=== PATIENT | male | born 1960 | race Caucasian/White ===

== ENCOUNTER 2024-03-16 14:20 | Inpatient (IN) | payer MEDICARE, SELFPAY ==
[2024-03-16] VITALS (7 sets, daily range): BP systolic 155–230; BP diastolic 67–93; PULSE 74–98; RESP 15–18; TEMP 36.2–37.3; O2SAT 94–98; BMI 25.2; BMI 24.5
--- NOTE | 2024-03-16 14:44 | EKG12_ITS ---
Test Reason : Blood Pressure : */* mmHG Vent. Rate : 75 BPM Atrial Rate : 75 BPM P-R Int : 154 ms QRS Dur : 98 ms QT Int : 396 ms P-R-T Axes : 36 65 129 degrees QTcB Int : 442 ms Normal sinus rhythm ST & T wave abnormality, consider anterolateral ischemia Abnormal ECG Confirmed by DOUG HUNTER, XIOMARA ([id number]), editor in chief JAMES MENDOZA ([id number]) on 03/18/2024 6:33:22 AM Referred By: Confirmed By: XIOMARA CAMACHO MD
[2024-03-16] MEDS: Ondansetron 4 MG/2 ML Vial IV (14:57)
[2024-03-16] MEDS: Morphine 4 MG/ML Syringe IV (14:58)
[2024-03-16 15:00] LABS: Absolute Lymphocyte Count 2.34 X10^3/uL (0.83-4.51); Absolute Neutrophil Count 8.3 X10^3/uL (2.0-7.7); Basophil# 0.07 X10^3/uL; Basophil% 0.6 % (0-1); Eosinophil# 0.02 X10^3/uL; Eosinophils% 0.2 % (0-5); Hematocrit 54.8 % (40-54); Lymphocyte # 2.34 X10^3/ul (0.83-4.51); Lymphocyte % 20.1 % (19-41); Mean Corp Hgb Conc 34.3 g/dL (32-36); Mean Corpuscular Hgb 32.4 pg (27.0-32.0); Mean Corpuscular Volume 94.5 fL (80-94); Mean Platelet Vol. 11.1 fl (6.2-12.0); Monocyte# 0.79 X10^3/uL; Monocyte% 6.8 % (0-10); NRBC Flagged by Analyzer 0 % (0-5); Neutrophil # 8.34 X10^3/uL (2.7-7.7); Neutrophil % 71.8 % (47-70); Platelet Count 199 K/mm3 (150-450); RBC Distribution Width CV 13.1 % (11.6-14.6); RBC Distribution Width SD 45.6 fl (35.1-43.9); White Blood Count 11.6 K/mm3 (4.4-11.0)
[2024-03-16 15:05] LABS: Differential Indicated SCAN CRITERIA MET; Hemoglobin 18.8 g/dL (13.0-16.5)
[2024-03-16 15:14] LABS: International Normalized Ratio 0.9; Partial Thromboplast Time 29.7 Seconds (24.1-36.2); Prothrombin Time (Protime)PT. 12.6 SECONDS (11.7-14.9)
--- NOTE | 2024-03-16 15:16 | CT_ITS ---
STUDY: CTA OF THE ABDOMINAL AORTA AND BILATERAL LOWER EXTREMITIES REASON FOR EXAM: Male, 64 years old. Ischemic painful right foot and bilateral short di -- Short distance claudicate are bilaterally RADIATION DOSAGE (If Supplied By Facility): CTDIvol = ( 7.57 ) mGy, DLP = ( 1407.80 ) mGycm TECHNIQUE: Axial CT angiography multi-detector data acquisition was obtained from the to the following intravenous administration of IV 100mL Isovue-370. Axial images and MIP images were reconstructed from the axial data set. Post-processing of the angiographic images was performed, with multiplanar reformation and 3D reconstruction. Individualized dose optimization techniques were used for this CT. The protocol utilizes one or more of the following dose reduction techniques: automated exposure control, adjustment of mA and/or kV according to patient size,and/or use of iterative reconstruction technique. TECHNICAL QUALITY: Good COMPARISON: None. Descriptors of Narrowing: None (0%) Mild (< 50%) Moderate (50-70%) Severe (70-90%) Subtotal/Total Occlusion (90-100%) Non-Evaluable (technically non-diagnostic FINDINGS: Calcific coronary artery disease. Air-fluid levels in the small large bowel. Hollow and solid and viscus otherwise unremarkable. Abdominal aorta: No demonstrated narrowing. Celiac and superior mesenteric arteries: There is moderate diffuse narrowing. Inferior mesenteric artery: There is severe diffuse narrowing. Right renal artery(arteries): No demonstrated narrowing. Left renal artery(arteries): No demonstrated narrowing. Right common iliac artery: There is mild diffuse narrowing. Right external iliac artery: There is severe diffuse narrowing. Right internal iliac artery: There is severe diffuse narrowing. Left common iliac artery: Occluded or nearly occluded. Left external iliac artery: Occluded or nearly occluded. Left internal iliac artery: There is severe diffuse narrowing. RIGHT LOWER EXTREMITY Right common femoral artery: There is mild diffuse narrowing. Right profundus femoris: There is moderate diffuse narrowing. Right superficial femoral: Occluded or nearly occluded Proximally With minimal reconstitution distally. Right popliteal artery: There is severe diffuse narrowing. Right tibioperoneal trunk: There is severe diffuse narrowing. Right anterior tibial artery: There is severe diffuse narrowing, with visualization of the vessel to the distal calf. Right posterior tibial artery: There is severe diffuse narrowing, with visualization of the vessel to the distal calf. Right peroneal artery: There is severe diffuse narrowing, with visualization of the vessel to the distal calf. LEFT LOWER EXTREMITY Left common femoral artery: There is moderate diffuse narrowing. Left profundus femoris: There is moderate diffuse narrowing. Left superficial femoral: Occluded or nearly occluded proximally with minimal reconstitution distally. Left popliteal artery: Occluded or nearly occluded Left tibioperoneal trunk: There is severe diffuse narrowing. Left anterior tibial artery: There is severe diffuse narrowing, with visualization of the vessel to the distal calf. Left posterior tibial artery: There is severe diffuse narrowing, with visualization of the vessel to the distal calf. Left peroneal artery: There is severe diffuse narrowing, with visualization of the vessel to the distal calf. CT/CTA Abd w/Runoff W/WO Contrast IMPRESSION: Occlusion left common and external iliac artery. Occlusion bilateral superficial femoral arteries with essentially no runoff below the knees. Prompt vascular surgery consultation recommended. N.B. : The above Results were Read Back by Harry Gibson MD to Gen Franco MD, and understanding confirmed on 03/16/2024 17:31:20 (ET). Electronically Signed: Harry Gibson MD at 17:32 EST ,
[2024-03-16 15:19] LABS: ALB/GLOB Ratio 0.9 RATIO (0.9-2.4); AST(SGOT) 16 U/L (15-37); Alanine Aminotransfer ALT/SGPT 20 U/L (16-61); Albumin, Serum 3.4 g/dL (3.2-5.0); Alkaline Phosphatase 74 U/L (45-117); Anion Gap 8 (5-15); BUN 8 mg/dL (7-18); Calcium,Total 9.4 mg/dL (8.5-10.1); Chloride 101 mmol/L (98-107); EST Glomerular Filtration Rate 103 mL/min (>60); Est Glom Filt Rate - Afr Amer 125 mL/min (>60); Estimated Creatinine Clearance 102.65 ml/min; Globulin 3.8 g/dL (2.2-4.2); Glucose 116 mg/dL (74-106); Potassium 4.3 mmol/L (3.5-5.1); Protein, Total 7.2 g/dL (6.4-8.2); Sodium Level 133 mmol/L (136-145)
[2024-03-16] MEDS: HEPARIN/D5w 25,000 UNITS 25,000 UNITS/250 ML IV.SOLN. 12 UNITS CONT INF (15:41)
[2024-03-16] MEDS: Heparin Injection (Vial) 5,000 UNIT/ML VIAL 6000 UNIT IV (15:41)
[2024-03-16 15:49] LABS: Prothrombin Time (Protime)PT. 12.8 SECONDS (11.7-14.9)
[2024-03-16 15:50] LABS: Partial Thromboplast Time 30.2 Seconds (24.1-36.2)
--- NOTE | 2024-03-16 16:37 | EX.ED.DYSGE1 ---
HPI <Dr. Gen Franco MD - Last Filed: 03/17/24 11:59> History of Present Illness Chief Complaint: Lower Extremity Injury [facility] <Dr. Gen Franco MD - Last Filed: 03/17/24 11:59> [facility] Medical History Alcohol abuse Smoker Home Medications ?Medication ?Instructions ?Recorded ?Last Taken ?Type NK 03/16/24 Unknown History Allergy/AdvReac Type Severity Reaction Status Date / Time No Known Allergies Allergy Verified 03/16/24 14:21 Social History Smoking Status: Heavy Smoker (>10/day) EXAM <Dr. Gen Franco MD - Last Filed: 03/17/24 11:59> Physical Exam Const Vital Signs: 03/16/24 14:21 03/16/24 16:21 03/16/24 18:00 Temperature 97.2 F L Temperature Source Temporal Pulse Rate 98 75 85 Respiratory Rate 15 15 18 Blood Pressure 230/86 H 155/77 H Blood Pressure Mean 134 103 Pulse Ox 98 96 Oxygen Delivery Method Room Air Room Air Room Air 03/16/24 19:06 Temperature 97.8 F Temperature Source Pulse Rate 74 Respiratory Rate 18 Blood Pressure 164/93 H Blood Pressure Mean 116 Pulse Ox 94 Oxygen Delivery Method Positive well nourished and well developed General Appearance ED: well developed and NAD HEENT Reports moist mucous membranes HEENT Narrative: Head is atraumatic, cephalic. Ears normal. Nares patent. Eyes PERRL and EOMs intact bilaterally General Eye ED: Negative for pale conjunctiva or scleral icterus Neck no lymphadenopathy, supple and no JVD Resp normal respiratory effort and clear to auscultation bilaterally Cardio regular rate, regular rhythm, S1 normal heart sound, S2 normal heart sound and no murmurs GI normal to inspection, nondistended, normoactive bowel sounds, non-tender, non-distended and no masses; Negative for hepatosplenomegaly Extremity Negative for normal to inspection Extremity Narrative: Patient has stigmata of peripheral arterial disease bilaterally. Patient does not have palpable DP or PT pulse bilaterally. There is monophasic flow PT bilaterally. There is no flow noted right DP and monophasic flow left DP. There is pallor distal dorsal medial right foot. There is evidence of acrocyanosis distal aspect of the right great toe. Capillary fill is slightly diminished. The area of pallor is cooler on the affected side versus the unaffected side. Neuro oriented x3, CN's II-XII intact bilaterally and No no sensory deficits noted Neuro Narrative: Altered sensation right foot as previously documented Sensorium / Orientation: alert Motor Exam: strength 5/5 throughout Psych mental status grossly normal Skin Skin Narrative: Patient has evidence of dry skin. He has localized pallor as previously described. <Dr. Fortunato Hernandez DO - Last Filed: 03/17/24 03:01> Physical Exam Const Vital Signs: 03/16/24 14:21 03/16/24 16:21 03/16/24 18:00 Temperature 97.2 F L Temperature Source Temporal Pulse Rate 98 75 85 Respiratory Rate 15 15 18 Blood Pressure 230/86 H 155/77 H Blood Pressure Mean 134 103 Pulse Ox 98 96 Oxygen Delivery Method Room Air Room Air Room Air 03/16/24 19:06 Temperature 97.8 F Temperature Source Pulse Rate 74 Respiratory Rate 18 Blood Pressure 164/93 H Blood Pressure Mean 116 Pulse Ox 94 Oxygen Delivery Method MDM <Dr. Gen Franco MD - Last Filed: 03/17/24 11:59> MDM MDM Narrative Medical decision making narrative: Patient with subacute ischemic right foot. Appropriate blood work was obtained as well as EKG and patient was started on heparin. Case was discussed with Dr. Peter's nurse practitioner Sheron. She requested a CTA of the abdomen with runoff. This was ordered. Since he has not seen a physician in some time obtain CBC to assess H&H, competence metabolic panel to assess renal function, electrolytes, glucose. EKG to assess for any evidence of LVH since his pressure is elevated 230/86. Lab Data Attestation: I reviewed the patient's lab results. Lab results narrative: CBC is remarkable slight elevation white count 11.6 which is nonspecific. H&H is elevated at 18.8 and 54.8 which probably represents second Vu polycythemia vera due to the fact that he is a smoker and has smoked for greater than 40 years. Coags normal. Comprehensive metabolic panel reveals mild hyponatremia and mild hyperglycemia of 133 and 116 respectively. Labs: Laboratory Results - last 24 hr 03/16/24 03/16/24 03/16/24 14:50 15:22 16:45 WBC 11.6 H RBC 5.80 Hgb 18.8 H* Hct 54.8 H MCV 94.5 H MCH 32.4 H MCHC 34.3 RDW Std Deviation 45.6 H RDW Coeff of Brent 13.1 Plt Count 199 MPV 11.1 Immature Gran % (Auto) 0.500 Neut % (Auto) 71.8 H Lymph % (Auto) 20.1 [place] % (Auto) 6.8 Eos % (Auto) 0.2 Baso % (Auto) 0.6 Absolute Neuts (auto) 8.3 H Absolute Lymphs (auto) 2.34 Nucleated RBC % 0 Differential Comment COMMENT Diff Path Review July foll PT 12.6 12.8 INR 0.9 1.0 APTT 29.7 30.2 Sodium 133 L Potassium 4.3 Chloride 101 Carbon Dioxide 24.0 Anion Gap 8 BUN 8 Creatinine 0.80 Estim Creat Clear Calc 102.65 Est GFR (MDRD) Af Amer 125 Est GFR (MDRD) Non-Af 103 BUN/Creatinine Ratio 10.0 Glucose 116 H Calcium 9.4 Total Bilirubin 0.80 AST 16 ALT 20 Alkaline Phosphatase 74 Troponin I High Sens 23 Total Protein 7.2 Albumin 3.4 Globulin 3.8 Albumin/Globulin Ratio 0.9 Radiography Diagnostic Testing: Clinical Impression(s) from Imaging Studies Abdomen/Pelvis CTA 03/16/24 15:16 IMPRESSION: Occlusion left common and external iliac artery. Occlusion bilateral superficial femoral arteries with essentially no runoff below the knees. Prompt vascular surgery consultation recommended. N.B. : The above Results were Read Back by Harry Gibson MD to Gen Franco MD, and understanding confirmed on 03/16/2024 17:31:20 (ET). Electronically Signed: Harry Gibson MD at 17:32 EST , ADDENDUM: 03/16/24 8926 IMPRESSION: Occlusion left common and external iliac artery. Occlusion bilateral superficial femoral arteries with essentially no runoff below the knees. Prompt vascular surgery consultation recommended. N.B. : The above Results were Read Back by Harry Gibson MD to Gen Franco MD, and understanding confirmed on 03/16/2024 17:31:20 (ET). Electronically Signed: Harry Gibson MD at 17:32 EST , EKG Initial EKG: Attestation: I personally reviewed and interpreted this EKG as follows: Interpretation: Sinus Rhythm (Rate is 75. There is evidence of LVH with repolarization changes in my opinion. Computer is reading ischemia. Troponin was ordered. NJ interval is under 54 ms. QS duration 98 ms. QT duration 396 ms. Alice is normal.) Management Discussion w/another healthcare provider: Hospitalist (Dr. Bryant was made aware of patient. Patient be admitted to [facility] unless there is a significant abnormality noted on the CTA of the abdomen with runoffs.) and [employer] (Vascular was consulted. This was documented in the MDM/plan portion of the medical record) <Dr. Fortunato Hernandez, DO - Last Filed: 03/17/24 03:01> [facility] MDM Narrative Medical decision making narrative: Patient with subacute ischemic right foot. Appropriate blood work was obtained as well as EKG and patient was started on heparin. Case was discussed with Dr. Peter's nurse practitioner Sheron. She requested a CTA of the abdomen with runoff. This was ordered. Since he has not seen a physician in some time obtain CBC to assess H&H, competence metabolic panel to assess renal function, electrolytes, glucose. EKG to assess for any evidence of LVH since his pressure is elevated 230/86. Dr. Hernandez: Patient was signed out to me by Dr. Franco. At the time of sign out patient's CTA was pending. Labs had already resulted and reviewed by Dr. Franco. CTA shows occlusion of the left common and external iliac artery. He has occlusion bilaterally superficial femoral arteries with essentially no runoff below the knees. Patient is already on heparin drip that was started by Dr. Franco. Currently at this time vascular surgery is not on for consults however given that Dr. Franco discussed case with Dr. Peter's nurse practitioner Sheron I did contact her given these new findings. Okay with admission to our hospital given that patient's symptoms appear chronic in nature and not acute. On Dr. Franco's assessment patient had no dopplerable right DP and a monophasic left DP. Sheron asked me if my exam is similar. On my examination, I could not obtain Doppler DP or PT bilaterally. He does have Doppler femoral pulses. I did update Sheron with these findings. Given that the patient told me his symptoms have been ongoing for several weeks Sheron is okay with admission. Agrees with heparin drip. Vascular surgery will see in consult. I spoke with Dr. Dunbar who accepted admission. Patient and family confirmed understanding. They are in agreement. Patient did not want to transfer to a different hospital. Impression: 1. Occlusion of the left common and external iliac artery 2. Occlusion bilaterally of the superficial femoral arteries with essentially no runoff below the knees 3. Hemoconcentration Lab Data Labs: Laboratory Results - last 24 hr 03/16/24 03/16/24 03/16/24 14:50 15:22 16:45 WBC 11.6 H RBC 5.80 Hgb 18.8 H* Hct 54.8 H MCV 94.5 H MCH 32.4 H MCHC 34.3 RDW Std Deviation 45.6 H RDW Coeff of Brent 13.1 Plt Count 199 MPV 11.1 Immature Gran % (Auto) 0.500 Neut % (Auto) 71.8 H Lymph % (Auto) 20.1 [place] % (Auto) 6.8 Eos % (Auto) 0.2 Baso % (Auto) 0.6 Absolute Neuts (auto) 8.3 H Absolute Lymphs (auto) 2.34 Nucleated RBC % 0 Differential Comment COMMENT Diff Path Review May foll PT 12.6 12.8 INR 0.9 1.0 APTT 29.7 30.2 Sodium 133 L Potassium 4.3 Chloride 101 Carbon Dioxide 24.0 Anion Gap 8 BUN 8 Creatinine 0.80 Estim Creat Clear Calc 102.65 Est GFR (MDRD) Af Amer 125 Est GFR (MDRD) Non-Af 103 BUN/Creatinine Ratio 10.0 Glucose 116 H Calcium 9.4 Total Bilirubin 0.80 AST 16 ALT 20 Alkaline Phosphatase 74 Troponin I High Sens 23 Total Protein 7.2 Albumin 3.4 Globulin 3.8 Albumin/Globulin Ratio 0.9 Radiography Diagnostic Testing: Clinical Impression(s) from Imaging Studies Abdomen/Pelvis CTA 03/16/24 15:16 IMPRESSION: Occlusion left common and external iliac artery. Occlusion bilateral superficial femoral arteries with essentially no runoff below the knees. Prompt vascular surgery consultation recommended. N.B. : The above Results were Read Back by Harry Gibson MD to Gen Franco MD, and understanding confirmed on 03/16/2024 17:31:20 (ET). Electronically Signed: Harry Gibson MD at 17:32 EST , ADDENDUM: 03/16/24 1739 IMPRESSION: Occlusion left common and external iliac artery. Occlusion bilateral superficial femoral arteries with essentially no runoff below the knees. Prompt vascular surgery consultation recommended. N.B. : The above Results were Read Back by Harry Gibson MD to Gen Franco MD, and understanding confirmed on 03/16/2024 17:31:20 (ET). Electronically Signed: Harry Gibson MD at 17:32 EST , <Dr. Gen Franco MD - Last Filed: 03/17/24 11:59> Critical Care Time Critical Care Time: Yes Critical care time (excluding procedures): 30-74 minutes (31), Including time spent: (History, physical, documentation), Discussing w/Patient &/or Family/Statistical Developer (Discussion with patient and significant other), Discussing w/Consultants (Hospitalist and vascular surgeon), Arranging Admission or Transfer and Performing Direct Patient Care at Bedside Discharge Plan Dx/Rx/DC Orders Clinical Impression: Ischemic pain of right foot, Elevated blood-pressure reading without diagnosis of hypertension, Tobacco use, Acquired polycythemia vera Disposition Disposition: Acute Care Hospital [facility] Discharge Date/Time: 03/16/24 19:38
[2024-03-16 17:14] LABS: Troponin-I HS 23 pg/mL (3.0-78.0)
--- NOTE | 2024-03-16 19:21 | PCM.HP.STD ---
HPI - General General Date of Admission: 03/16/24 Date of Service: 03/16/24 Chief Complaint: Lower extremity pain HPI Narrative ZEUS OBREGON, is a 64y/o male w/ hx of tobacco use presented to [facility] ED 03/16/24 due to right foot pain and redness without injury. He has been having claudication symptoms in his right leg for a month and pain at rest for 1 week, today sent in by urgent care due to concerns for decreased blood flow to foot. Patient has not been to a doctor for ages. In the ED he had evidence of diminished flow to the right foot, vascular surgery consulted and felt it is reasonable for patient to be admitted to our hospital with surgical consultation pending CT results. Patient started on heparin drip and CTA with runoff obtained which showed occlusion of the left common and external iliac arteries and occlusion bilateral superficial femoral arteries with essentially no runoff below the knees. Given patient's symptoms are subacute and he is stable ED physician discussed with vascular and was felt reasonable to admit patient medically with vascular consult. Hospitalist contacted for admission. Patient evaluated family at bedside, reportedly he has had some pain in his leg on ambulation for the past month or so and for the past couple weeks his leg has been red for the past 1 week he has had pain at rest. Nothing specific changed today but given it is just been progressive and worsening with no improvement he presented to the ED. Since being started on heparin drip the rest pain is gone. Patient does not feel that he has any lower extremity paresthesias at this time, reports he does have some pain in his buttock from sitting on these beds but otherwise ROS negative. No chest pain or shortness of breath, no other new or acute complaints [facility] Medical History Alcohol abuse Smoker Home Medications ?Medication ?Instructions ?Recorded ?Last Taken ?Type NK 03/16/24 Unknown History Allergy/AdvReac Type Severity Reaction Status Date / Time No Known Allergies Allergy Verified 03/16/24 14:21 Social History Smoking Status: Heavy Smoker (>10/day) ROS ROS Narrative General: Denies fever/chills HENT: Denies headache, denies stuffy nose, denies sore throat EYES: Denies changes in vision Resp: Denies cough, denies shortness of breath Cardiac: Denies chest pain GI: No significant diarrhea or constipation, no nausea or vomiting : Denies changes in urination Extremity: Denies swelling MSK some weakness in both lower extremities, pain especially in right lower extremity on ambulation and recently with rest but not during exam Neuro: Denies any numbness/tingling Heme: Denies any bleeding or bruising Skin: Right leg has been red and cool Psychiatric: No complaints voiced Vital Signs Vital Signs Vital Signs: 03/16/24 14:21 03/16/24 16:21 03/16/24 18:00 Temperature 97.2 F L Temperature Source Temporal Pulse Rate 98 75 85 Respiratory Rate 15 15 18 Blood Pressure 230/86 H 155/77 H Blood Pressure Mean 134 103 Pulse Ox 98 96 Oxygen Delivery Method Room Air Room Air Room Air 03/16/24 19:06 Temperature 97.8 F Temperature Source Pulse Rate 74 Respiratory Rate 18 Blood Pressure 164/93 H Blood Pressure Mean 116 Pulse Ox 94 Oxygen Delivery Method Weight Weight: 86.636 kg Body Mass Index (BMI) 25.2 Physical Exam Narrative General: Alert, oriented, no apparent distress HEENT: Atraumatic, normocephalic Eyes: Anicteric, normal conjunctiva, extraocular movements grossly intact Neck: Supple Respiratory: Clear to auscultation bilaterally, normal respiratory effort Cardiovascular: Regular rate and rhythm GI: Soft, nontender, nondistended Extremities: Both extremities are cool to the touch and patient denies any paresthesias, difficulty palpating pulses bilaterally, no current pain on palpation, does have lower extremity erythema right greater than left Musculoskeletal: Moving all extremities Neuro: No overt focal neurological deficits Skin: Right lower extremity erythematous Psych: Cooperative Results Lab / Micro Data 03/16/24 14:50 03/16/24 14:50 Labs: Laboratory Results - last 24 hr 03/16/24 14:50: WBC 11.6 H, RBC 5.80, Hgb 18.8 H*, Hct 54.8 H, MCV 94.5 H, MCH 32.4 H, MCHC 34.3, RDW Std Deviation 45.6 H, RDW Coeff of Brent 13.1, Plt Count 199, MPV 11.1, Immature Gran % (Auto) 0.500, Neut % (Auto) 71.8 H, Lymph % (Auto) 20.1, [place] % (Auto) 6.8, Eos % (Auto) 0.2, Baso % (Auto) 0.6, Absolute Neuts (auto) 8.3 H, Absolute Lymphs (auto) 2.34, Nucleated RBC % 0, Differential Comment COMMENT, Diff Path Review July foll, PT 12.6, INR 0.9, APTT 29.7, Sodium 133 L, Potassium 4.3, Chloride 101, Carbon Dioxide 24.0, Anion Gap 8, BUN 8, Creatinine 0.80, Estim Creat Clear Calc 102.65, Est GFR (MDRD) Af Amer 125, Est GFR (MDRD) Non-Af 103, BUN/Creatinine Ratio 10.0, Glucose 116 H, Calcium 9.4, Total Bilirubin 0.80, AST 16, ALT 20, Alkaline Phosphatase 74, Total Protein 7.2, Albumin 3.4, Globulin 3.8, Albumin/Globulin Ratio 0.9 03/16/24 15:22: PT 12.8, INR 1.0, APTT 30.2 03/16/24 16:45: Troponin I High Sens 23 Imaging Radiology Impression Abdomen/Pelvis CTA 03/16/24 15:16 IMPRESSION: Occlusion left common and external iliac artery. Occlusion bilateral superficial femoral arteries with essentially no runoff below the knees. Prompt vascular surgery consultation recommended. N.B. : The above Results were Read Back by Harry Gibson MD to Gen Franco MD, and understanding confirmed on 03/16/2024 17:31:20 (ET). Electronically Signed: Harry Gibson MD at 17:32 EST Reading Location ID and State: [facility] / [place] Tel , Service support , ADDENDUM: 03/16/24 1739 IMPRESSION: Occlusion left common and external iliac artery. Occlusion bilateral superficial femoral arteries with essentially no runoff below the knees. Prompt vascular surgery consultation recommended. N.B. : The above Results were Read Back by Harry Gibson MD to Gen Franco MD, and understanding confirmed on 03/16/2024 17:31:20 (ET). Electronically Signed: Harry Gibson MD at 17:32 EST , Assessment & Plan Assessment/Plan (1) PAD (peripheral artery disease): PLAN: Plan # Right leg pain in setting of bilateral occlusion of superficial femoral arteries with essentially no runoff below the knees -CTA with runoff with occlusion of left common external iliac artery, occlusion of bilateral superficial femoral arteries with essentially no runoff below the knees -Vascular surgery consult -Heparin drip -Discussed with vascular surgery, will place patient on aspirin and statin at this time we will continuing heparin drip -Was advised echo be obtained given patient's lack of previous healthcare and likely need for surgery -N.p.o. at midnight in the event interventions able to be done tomorrow though this is not definitive -Check lipid panel and A1c #PAD -Seen on CT -Continue heparin gtt -Aspirin, statin -Vascular c/s as above #HTN urgency -Systolic blood pressure 230 on presentation and downtrended to 155/77 -Hydralazine as needed -Can start scheduled agent if this remains elevated #Tobacco use -Daily smoker for 40 years now down to 1 pack/day -Advise cessation -Nicotine replacement available if desired # Elevated hemoglobin -Possibly secondary to his chronic tobacco use history -May need further workup on an outpatient basis with lab work and/or sleep study #DVT ppx: On heparin drip Nga Dunbar MD Charges/Coding Visit Charges Inpatient E&M: 89843 Init Hosp L2
--- NOTE | 2024-03-16 19:56 | ECHOD_ITS ---
Reason For Study: Limb Ischemia Procedure This was a 2D Doppler, Color Flow transthoracic echocardiogram. Myocardial strain analysis was performed in this exam to aid in the assessment of cardiac function. Exam performed portable in patient room. Left Ventricle Normal LV size. The left ventricular ejection fraction is 50 %. Mild to moderate segmental systolic dysfunction (see wall motion). Stage 1 diastolic dysfunction. Mid-Inferior: Hypokinetic. Infero- Basal: Hypokinetic. Posterior-Basal: Hypokinetic. Mid-Posterior: Hypokinetic. Right Ventricle Normal RV size. Normal systolic function. Atria The left atrium is mildly enlarged. The right atrium is mildly enlarged. Mitral Valve There is mild to moderate mitral annular calcification. Mild (1+) eccentric mitral valve insufficiency. Tricuspid Valve Normal tricuspid valve. Mild tricuspid valve insufficiency. Aortic Valve Trisinus/trileaflet aortic valve. Pulmonic Valve Normal pulmonic valve. Great Vessels Normal aortic root. The pulmonary artery is normal size. Normal inferior vena cava. Pericardium/Pleural No pericardial effusion. MMode/2D Measurements & Calculations LVIDd: 4.6 cm IVSd: 1.8 cm Ao root diam: 3.6 cm LVIDs: 3.4 cm LVPWd: 1.3 cm RVDd: 3.8 cm FS: 27.2 % LAV(MOD-bp): 90.0 ml LVAd ap4: 40.0 cm2 SV(MOD-sp4): 64.9 ml LAV(MOD-bp) Indexed: 43.2 ml/m2 LVLd ap4: 9.9 cm SI(MOD-sp4): 31.2 ml/m2 LAV(MOD-sp2): 92.0 ml EDV(MOD-sp4): 135.4 ml LAV(MOD-sp4): 86.6 ml EDV(sp4-el): 137.5 ml LVAs ap4: 25.9 cm2 LVLs ap4: 8.4 cm ESV(MOD-sp4): 70.5 ml ESV(sp4-el): 67.7 ml EF(MOD-sp4): 47.9 % EF(sp4-el): 50.8 % SV(sp4-el): 69.8 ml LA A4 area: 25.6 cm2 LA dimension(2D): 4.7 cm RA A4 area: 21.7 cm2 TAPSE: 2.6 cm Time Measurements MV dec time: 0.30 sec Doppler Measurements & Calculations MV E max casimiro: 88.4 cm/sec Lat Peak E' Casimiro: 8.1 cm/sec Med Peak E' Casimiro: 6.1 cm/sec MV A max casimiro: 98.3 cm/sec E/E' lat: 10.9 E/E' med: 14.5 MV E/A: 0.90 MV V2 max: 110.7 cm/sec MV P1/2t max casimiro: 90.3 cm/sec Ao V2 max: 149.5 cm/sec MV max P.9 mmHg MV P1/2t: 99.5 msec Ao max P.9 mmHg MV V2 mean: 58.6 cm/sec Ao V2 mean: 98.5 cm/sec MV mean P.6 mmHg MV dec slope: 265.9 cm/sec2 Ao mean P.4 mmHg MV V2 VTI: 43.1 cm MVA(P1/2t): 2.2 cm2 Ao V2 VTI: 32.6 cm PA V2 max: 83.7 cm/sec PA V2 mean: 56.6 cm/sec ECHO/Echo Complete Interpretation Summary Normal LV size. The left ventricular ejection fraction is 50 %. Mild to moderate segmental systolic dysfunction (see wall motion). Stage 1 diastolic dysfunction. The global longitudinal strain is moderately abnormal. The global longitudinal strain = -12.8% (abnormal). Ordering Physician: Nga Dunbar Performed By: Fortunato Correa RCS
[2024-03-16] MEDS: 0.9% Normal Saline (1000mL) 1,000 ML 75 ML IV (20:32)
[2024-03-16] MEDS: hydrALAZINE 20 MG/ML Vial 5 MG IV (20:33)
[2024-03-16] MEDS: Aspirin 81 MG TAB.CHEW PO (20:33)
[2024-03-16 22:26] LABS: Partial Thromboplast Time 90.3 Seconds (24.1-36.2)
[2024-03-16] MEDS: Atorvastatin Calcium 80 MG Tablet PO (22:50)
[2024-03-17] VITALS (8 sets, daily range): BP systolic 150–188; BP diastolic 66–77; PULSE 55–80; RESP 16–18; TEMP 36.4–37.1; O2SAT 94–98; BMI 24.5
[2024-03-17] MEDS: Acetaminophen 325 MG Tablet 650 MG PO ×2 (02:44→08:54)
[2024-03-17 04:58] LABS: Absolute Lymphocyte Count 2.68 X10^3/uL (0.83-4.51); Absolute Neutrophil Count 7.1 X10^3/uL (2.0-7.7); Basophil# 0.07 X10^3/uL; Basophil% 0.6 % (0-1); Eosinophil# 0.04 X10^3/uL; Eosinophils% 0.4 % (0-5); Hematocrit 49.8 % (40-54); Hemoglobin 17.1 g/dL (13.0-16.5); Lymphocyte # 2.68 X10^3/ul (0.83-4.51); Lymphocyte % 24.8 % (19-41); Mean Corp Hgb Conc 34.3 g/dL (32-36); Mean Corpuscular Hgb 32.2 pg (27.0-32.0); Mean Corpuscular Volume 93.8 fL (80-94); Mean Platelet Vol. 10.9 fl (6.2-12.0); Monocyte% 7.4 % (0-10); NRBC Flagged by Analyzer 0 % (0-5); Neutrophil # 7.13 X10^3/uL (2.7-7.7); Neutrophil % 66.2 % (47-70); Platelet Count 186 K/mm3 (150-450); RBC Distribution Width CV 13.3 % (11.6-14.6); RBC Distribution Width SD 45.4 fl (35.1-43.9); Red Blood Count 5.31 M/mm3 (4.6-6.2); White Blood Count 10.8 K/mm3 (4.4-11.0)
[2024-03-17 05:14] LABS: Partial Thromboplast Time 61.4 Seconds (24.1-36.2)
[2024-03-17 05:41] LABS: Anion Gap 6 (5-15); BUN 8 mg/dL (7-18); BUN/Creat Ratio 13.4 RATIO (10-20); Calcium,Total 8.8 mg/dL (8.5-10.1); Chloride 105 mmol/L (98-107); Cholesterol 149 mg/dL (200); EST Glomerular Filtration Rate 144 mL/min (>60); Est Glom Filt Rate - Afr Amer 174 mL/min (>60); Estimated Creatinine Clearance 102.65 ml/min; Glucose 103 mg/dL (74-106); High Density Lipoprotein 65 mg/dL; Sodium Level 134 mmol/L (136-145); Triglycerides 79 mg/dL; Very Low Density Lipoprotein 16 mg/dL (5-40)
--- NOTE | 2024-03-17 07:06 | ART_ITS ---
Reason For Study: PAD, Rest pain Procedure A bilateral lower extremity continuous wave Doppler with analog waveform analysis and ankle brachial indexes. Left Segmental Pressures Left brachial= 176mmHg. Left posterior tibial artery = 44mmHg. Left dorsalis pedis artery = 22mmHg. The left dorsalis pedis waveforms are monophasic. The left posterior tibial artery waveforms are monophasic. Right Segmental Pressures Right brachial= 168mmHg. Right posterior tibial artery = 38mmHg. The right posterior tibial artery waveforms are monophasic. The right dorsalis pedis waveforms are absent. Indices The right ankle brachial index by the posterior tibial artery is 0.22. The left ankle brachial index by the dorsalis pedis is 0.13. The left ankle brachial index by the posterior tibial artery is 0.25. . Preliminary report given to Jacquelin MORLEY. VL/Ankle Brachial Index Interpretation Summary Right LYUDMILA 0.22, severe arterial insufficiency. Doppler/PVR waveforms of the rig ht ankle severely diminished at rest. Left LYUDMILA 0.25, severe arterial insufficiency. Doppler/PVR waveforms of the left ankle severely diminished at rest. Ordering Physician: Sheron Oakes Performed By: Lucrecia Lara RVT and Student
[2024-03-17 08:04] LABS: Hemoglobin A1c 5.2 % (3.8-5.6)
--- NOTE | 2024-03-17 08:07 | CON.PCM.SX_ITS ---
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 Discussed procedure details including risks, benefits, and recovery. He is agreeable to proceed. His echo today was abnormal. Will consult cardiology for their evaluation and recommendations prior to angio on . HPI Consult Data Date of Consult: 03/17/24 HPI Narrative HPI Narrative: ZEUS OBREGON, is a 64 M who presented to the [facility] ER last night with a 1-2 week history of rest pain in the R foot. Exam was consistent with subacute ischemic and CTA revealed diffuse atherosclerosis notably R EIA occlusion, L EDWARD/EIA occlusion, L femoral/profunda occlusion. He was admitted on heparin drip for further vascular evaluation. He reports that about 4-6 weeks ago he developed short-distance claudication in his R calf which continued to progressively worsen to about 1-2 weeks ago when he developed rest pain in his R foot, particularly his R great toe. He has also noticed over the last week that his R foot seems to get very red after periods of rest or after a shower. His pain at home would improve some with dangling his legs. He denies any wounds/ulcerations. He reports some claudication into his LLE but not has bad as the R. He denies any prior vascular surgical interventions. He has not had any medical care/followup in the last several years. He does smoke, about 1 ppd for the last 40 years. He is not diabetic to his knowledge, A1c today was 5.2. He reports his R foot pain has improved since being started on heparin drip here. [facility] Medical History Alcohol abuse Smoker Home Medications ?Medication ?Instructions ?Recorded ?Last Taken ?Type NK 03/16/24 Unknown History Allergy/AdvReac Type Severity Reaction Status Date / Time No Known Allergies Allergy Verified 03/16/24 14:21 Social History Smoking Status: Heavy Smoker (>10/day) Physical Exam Const alert, oriented x3 and no apparent distress General Appearance: cooperative and comfortable HEENT normocephalic, head/scalp atraumatic, hearing grossly normal bilaterally, external ears normal and external nose normal Eyes EOMs intact bilaterally General Eye: normal appearance of both eyes Neck General: normal visual inspection and trachea midline Resp normal respiratory effort, no retractions and no use of accessory muscles Effort and Inspection: able to speak in complete sentences Cardio Rate: regular rate Rhythm: regular rhythm Extremity Extremity Narrative: Pedal pulses nonpalpable. R and L PT monophasic, unable to find DP pulses with doppler. R foot with rubor, hemosiderin deposition; R toe with pallor at the tip and plantar surface which improved in coloring after he moved his toes/foot a bit. Motor and sensory intact. L foot without notable discoloration/pallor Skin no rashes or lesions noted Wounds: Negative for wounds noted Neuro oriented x3, CN's II-XII intact bilaterally, moves all extremities, no focal motor deficits and no sensory deficits noted Speech: speech normal Psych mental status grossly normal, cooperative, affect normal, speech normal and activity/motor behavior normal Lab / Micro Data 03/17/24 04:49 03/17/24 04:49 Labs: Laboratory Results - last 24 hr 03/16/24 14:50: WBC 11.6 H, RBC 5.80, Hgb 18.8 H*, Hct 54.8 H, MCV 94.5 H, MCH 32.4 H, MCHC 34.3, RDW Std Deviation 45.6 H, RDW Coeff of Brent 13.1, Plt Count 199, MPV 11.1, Immature Gran % (Auto) 0.500, Neut % (Auto) 71.8 H, Lymph % (Auto) 20.1, [place] % (Auto) 6.8, Eos % (Auto) 0.2, Baso % (Auto) 0.6, Absolute Neuts (auto) 8.3 H, Absolute Lymphs (auto) 2.34, Nucleated RBC % 0, Differential Comment COMMENT, Diff Path Review July foll, PT 12.6, INR 0.9, APTT 29.7, Sodium 133 L, Potassium 4.3, Chloride 101, Carbon Dioxide 24.0, Anion Gap 8, BUN 8, Creatinine 0.80, Estim Creat Clear Calc 102.65, Est GFR (MDRD) Af Amer 125, Est GFR (MDRD) Non-Af 103, BUN/Creatinine Ratio 10.0, Glucose 116 H, Calcium 9.4, Total Bilirubin 0.80, AST 16, ALT 20, Alkaline Phosphatase 74, Total Protein 7.2, Albumin 3.4, Globulin 3.8, Albumin/Globulin Ratio 0.9 03/16/24 15:22: PT 12.8, INR 1.0, APTT 30.2 03/16/24 16:45: Troponin I High Sens 23 03/16/24 21:22: APTT 90.3 H* 03/17/24 04:49: WBC 10.8, RBC 5.31, Hgb 17.1 H, Hct 49.8, MCV 93.8, MCH 32.2 H, MCHC 34.3, RDW Std Deviation 45.4 H, RDW Coeff of Brent 13.3, Plt Count 186, MPV 10.9, Immature Gran % (Auto) 0.600, Neut % (Auto) 66.2, Lymph % (Auto) 24.8, [place] % (Auto) 7.4, Eos % (Auto) 0.4, Baso % (Auto) 0.6, Absolute Neuts (auto) 7.1, Absolute Lymphs (auto) 2.68, Nucleated RBC % 0, APTT 61.4 H, Sodium 134 L, Potassium 4.0, Chloride 105, Carbon Dioxide 23.0, Anion Gap 6, BUN 8, Creatinine 0.60 L, Estim Creat Clear Calc 102.65, Est GFR (MDRD) Af Amer 174, Est GFR (MDRD) Non-Af 144, BUN/Creatinine Ratio 13.4, Glucose 103, Hemoglobin A1c 5.2, Calcium 8.8, Triglycerides 79, Cholesterol 149, LDL Cholesterol 68, VLDL Cholesterol 16, HDL Cholesterol 65, TSH 5.470 H Imaging Radiology Impression Abdomen/Pelvis CTA 03/16/24 15:16 IMPRESSION: Occlusion left common and external iliac artery. Occlusion bilateral superficial femoral arteries with essentially no runoff below the knees. Prompt vascular surgery consultation recommended. N.B. : The above Results were Read Back by Harry Gibson MD to Gen Franco MD, and understanding confirmed on 03/16/2024 17:31:20 (ET). Electronically Signed: Harry Gibson MD at 17:32 EST , ADDENDUM: 03/16/24 1739 IMPRESSION: Occlusion left common and external iliac artery. Occlusion bilateral superficial femoral arteries with essentially no runoff below the knees. Prompt vascular surgery consultation recommended. N.B. : The above Results were Read Back by Harry Gibson MD to Gen Franco MD, and understanding confirmed on 03/16/2024 17:31:20 (ET). Electronically Signed: Harry Gibson MD at 17:32 EST , Charges/Coding Visit Charges Inpatient E&M: 14828 Init Hosp L2
[2024-03-17] MEDS: oxyCODONE 5 MG Tablet PO ×3 (08:54→20:08)
[2024-03-17] MEDS: Aspirin 81 MG TAB.CHEW PO (08:54)
[2024-03-17 10:50] LABS: Partial Thromboplast Time 57.3 Seconds (24.1-36.2)
[2024-03-17] MEDS: HEPARIN/D5w 25,000 UNITS 25,000 UNITS/250 ML IV.SOLN. 11 UNITS CONT INF (10:57)
--- NOTE | 2024-03-17 13:17 | PN_ITS ---
Subjective Subjective Patient seen and examined. Still complain of some burning and pain in his right lower extremity. He denied any fever or chills, nausea vomiting or any other symptoms. Review of systems otherwise negative. He remains on heparin drip. Objective Data Objective Data Vital Signs: Vital Signs Temp Pulse Resp BP Pulse Ox O2 Del Method 97.7 F L 66 18 159/77 H 95 Room Air 03/17/24 08:58 03/17/24 08:58 03/17/24 08:58 03/17/24 08:58 03/17/24 08:58 03/17/24 08:58 Oxygen Delivery Method Room Air Weight: 185 lb 10.067 oz Body Mass Index (BMI) 24.5 Intake & Output: Intake and Output for Last 24 Hours 03/15/24 03/16/24 03/17/24 23:59 23:59 23:59 Intake Total 85.6 / 85.6 883.47 / 883.47 Balance 85.6 / 85.6 883.47 / 883.47 Lab / Micro Data 03/17/24 04:49 03/17/24 04:49 Labs: Laboratory Results - last 24 hr 03/16/24 14:50: WBC 11.6 H, RBC 5.80, Hgb 18.8 H*, Hct 54.8 H, MCV 94.5 H, MCH 32.4 H, MCHC 34.3, RDW Std Deviation 45.6 H, RDW Coeff of Brent 13.1, Plt Count 199, MPV 11.1, Immature Gran % (Auto) 0.500, Neut % (Auto) 71.8 H, Lymph % (Auto) 20.1, [place] % (Auto) 6.8, Eos % (Auto) 0.2, Baso % (Auto) 0.6, Absolute Neuts (auto) 8.3 H, Absolute Lymphs (auto) 2.34, Nucleated RBC % 0, Differential Comment COMMENT, Diff Path Review July foll, PT 12.6, INR 0.9, APTT 29.7, Sodium 133 L, Potassium 4.3, Chloride 101, Carbon Dioxide 24.0, Anion Gap 8, BUN 8, Creatinine 0.80, Estim Creat Clear Calc 102.65, Est GFR (MDRD) Af Amer 125, Est GFR (MDRD) Non-Af 103, BUN/Creatinine Ratio 10.0, Glucose 116 H, Calcium 9.4, Total Bilirubin 0.80, AST 16, ALT 20, Alkaline Phosphatase 74, Total Protein 7.2, Albumin 3.4, Globulin 3.8, Albumin/Globulin Ratio 0.9 03/16/24 15:22: PT 12.8, INR 1.0, APTT 30.2 03/16/24 16:45: Troponin I High Sens 23 03/16/24 21:22: APTT 90.3 H* 03/17/24 04:49: WBC 10.8, RBC 5.31, Hgb 17.1 H, Hct 49.8, MCV 93.8, MCH 32.2 H, MCHC 34.3, RDW Std Deviation 45.4 H, RDW Coeff of Brent 13.3, Plt Count 186, MPV 10.9, Immature Gran % (Auto) 0.600, Neut % (Auto) 66.2, Lymph % (Auto) 24.8, [place] % (Auto) 7.4, Eos % (Auto) 0.4, Baso % (Auto) 0.6, Absolute Neuts (auto) 7.1, Absolute Lymphs (auto) 2.68, Nucleated RBC % 0, APTT 61.4 H, Sodium 134 L, Potassium 4.0, Chloride 105, Carbon Dioxide 23.0, Anion Gap 6, BUN 8, Creatinine 0.60 L, Estim Creat Clear Calc 102.65, Est GFR (MDRD) Af Amer 174, Est GFR (MDRD) Non-Af 144, BUN/Creatinine Ratio 13.4, Glucose 103, Hemoglobin A1c 5.2, Calcium 8.8, Triglycerides 79, Cholesterol 149, LDL Cholesterol 68, VLDL Cholesterol 16, HDL Cholesterol 65, TSH 5.470 H 03/17/24 10:36: APTT 57.3 H Radiography Diagnostic Testing: Radiology Impression Abdomen/Pelvis CTA 03/16/24 15:16 IMPRESSION: Occlusion left common and external iliac artery. Occlusion bilateral superficial femoral arteries with essentially no runoff below the knees. Prompt vascular surgery consultation recommended. N.B. : The above Results were Read Back by Harry Gibson MD to Gen Franco MD, and understanding confirmed on 03/16/2024 17:31:20 (ET). Electronically Signed: Harry Gibson MD at 17:32 EST , ADDENDUM: 03/16/24 1739 IMPRESSION: Occlusion left common and external iliac artery. Occlusion bilateral superficial femoral arteries with essentially no runoff below the knees. Prompt vascular surgery consultation recommended. N.B. : The above Results were Read Back by Harry Gibson MD to Gen Franco MD, and understanding confirmed on 03/16/2024 17:31:20 (ET). Electronically Signed: Harry Gibson MD at 17:32 EST , Physical Exam Const alert, oriented x3, no apparent distress and well nourished General Appearance: cooperative and well developed HEENT normocephalic, head/scalp atraumatic and moist oral mucous membranes Eyes PERRL and EOMs intact bilaterally Neck no lymphadenopathy and supple Lymph Lymphatic: no lymphadenopathy noted and no lymphedema noted Resp normal respiratory effort, normal air movement and clear to auscultation bilaterally Cardio regular rate, regular rhythm, S1 normal heart sound, S2 normal heart sound and no murmurs GI normal to inspection, nondistended, normoactive bowel sounds, soft to palpation, non-tender and non-distended Extremity Extremity Narrative: RLE is cold to touch, mildly erythematous, very diminished DP and PT pulses, difficult to even detect with doppler. LLE is also mildly cool to touch, but DP pulse is mildly palpable and also detectable with doppler. Neuro CN's II-XII intact bilaterally, no focal motor deficits and no sensory deficits noted Motor Exam: strength 5/5 throughout and general weakness Psych thought process normal and cooperative Appearance: appropriate Assessment & Plan Assessment/Plan (1) PAD (peripheral artery disease): PLAN: Plan #RLE pain due to peripheral artery disease * Admitted with complaint of right lower extremity pain. Has had CTA of the lower extremities with 1 of which showed bilateral occlusion of the superficial femoral arteries with essentially no runoff below the knees and occlusion of left common external iliac artery. Currently on * Heparin ip. Vascular surgery on board. * On aspirin and high intensity statin. * 2D echo ordered and pending. Lipid panel and A1c also ordered. * #Hypertensive urgency: * Resolved. Blood pressure has improved. On IV hydralazine as needed. * Will start on p.o. amlodipine and metoprolol * #Nicotine dependence: Smokes 1 pack daily. Counseled to quit especially in light of severe peripheral artery disease. Nicotine patch 21 mg daily #Elevated TSH: TSH is 5.47. Check free T4. DVT prophylaxis: Heparin drip Charges/Coding Visit Charges Inpatient E&M: 53299 Subs Hosp L3
--- NOTE | 2024-03-17 13:37 | CASEMGMT ---
RN MARTHA Assessment Face to Face with patient for initial transition planning/care coordination assessment. RN CM introduced self and role at [facility], pt voices understanding. Pt is A&Ox4 and is resting comfortably in bed and is calm. Care providers, pharmacy, and demographics verified. Admitting dx: Limb Claudication (Rt Leg) LACE Strata: 1 PCP: No PCP. Provider list given Specialists: Denies. Vascular is currently consulted Preferred Pharmacy: [facility] Insurance: [employer] Prescription Benefit: Yes LNOK: Vilma (W) Living Arrangements: Pt lives with his in a two story home with one step to enter ADLs/IADLs: Ind Transportation: Self, DME: Denies uses or needs HHC/SNF: Denies history or needs Pt?s goal: Return home with once medically ready Plan: Anticipate eventual DC home once medically ready. 6-Click is 24. Pt is on a heparin drip and CM will follow for a new blood thinning Rx. Vascular consult is pending. Per the pt RN, pt is planned for an angiogram on . At this time, the pt states that he is completely independent but does experience some pain with ambulation. Pt denies the need for HH, OP Tx, or CCN. However, PT/OT is ordered and evaluations are pending. Report given to CRM SPECIALIST CM. Pramod Ramos RN, CM
[2024-03-17] MEDS: amLODIPine 10 MG Tablet PO (14:36)
[2024-03-17] MEDS: Metoprolol Tartrate 25 MG Tablet PO (14:36)
[2024-03-17 15:17] LABS: Pathologist Review Reviewed
[2024-03-17 18:02] LABS: Partial Thromboplast Time 47.5 Seconds (24.1-36.2)
[2024-03-17] MEDS: Atorvastatin Calcium 80 MG Tablet PO (21:31)
[2024-03-18] VITALS (9 sets, daily range): BP systolic 150–172; BP diastolic 54–76; PULSE 56–66; RESP 16–18; TEMP 36.3–37; O2SAT 94–100
[2024-03-18] MEDS: oxyCODONE 5 MG Tablet PO ×3 (04:01→21:30)
--- NOTE | 2024-03-18 05:55 | EKG12_ITS ---
Test Reason : AM EKG Blood Pressure : */* mmHG Vent. Rate : 55 BPM Atrial Rate : 55 BPM P-R Int : 152 ms QRS Dur : 98 ms QT Int : 444 ms P-R-T Axes : 28 68 136 degrees QTcB Int : [address] & T wave abnormality, consider anterolateral ischemia Abnormal ECG When compared with ECG of 16-Mar-2024 14:57, MANUAL COMPARISON REQUIRED DATA IS UNCONFIRMED Confirmed by DOUG HUNTER, XIOMARA ([id number]), deputy editor in chief JAMES MENDOZA ([id number]) on 03/19/2024 5:56:18 AM Referred By: REHANA Confirmed By: XIOMARA CAMACHO MD
[2024-03-18] MEDS: Aspirin 81 MG TAB.CHEW PO (06:00)
[2024-03-18 06:26] LABS: Absolute Lymphocyte Count 2.45 X10^3/uL (0.83-4.51); Absolute Neutrophil Count 6.3 X10^3/uL (2.0-7.7); Basophil# 0.05 X10^3/uL; Basophil% 0.5 % (0-1); Eosinophil# 0.05 X10^3/uL; Eosinophils% 0.5 % (0-5); Hematocrit 49.2 % (40-54); Hemoglobin 16.4 g/dL (13.0-16.5); Lymphocyte # 2.45 X10^3/ul (0.83-4.51); Lymphocyte % 25.6 % (19-41); Mean Corp Hgb Conc 33.3 g/dL (32-36); Mean Corpuscular Hgb 31.6 pg (27.0-32.0); Mean Corpuscular Volume 94.8 fL (80-94); Mean Platelet Vol. 11.1 fl (6.2-12.0); Monocyte# 0.67 X10^3/uL; NRBC Flagged by Analyzer 0 % (0-5); Neutrophil # 6.29 X10^3/uL (2.7-7.7); Neutrophil % 65.8 % (47-70); Platelet Count 172 K/mm3 (150-450); RBC Distribution Width CV 12.9 % (11.6-14.6); RBC Distribution Width SD 45.2 fl (35.1-43.9); Red Blood Count 5.19 M/mm3 (4.6-6.2); White Blood Count 9.6 K/mm3 (4.4-11.0)
[2024-03-18 06:38] LABS: Partial Thromboplast Time 58.7 Seconds (24.1-36.2)
[2024-03-18 06:46] LABS: Anion Gap 6 (5-15); BUN 8 mg/dL (7-18); BUN/Creat Ratio 12.9 RATIO (10-20); Chloride 103 mmol/L (98-107); Creatinine, Serum 0.62 mg/dL (0.70-1.30); EST Glomerular Filtration Rate 138 mL/min (>60); Est Glom Filt Rate - Afr Amer 167 mL/min (>60); Estimated Creatinine Clearance 102.65 ml/min; Glucose 103 mg/dL (74-106); Potassium 3.9 mmol/L (3.5-5.1); Sodium Level 132 mmol/L (136-145)
[2024-03-18] MEDS: HEPARIN/D5w 25,000 UNITS 25,000 UNITS/250 ML IV.SOLN. 12 UNITS CONT INF (06:46)
--- NOTE | 2024-03-18 07:39 | CON.PCM.CA_ITS ---
Assessment & Plan Assessment/Plan (1) Abnormal echocardiogram: PLAN: He does have an abnormal echocardiogram with segmental wall motion abnormalities present. My recommendation at this time is to obtain a pharmacologic myocardial perfusion stress test and depending on the findings further recommendations will be made. He will remain on the aspirin, beta- alma and high intensity statin at this time. Addendum: The pharmacologic stress test demonstrated mild apical ischemia. On the basis of this the patient can undergo the limited peripheral testing as discussed with the vascular surgeon. However prior to the more definitive procedure later on it may be prudent for him to undergo a left heart catheterization. (2) PAD (peripheral artery disease): PLAN: He does have evidence of peripheral vascular disease and defer to the vascular surgeons regarding the above. HPI Consult Data Date of Consult: 03/18/24 HPI Narrative HPI Narrative: ZEUS OBREGON, is a 64 M who presents to the emergency room with right leg discomfort. He has not had any previous cardiac history he has not seen a industrial analyst in a while. He was noted to have peripheral vascular disease was started on heparin and was seen by the vascular surgeon. An echocardiogram was ordered was noted to have wall motion abnormalities and cardiology was consulted for further evaluation and management. He denies any neck arm or jaw discomfort suggest angina no dizziness or diaphoresis no near-syncope or syncope but has had leg discomfort. He has also had claudication. His EKG demonstrated sinus rhythm with lateral T wave inversions. * [facility] Medical History Alcohol abuse Smoker Home Medications ?Medication ?Instructions ?Recorded ?Last Taken ?Type NK 03/16/24 Unknown History Allergy/AdvReac Type Severity Reaction Status Date / Time No Known Allergies Allergy Verified 03/16/24 14:21 Social History Smoking Status: Heavy Smoker (>10/day) ROS Constitutional Constitutional: Denies fever(s) or weight loss Eyes Eyes: Reports systems reviewed and no addt'l complaints, except as documented ENT HEENT: Reports systems reviewed and no addt'l complaints, except as documented Cardiovascular Cardiovascular: Denies chest pain at rest, chest pain with activity, dyspnea at rest, dyspnea on exertion, edema, palpitations or paroxysmal nocturnal dyspnea Respiratory/Chest Respiratory/Chest: Denies dyspnea on exertion, productive cough, shortness of breath at rest or shortness of breath with exertion Gastrointestinal Gastrointestinal: Denies change in bowel habits, nausea, vomiting or weight changes Genitourinary Genitourinary: Denies difficulty urinating Musculoskeletal Musculoskeletal: Denies joint stiffness or muscle weakness Integumentary Integumentary: Denies lesions Neurologic Neurologic: Denies dizziness or syncope Psychiatric Psychiatric: Denies anxiety Endocrine Endocrinology: Denies excessive sweating or fatigue Hematologic/Lymphatic Hematologic/Lymphatic: Denies anemia Allergic/Immunologic Allergic/Immunologic: Denies seasonal rhinorrhea Physical Exam Const alert, oriented x3 and no apparent distress General Appearance: cooperative HEENT hearing grossly normal bilaterally Head and Scalp: atraumatic Eyes EOMs intact bilaterally Neck General: normal visual inspection Chest inspection of chest normal and palpation of chest normal Resp normal respiratory effort Auscultation: clear to auscultation bilaterally Cardio regular rate, regular rhythm, S1 normal heart sound and S2 normal heart sound Jugular Venous Distention: JVD GI normal to inspection, nondistended, normoactive bowel sounds Extremity normal capillary refill and no pedal edema Peripheral Pulses: Yes pulses 2+ throughout and femoral pulses present Skin no rashes or lesions noted Neuro oriented x3 and CN's II-XII intact bilaterally Psych Appearance: grossly normal and appropriate Risk Stratification Risk Stratification Applicable: No Objective Data Vital Signs: Vital Signs Temp Pulse Resp BP Pulse Ox O2 Del Method 98.6 F 56 L 16 162/55 H 97 Room Air 03/18/24 05:56 03/18/24 05:56 03/18/24 05:56 03/18/24 05:56 03/18/24 05:56 03/18/24 05:56 Oxygen Delivery Method Room Air Weight: 185 lb 10.067 oz Body Mass Index (BMI) 24.5 Intake & Output: Intake and Output for Last 24 Hours 03/16/24 03/17/24 03/18/24 23:59 23:59 23:59 Intake Total 85.6 / 85.6 170.98 / 170.98 Output Total 300 / 300 Balance 85.6 / 85.6 -129.02 / -129.02 Lab / Micro Data 03/18/24 06:07 03/18/24 06:07 Labs: Laboratory Results - last 24 hr 03/16/24 14:50: Diff Path Review Reviewed 03/17/24 04:49: Hemoglobin A1c 5.2 03/17/24 10:36: APTT 57.3 H 03/17/24 17:00: APTT 47.5 H 03/18/24 00:19: APTT 60.0 H 03/18/24 06:07: WBC 9.6, RBC 5.19, Hgb 16.4, Hct 49.2, MCV 94.8 H, MCH 31.6, MCHC 33.3, RDW Std Deviation 45.2 H, RDW Coeff of Brent 12.9, Plt Count 172, MPV 11.1, Immature Gran % (Auto) 0.600, Neut % (Auto) 65.8, Lymph % (Auto) 25.6, [place] % (Auto) 7.0, Eos % (Auto) 0.5, Baso % (Auto) 0.5, Absolute Neuts (auto) 6.3, Absolute Lymphs (auto) 2.45, Nucleated RBC % 0, APTT 58.7 H, Sodium 132 L, Potassium 3.9, Chloride 103, Carbon Dioxide 23.0, Anion Gap 6, BUN 8, Creatinine 0.62 L, Estim Creat Clear Calc 102.65, Est GFR (MDRD) Af Amer 167, Est GFR (MDRD) Non-Af 138, BUN/Creatinine Ratio 12.9, Glucose 103, Calcium 9.0 Cardiology Labs/Tests 03/17/24 04:49: Hemoglobin A1c 5.2 03/17/24 10:36: APTT 57.3 H 03/17/24 17:00: APTT 47.5 H 03/18/24 00:19: APTT 60.0 H 03/18/24 06:07: WBC 9.6, RBC 5.19, Hgb 16.4, Hct 49.2, MCV 94.8 H, MCH 31.6, MCHC 33.3, Plt Count 172, MPV 11.1, Immature Gran % (Auto) 0.600, Neut % (Auto) 65.8, Lymph % (Auto) 25.6, [place] % (Auto) 7.0, Eos % (Auto) 0.5, Baso % (Auto) 0.5, Absolute Neuts (auto) 6.3, Nucleated RBC % 0, APTT 58.7 H, Sodium 132 L, Potassium 3.9, Chloride 103, Carbon Dioxide 23.0, Anion Gap 6, BUN 8, Creatinine 0.62 L, Est GFR (MDRD) Af Amer 167, Est GFR (MDRD) Non-Af 138, BUN/Creatinine Ratio 12.9, Glucose 103, Calcium 9.0 Rhythm: EKG: ECHO: Stress Test: Cardiac Cath: PCI: CT Surgery: Holter monitor: EPS: PPM: CXR: Chest CT Scan: Radiography Diagnostic Testing: Radiology Impression Echocardiogram 03/16/24 19:56 Interpretation Summary Normal LV size. The left ventricular ejection fraction is 50 %. Mild to moderate segmental systolic dysfunction (see wall motion). Stage 1 diastolic dysfunction. The global longitudinal strain is moderately abnormal. The global longitudinal strain = -12.8% (abnormal). Ordering Physician: Nga Dunbar Performed By: Fortunato Correa, CHARLES Ankle Brachial Index 03/17/24 07:06 Interpretation Summary Right LYUDMILA 0.22, severe arterial insufficiency. Doppler/PVR waveforms of the right ankle severely diminished at rest. Left LYUDMILA 0.25, severe arterial insufficiency. Doppler/PVR waveforms of the left ankle severely diminished at rest. Ordering Physician: Sheron Oakes Performed By: Lucrecia Lara RVT and Student
[2024-03-18] MEDS: 0.9% Saline Lock 10 ML Syringe IV (12:27)
[2024-03-18] MEDS: Morphine 2 MG/ML Syringe IV (12:27)
--- NOTE | 2024-03-18 13:31 | PN_ITS ---
Subjective Subjective Patient seen and examined. He had no active complaints. He had an uneventful night. Review of systems otherwise negative. His 2D echo was abnormal so he is to have a stress test today. Objective Data Objective Data Vital Signs: Vital Signs Temp Pulse Resp BP Pulse Ox O2 Del Method 97.4 F L 62 18 169/62 H 100 Room Air 03/18/24 12:00 03/18/24 12:00 03/18/24 12:00 03/18/24 12:00 03/18/24 12:00 03/18/24 12:00 Oxygen Delivery Method Room Air Weight: 185 lb 10.067 oz Body Mass Index (BMI) 24.5 Intake & Output: Intake and Output for Last 24 Hours 03/16/24 03/17/24 03/18/24 23:59 23:59 23:59 Intake Total 85.6 / 85.6 2.49 / 2.49 530.98 / 530.98 Output Total 300 / 300 Balance 85.6 / 85.6 2.49 / 2.49 230.98 / 230.98 Lab / Micro Data 03/18/24 06:07 03/18/24 06:07 Labs: Laboratory Results - last 24 hr 03/16/24 14:50: Diff Path Review Reviewed 03/17/24 17:00: APTT 47.5 H 03/18/24 00:19: APTT 60.0 H 03/18/24 06:07: WBC 9.6, RBC 5.19, Hgb 16.4, Hct 49.2, MCV 94.8 H, MCH 31.6, MCHC 33.3, RDW Std Deviation 45.2 H, RDW Coeff of Brent 12.9, Plt Count 172, MPV 11.1, Immature Gran % (Auto) 0.600, Neut % (Auto) 65.8, Lymph % (Auto) 25.6, [place] % (Auto) 7.0, Eos % (Auto) 0.5, Baso % (Auto) 0.5, Absolute Neuts (auto) 6.3, Absolute Lymphs (auto) 2.45, Nucleated RBC % 0, APTT 58.7 H, Sodium 132 L, Potassium 3.9, Chloride 103, Carbon Dioxide 23.0, Anion Gap 6, BUN 8, Creatinine 0.62 L, Estim Creat Clear Calc 102.65, Est GFR (MDRD) Af Amer 167, Est GFR (MDRD) Non-Af 138, BUN/Creatinine Ratio 12.9, Glucose 103, Calcium 9.0 Radiography Diagnostic Testing: Radiology Impression Echocardiogram 03/16/24 19:56 Interpretation Summary Normal LV size. The left ventricular ejection fraction is 50 %. Mild to moderate segmental systolic dysfunction (see wall motion). Stage 1 diastolic dysfunction. The global longitudinal strain is moderately abnormal. The global longitudinal strain = -12.8% (abnormal). Ordering Physician: Nga Dunbar Performed By: Fortunato Correa, CHARLES Ankle Brachial Index 03/17/24 07:06 Interpretation Summary Right LYUDMILA 0.22, severe arterial insufficiency. Doppler/PVR waveforms of the right ankle severely diminished at rest. Left LYUDMILA 0.25, severe arterial insufficiency. Doppler/PVR waveforms of the left ankle severely diminished at rest. Ordering Physician: Sheron Oakes Performed By: Lucrecia Lara RVT and Student Physical Exam Const alert, oriented x3, no apparent distress and well nourished General Appearance: cooperative and well developed HEENT normocephalic, head/scalp atraumatic and moist oral mucous membranes Eyes PERRL and EOMs intact bilaterally Neck no lymphadenopathy and supple Lymph Lymphatic: no lymphadenopathy noted and no lymphedema noted Resp normal respiratory effort, normal air movement and clear to auscultation bilaterally Cardio regular rate, regular rhythm, S1 normal heart sound, S2 normal heart sound and no murmurs GI normal to inspection, nondistended, normoactive bowel sounds, soft to palpation, non-tender and non-distended Extremity Extremity Narrative: RLE is cold to touch, mildly erythematous, very diminished DP and PT pulses, difficult to even detect with doppler. LLE is also mildly cool to touch, but DP pulse is mildly palpable and also detectable with doppler. Skin Skin Narrative: as under extremities Neuro CN's II-XII intact bilaterally, no focal motor deficits and no sensory deficits noted Motor Exam: strength 5/5 throughout and general weakness Psych thought process normal and cooperative Appearance: appropriate Assessment & Plan Assessment/Plan (1) PAD (peripheral artery disease): PLAN: Plan #RLE pain due to peripheral artery disease * Admitted with complaint of right lower extremity pain. Has had CTA of the lower extremities with 1 of which showed bilateral occlusion of the superficial femoral arteries with essentially no runoff below the knees and occlusion of left common external iliac artery. Currently on * Heparin drip. Vascular surgery on board. * On aspirin and high intensity statin. * 2D echo done showed normal left ventricular size with EF of 50% and mild to moderate segmental systolic dysfunction and stage I diastolic dysfunction with hypokinesis of the left ventricle. Left atrium and right atrium were both mildly enlarged. * For stress test today on account of abnormal echo. * Lipid profile was essentially normal and A1c is 5.2. * #Hypertension * Was admitted with hypertensive urgency which is now resolved. * Was not on any blood pressure medications. Started on p.o. amlodipine 10 mg daily and p.o. metoprolol 25 mg twice daily. * IV hydralazine prn. * * #Nicotine dependence: * Smokes 1 pack daily. Counseled to quit especially in light of severe peripheral artery disease. Nicotine patch 21 mg daily #Elevated TSH: TSH is 5.47. check free T4 DVT prophylaxis: Heparin drip Charges/Coding Visit Charges Inpatient E&M: 32874 Subs Hosp L2
[2024-03-18 14:18] LABS: T4 Free Direct 0.99 ng/dL (0.76-1.46)
[2024-03-18] MEDS: hydrALAZINE 20 MG/ML Vial 10 MG IV (14:46)
[2024-03-18] MEDS: amLODIPine 10 MG Tablet PO (16:04)
[2024-03-18] MEDS: Metoprolol Tartrate 25 MG Tablet PO ×2 (16:04→21:30)
[2024-03-18] MEDS: Acetaminophen 325 MG Tablet 650 MG PO (16:05)
--- NOTE | 2024-03-18 17:12 | PCM.PN.SRG ---
Subjective Subjective Patient was seen resting in bed with family at bedside. He reports his RLE pain is stable today. He had his stress test earlier today. Objective Data Objective Data Vital Signs: Vital Signs Temp Pulse Resp BP Pulse Ox O2 Del Method 97.5 F L 66 18 150/70 H 99 Room Air 03/18/24 16:00 03/18/24 16:04 03/18/24 16:00 03/18/24 16:04 03/18/24 16:00 03/18/24 16:00 Oxygen Delivery Method Room Air Weight: 185 lb 10.067 oz Body Mass Index (BMI) 24.5 Intake & Output: Intake and Output for Last 24 Hours 03/16/24 03/17/24 03/18/24 23:59 23:59 23:59 Intake Total 85.6 / 85.6 2.49 / 2.49 530.98 / 530.98 Output Total 300 / 300 Balance 85.6 / 85.6 2.49 / 2.49 230.98 / 230.98 Lab / Micro Data 03/18/24 06:07 03/18/24 06:07 Labs: Laboratory Results - last 24 hr 03/17/24 17:00: APTT 47.5 H 03/18/24 00:19: APTT 60.0 H 03/18/24 06:07: WBC 9.6, RBC 5.19, Hgb 16.4, Hct 49.2, MCV 94.8 H, MCH 31.6, MCHC 33.3, RDW Std Deviation 45.2 H, RDW Coeff of Brent 12.9, Plt Count 172, MPV 11.1, Immature Gran % (Auto) 0.600, Neut % (Auto) 65.8, Lymph % (Auto) 25.6, [place] % (Auto) 7.0, Eos % (Auto) 0.5, Baso % (Auto) 0.5, Absolute Neuts (auto) 6.3, Absolute Lymphs (auto) 2.45, Nucleated RBC % 0, APTT 58.7 H, Sodium 132 L, Potassium 3.9, Chloride 103, Carbon Dioxide 23.0, Anion Gap 6, BUN 8, Creatinine 0.62 L, Estim Creat Clear Calc 102.65, Est GFR (MDRD) Af Amer 167, Est GFR (MDRD) Non-Af 138, BUN/Creatinine Ratio 12.9, Glucose 103, Calcium 9.0 03/18/24 06:55: Free T4 0.99 Radiography Diagnostic Testing: Radiology Impression Ankle Brachial Index 03/17/24 07:06 Interpretation Summary Right LYUDMILA 0.22, severe arterial insufficiency. Doppler/PVR waveforms of the right ankle severely diminished at rest. Left LYUDMILA 0.25, severe arterial insufficiency. Doppler/PVR waveforms of the left ankle severely diminished at rest. Ordering Physician: Sheron Oakes Performed By: Lucrecia Lara RVT and Student Physical Exam Const alert, oriented x3 and no apparent distress General Appearance: cooperative and comfortable HEENT normocephalic, head/scalp atraumatic, hearing grossly normal bilaterally, external ears normal and external nose normal Eyes EOMs intact bilaterally General Eye: normal appearance of both eyes Neck General: normal visual inspection and trachea midline Resp normal respiratory effort, no retractions and no use of accessory muscles Effort and Inspection: able to speak in complete sentences Cardio Rate: regular rate Rhythm: regular rhythm Extremity Extremity Narrative: Pedal pulses nonpalpable. R and L PT monophasic, unable to find DP pulses with doppler. R foot with rubor, hemosiderin deposition; Motor and sensory intact. L foot without notable discoloration/pallor Skin no rashes or lesions noted Wounds: Negative for wounds noted Neuro oriented x3, CN's II-XII intact bilaterally, moves all extremities, no focal motor deficits and no sensory deficits noted Speech: speech normal Psych mental status grossly normal, cooperative, affect normal, speech normal and activity/motor behavior normal Assessment & Plan Assessment/Plan (1) Atherosclerosis of right lower extremity with rest pain: PLAN: Plan Stress test results are pending. NPO after midnight. Still planning for angiogram with likely R iliac intervention tomorrow afternoon unless stress test indicates need for cardiac intervention which would take precedence. Charges/Coding Multi Select Codes Visit Charges Visit Charges: 65280 Subs Hosp L1
--- NOTE | 2024-03-18 17:29 | STRESSREP ---
Stress Test Report Pharmacologic myocardial perfusion stress test. 64-year-old man with a history of peripheral vascular disease Resting EKG demonstrates sinus bradycardia with lateral T wave inversions with a rate of 54 bpm. Resting blood pressure is 144/70 mmHg. 0.4 mg of regadenoson was infused per usual protocol followed by rapid intravenous saline flush injection. Continuous EKG monitoring was performed. The maximum heart rate was 82 bpm which was 53% of max impacted heart rate the maximum workload was 1 metabolic equivalent. At rest there were no ST or T wave changes noted to suggest ischemia and at peak infusion nonspecific ST changes were noted which did not meet the criteria for ischemia. No clinical angina is noted. The final blood pressure was 150/70 mmHg. Myocardial perfusion protocol. 11.9 mCi of technetium 99m sestamibi was injected at rest. 0.4 mg of regadenoson was infused per usual protocol. At peak infusion 34.8 mCi of technetium 99m sestamibi was injected stress images were obtained stress and rest images were reconstructed and compared in the short axis vertical long and horizontal long axis. Gated images were also obtained. Perfusion SPECT analysis: Review of the stress images demonstrate normal uptake of tracer noted in all areas of the myocardium. There is a small portion of the apex with mildly reduced perfusion and a small amount of apical ischemia cannot be completely excluded. Improvement is noted on the resting images. Gated SPECT analysis: The gated ejection fraction is 50%. Conclusion: Mildly abnormal pharmacologic myocardial perfusion stress test with apical ischemia. Low normal ejection fraction.
[2024-03-18] MEDS: Atorvastatin Calcium 80 MG Tablet PO (21:30)
[2024-03-19] VITALS (15 sets, daily range): BP systolic 138–169; BP diastolic 50–131; PULSE 53–77; RESP 18; TEMP 36.1–36.7; O2SAT 93–100
[2024-03-19] MEDS: Acetaminophen 325 MG Tablet 650 MG PO (01:11)
[2024-03-19] MEDS: HEPARIN/D5w 25,000 UNITS 25,000 UNITS/250 ML IV.SOLN. 12 UNITS CONT INF (02:53)
[2024-03-19] MEDS: oxyCODONE 5 MG Tablet PO ×3 (02:56→21:11)
[2024-03-19 05:57] LABS: Absolute Lymphocyte Count 2.46 X10^3/uL (0.83-4.51); Absolute Neutrophil Count 5.9 X10^3/uL (2.0-7.7); Basophil# 0.04 X10^3/uL; Basophil% 0.4 % (0-1); Eosinophil# 0.04 X10^3/uL; Eosinophils% 0.4 % (0-5); Hematocrit 49.5 % (40-54); Hemoglobin 16.7 g/dL (13.0-16.5); Lymphocyte # 2.46 X10^3/ul (0.83-4.51); Lymphocyte % 26.7 % (19-41); Mean Corp Hgb Conc 33.7 g/dL (32-36); Mean Corpuscular Hgb 32.2 pg (27.0-32.0); Mean Corpuscular Volume 95.4 fL (80-94); Mean Platelet Vol. 11.1 fl (6.2-12.0); Monocyte# 0.75 X10^3/uL; Monocyte% 8.2 % (0-10); NRBC Flagged by Analyzer 0 % (0-5); Neutrophil # 5.88 X10^3/uL (2.7-7.7); Platelet Count 170 K/mm3 (150-450); RBC Distribution Width CV 12.9 % (11.6-14.6); RBC Distribution Width SD 45.6 fl (35.1-43.9); Red Blood Count 5.19 M/mm3 (4.6-6.2); White Blood Count 9.2 K/mm3 (4.4-11.0)
[2024-03-19 06:09] LABS: Partial Thromboplast Time 67.5 Seconds (24.1-36.2)
[2024-03-19] MEDS: Aspirin 81 MG TAB.CHEW PO (06:34)
[2024-03-19] MEDS: amLODIPine 10 MG Tablet PO (06:34)
[2024-03-19 06:38] LABS: Anion Gap 5 (5-15); BUN 6 mg/dL (7-18); BUN/Creat Ratio 8.9 RATIO (10-20); Chloride 103 mmol/L (98-107); Creatinine, Serum 0.68 mg/dL (0.70-1.30); EST Glomerular Filtration Rate 125 mL/min (>60); Est Glom Filt Rate - Afr Amer 151 mL/min (>60); Estimated Creatinine Clearance 102.65 ml/min; Glucose 100 mg/dL (74-106); Potassium 4.1 mmol/L (3.5-5.1); Sodium Level 134 mmol/L (136-145)
--- NOTE | 2024-03-19 07:59 | PCM.PN.CARD ---
Objective Data Vital Signs: Vital Signs Temp Pulse Resp BP Pulse Ox O2 Del Method 97.3 F L 55 L 18 151/50 H 93 Room Air 03/19/24 06:28 03/19/24 06:28 03/19/24 06:28 03/19/24 06:28 03/19/24 06:28 03/19/24 06:28 Oxygen Delivery Method Room Air Weight: 185 lb 10.067 oz Body Mass Index (BMI) 24.5 Intake & Output: Intake and Output for Last 24 Hours 03/17/24 03/18/24 03/19/24 23:59 23:59 23:59 Intake Total 2.49 / 2.49 770.98 / 770.98 275.8 / 275.8 Output Total 300 / 300 Balance 2.49 / 2.49 470.98 / 470.98 275.8 / 275.8 Lab / Micro Data 03/19/24 05:45 03/19/24 05:45 Labs: Laboratory Results - last 24 hr 03/18/24 06:55: Free T4 0.99 03/19/24 05:45: WBC 9.2, RBC 5.19, Hgb 16.7 H, Hct 49.5, MCV 95.4 H, MCH 32.2 H, MCHC 33.7, RDW Std Deviation 45.6 H, RDW Coeff of Brent 12.9, Plt Count 170, MPV 11.1, Immature Gran % (Auto) 0.300, Neut % (Auto) 64.0, Lymph % (Auto) 26.7, [place] % (Auto) 8.2, Eos % (Auto) 0.4, Baso % (Auto) 0.4, Absolute Neuts (auto) 5.9, Absolute Lymphs (auto) 2.46, Nucleated RBC % 0, APTT 67.5 H, Sodium 134 L, Potassium 4.1, Chloride 103, Carbon Dioxide 26.0, Anion Gap 5, BUN 6 L, Creatinine 0.68 L, Estim Creat Clear Calc 102.65, Est GFR (MDRD) Af Amer 151, Est GFR (MDRD) Non-Af 125, BUN/Creatinine Ratio 8.9 L, Glucose 100, Calcium 9.0 Cardiology Labs/Tests 03/19/24 05:45: WBC 9.2, RBC 5.19, Hgb 16.7 H, Hct 49.5, MCV 95.4 H, MCH 32.2 H, MCHC 33.7, Plt Count 170, MPV 11.1, Immature Gran % (Auto) 0.300, Neut % (Auto) 64.0, Lymph % (Auto) 26.7, [place] % (Auto) 8.2, Eos % (Auto) 0.4, Baso % (Auto) 0.4, Absolute Neuts (auto) 5.9, Nucleated RBC % 0, APTT 67.5 H, Sodium 134 L, Potassium 4.1, Chloride 103, Carbon Dioxide 26.0, Anion Gap 5, BUN 6 L, Creatinine 0.68 L, Est GFR (MDRD) Af Amer 151, Est GFR (MDRD) Non-Af 125, BUN/Creatinine Ratio 8.9 L, Glucose 100, Calcium 9.0 Rhythm: EKG: ECHO: Stress Test: Cardiac Cath: PCI: CT Surgery: Holter monitor: EPS: PPM: CXR: Chest CT Scan: Physical Exam Const alert, oriented x3 and no apparent distress General Appearance: cooperative HEENT hearing grossly normal bilaterally Head and Scalp: atraumatic Eyes EOMs intact bilaterally Neck General: normal visual inspection Chest inspection of chest normal and palpation of chest normal Resp normal respiratory effort Auscultation: clear to auscultation bilaterally Cardio regular rate, regular rhythm, S1 normal heart sound and S2 normal heart sound Jugular Venous Distention: JVD GI normal to inspection, nondistended, normoactive bowel sounds Extremity normal capillary refill and no pedal edema Peripheral Pulses: Yes pulses 2+ throughout and femoral pulses present Skin no rashes or lesions noted Neuro oriented x3 and CN's II-XII intact bilaterally Psych Appearance: grossly normal and appropriate Assessment & Plan Assessment/Plan (1) Abnormal echocardiogram: PLAN: He does have an abnormal echocardiogram with segmental wall motion abnormalities present. My recommendation at this time is to obtain a pharmacologic myocardial perfusion stress test and depending on the findings further recommendations will be made. He will remain on the aspirin, beta-alma and high intensity statin at this time. Addendum: The pharmacologic stress test demonstrated mild apical ischemia. On the basis of this the patient can undergo the limited peripheral testing as discussed with the vascular surgeon. However prior to the more definitive procedure later on it may be prudent for him to undergo a left heart catheterization. Above has been discussed with the vascular surgeon and the PA. (2) PAD (peripheral artery disease): PLAN: He does have evidence of peripheral vascular disease and defer to the vascular surgeons regarding the above.
[2024-03-19] MEDS: hydrALAZINE 20 MG/ML Vial 10 MG IV (09:04)
[2024-03-19] MEDS: 0.9% Saline Lock 10 ML Syringe IV (09:04)
[2024-03-19 15:18] LABS: ACT Activated Clotting Time 233 sec (74-137)
--- NOTE | 2024-03-19 15:25 | PN_ITS ---
Subjective Subjective Patient seen and examined. He had no active complaints. He had the stress test yesterday which was abnormal. He is for angiogram today. Review of systems is otherwise negative. Objective Data Objective Data Vital Signs: Vital Signs Temp Pulse Resp BP Pulse Ox O2 Del Method 97.4 F L 53 L 18 169/70 H 96 Room Air 03/19/24 09:00 03/19/24 09:04 03/19/24 09:00 03/19/24 09:04 03/19/24 09:00 03/19/24 09:00 Oxygen Delivery Method Room Air Weight: 185 lb 10.067 oz Body Mass Index (BMI) 24.5 Intake & Output: Intake and Output for Last 24 Hours 03/17/24 03/18/24 03/19/24 23:59 23:59 23:59 Intake Total 1962.49 / 1962.49 770.98 / 770.98 275.8 / 275.8 Output Total 300 / 300 Balance 1962.49 / 1962.49 470.98 / 470.98 275.8 / 275.8 Lab / Micro Data 03/19/24 05:45 03/19/24 05:45 Labs: Laboratory Results - last 24 hr 03/19/24 05:45: WBC 9.2, RBC 5.19, Hgb 16.7 H, Hct 49.5, MCV 95.4 H, MCH 32.2 H, MCHC 33.7, RDW Std Deviation 45.6 H, RDW Coeff of Brent 12.9, Plt Count 170, MPV 11.1, Immature Gran % (Auto) 0.300, Neut % (Auto) 64.0, Lymph % (Auto) 26.7, [place] % (Auto) 8.2, Eos % (Auto) 0.4, Baso % (Auto) 0.4, Absolute Neuts (auto) 5.9, Absolute Lymphs (auto) 2.46, Nucleated RBC % 0, APTT 67.5 H, Sodium 134 L, Potassium 4.1, Chloride 103, Carbon Dioxide 26.0, Anion Gap 5, BUN 6 L, C reatinine 0.68 L, Estim Creat Clear Calc 102.65, Est GFR (MDRD) Af Amer 151, Est GFR (MDRD) Non-Af 125, BUN/Creatinine Ratio 8.9 L, Glucose 100, Calcium 9.0 12/19/24 13:55: Activated Clotting Time 233 H Physical Exam Const alert, oriented x3, no apparent distress and well nourished General Appearance: cooperative and well developed HEENT normocephalic, head/scalp atraumatic and moist oral mucous membranes Eyes PERRL and EOMs intact bilaterally Neck no lymphadenopathy and supple Lymph Lymphatic: no lymphadenopathy noted and no lymphedema noted Resp normal respiratory effort, normal air movement and clear to auscultation bilaterally Cardio regular rate, regular rhythm, S1 normal heart sound, S2 normal heart sound and no murmurs GI normal to inspection, nondistended, normoactive bowel sounds, soft to palpation, non-tender and non-distended Extremity Extremity Narrative: RLE is cold to touch, mildly erythematous, very diminished DP and PT pulses, difficult to even detect with doppler. LLE is also mildly cool to touch, but DP pulse is mildly palpable and also detectable with doppler. Skin Skin Narrative: as under extremities Neuro CN's II-XII intact bilaterally, no focal motor deficits and no sensory deficits noted Motor Exam: strength 5/5 throughout and general weakness Psych thought process normal and cooperative Appearance: appropriate Assessment & Plan Assessment/Plan (1) PAD (peripheral artery disease): PLAN: Plan #RLE pain due to peripheral artery disease * Admitted with complaint of right lower extremity pain. Has had CTA of the lower extremities with 1 of which showed bilateral occlusion of the superficial femoral arteries with essentially no runoff below the knees and occlusion of left common external iliac artery. Currently on * Heparin drip. Vascular surgery on board. * On aspirin and high intensity statin. * 2D echo done showed normal left ventricular size with EF of 50% and mild to moderate segmental systolic dysfunction and stage I diastolic dysfunction with hypokinesis of the left ventricle. Left atrium and right atrium were both mildly enlarged. * For stress test today on account of abnormal echo. * Lipid profile was essentially normal and A1c is 5.2. * for angiogram today * #Abnormal echo * 2D echo as above. He did have stress test which Was mildly abnormal with apical ischemia and low normal ejection fraction of 50% * per cardiology, to have outpatient cardiac cath. * #Hypertension * Was admitted with hypertensive urgency which is now resolved. * Was not on any blood pressure medications. Started on p.o. amlodipine 10 mg daily and p.o. metoprolol 25 mg twice daily. * IV hydralazine prn. * * #Nicotine dependence: * Smokes 1 pack daily. Counseled to quit especially in light of severe peripheral artery disease. Nicotine patch 21 mg daily #Elevated TSH: TSH is 5.47. check free T4 DVT prophylaxis: Heparin drip Charges/Coding Visit Charges Inpatient E&M: 67417 Subs Hosp L2
[2024-03-19] MEDS: Clopidogrel Bisulfate 300 MG Tablet PO (16:37)
--- NOTE | 2024-03-19 17:24 | ART_ITS ---
Reason For Study: S/P Rt Iliac Stent Procedure A bilateral lower extremity continuous wave Doppler with analog waveform analysis and ankle brachial indexes. Left Segmental Pressures Left posterior tibial artery = 23mmHg. Unable to acquire Lt DP and Lt Digit. The left posterior tibial artery waveforms are monophasic. The left dorsalis pedis waveforms are absent. Right Segmental Pressures Right brachial= 163mmHg. Right posterior tibial artery = 44mmHg. Right dorsalis pedis artery = 39mmHg. The right posterior tibial artery waveforms are monophasic. The right dorsalis pedis waveforms are monophasic. Indices The right ankle brachial index by the posterior tibial artery is 0.27. The right ankle brachial index by the dorsalis pedis is 0.24. The left ankle brachial index by the posterior tibial artery is 0.23. VL/Ankle Brachial Index Interpretation Summary Right LYUDMILA 0.27, severe arterial insufficiency. Doppler/PVR waveforms of the rig ht ankle severely diminished at rest. Left LYUDMILA 0.14, critical arterial insufficiency. Doppler/PVR waveforms of the le ft ankle critically diminished at rest. Ordering Physician: Sheron Oakes Referring Physician: N/A Performed By: Porfirio Reinoso RVT
--- NOTE | 2024-03-19 18:01 | PCM.OPRPT ---
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 He has had fairly minimal medical care and no known diagnosis of peripheral vascular disease. CT scan revealed significant aortoiliac occlusive disease with near occlusion or total occlusion of the right external iliac artery, total occlusion of left common and external iliac arteries as well as scattered areas of tandem occlusions and patent segments of the SFA popliteal. There is limited evaluation of the distal popliteal and infrapopliteal vessels due to poor contrast transit so there is very little these vessels patency status. He presents now for angiogram with the bilateral extremities for further assessment of the outflow vessels as well as for possible intervention of the right iliac artery lesion and to relieve his rest pain. Given the lesion proximity to the femoral access site a left radial access is felt to be most likely to succeed. Description of procedure: Upon obtaining form consent and verification verification procedure site patient was taken to the catheter is positioned prepped and draped in usual sterile fashion. Time was performed with 5 sedation ministered Versed and fentanyl. The left radial artery was accessed the wire and exchanged for a slender sheath. Through this nitroglycerin, verapamil, and heparin was infused. Bentson wire and pigtail catheter then advanced through the upper extremity and into the aortic arch. These were then used to navigate into the descending thoracic aorta ultimately venting the wire and catheter into the pararenal segment. From this position digital traction aortogram pelvic intermittent performed. This revealed greater than 90% stenosis of the right external iliac artery with total occlusion of the internal iliac artery. This confirmed total occlusion of the left common and external iliac arteries and actually did not reveal any opacification of left common femoral artery. From this position sequential subtraction angiography of the bilateral extremities was performed via injection in the abdominal aorta which revealed right superficial femoral artery occluded proximally with mid vessel reconstitution and then reocclusion with very limited visualization of any vessels below the popliteal artery. Likewise the left superficial femoral artery was occluded at its origin and did not reconstitute until the popliteal artery which was a very diseased and calcified segment. There was very poor visualization of the distal popliteal artery and tibial vessels. It was felt that the right external iliac lesion was amenable to endovascular treatment which may relieve his rest pain. The patient was then given additional heparin and Bentson wire readvanced into the visceral segment of the aorta. The pigtail catheter then withdrawn and the short 6 [place] sheath exchanged for a 90 cm 6 [place] Halo sheath advanced into the distal segment of the aorta. From this position using a command 18 wire and angled quick cross catheter we are to navigate into the right iliac system and traverse the area of stenosis. Wire and catheter then advanced into the common femoral artery and the wire withdrawn. Injection subtraction angiography was performed which revealed the presence within true lumen with no extravasation or dissection. The wire was then readvanced and the catheter withdrawn. Intravascular ultrasound probe was then advanced and recorded pullback performed of the right common femoral artery, right external aorta, right common iliac artery and aorta. This confirmed presence within true lumen with sizing of the reference vessels adjacent to the lesion. This revealed that the adjacent vessels were approximately 8 mm in diameter which was larger than the intended vessel use for our largest paclitaxel coated stent. We felt to that angioplasty with drug-coated angioplasty balloon and bare-metal stent would be appropriate however these devices did not have added with working length to reach the lesion from the radial artery. A 7 mm x 40 em angioplasty balloon was then advanced over the wire and centered on the lesion. This was then inflated for multiple inflations across the length of the lesion and then deflated withdrawn. Next skin overlying the right common femoral artery was anesthetized and the vessel accessed under ultrasound guidance with a micropuncture needle wire. This then exchanged for micropuncture sheath routine injection iliofemoral angiogram was performed revealing satisfactory positioning no extravasation or dissection. Through the micropuncture sheath Bentson wires advanced the micropuncture sheath exchanged for a 7 [place] sheath which was positioned inferior to the iliac lesion. Catheter then advanced and the Bentson wire exchanged for an 018 wire and intravascular ultrasound probe advanced and recorded pullback performed of the common and external further confirming presence within true lumen of our femoral access sheath. Next a text with foot angioplasty 0.8 mm x 80 was advanced to the lesion inflated to nominal for 3 minutes and deflated withdrawn. An 8 mm x 80 ever flex stent was then advanced in the position and deployed this was then postdilated with a millimeter angioplasty balloon completion angiography revealed satisfactory response with no extravasation or dissection no residual stenosis. Additional imaging the right lower extremity was performed the we had improved inflow and this revealed reconstitution of the posterior tib and anterior tibial arteries in the proximal calf with continuous runoff to the foot. The right femoral sheath and exchanged for a short 7 [place] sheath and Mynx closure device deployed all activities of manual pressure with satisfactory stasis noted. Radial she was then withdrawn radial band placed and the patient taken to the PCU for bedrest and recovery. Surgical Findings: See above Complications Complications: No
[2024-03-19] MEDS: Metoprolol Tartrate 25 MG Tablet PO (21:11)
[2024-03-19] MEDS: Atorvastatin Calcium 80 MG Tablet PO (21:11)
[2024-03-20] MEDS: Acetaminophen 325 MG Tablet 650 MG PO (02:07)
[2024-03-20] MEDS: 0.9% Saline Lock 10 ML Syringe IV (02:08)
[2024-03-20 02:10] VITALS: BP 141/48; PULSE 58; RESP 18; TEMP 36.1; O2SAT 98
[2024-03-20] MEDS: oxyCODONE 5 MG Tablet PO (06:22)
[2024-03-20 06:24] VITALS: BP 161/89; PULSE 58; RESP 18; TEMP 36.4; O2SAT 98
[2024-03-20 06:30] VITALS: BP 146/61; PULSE 58
[2024-03-20 08:22] VITALS: BP 161/68; PULSE 55; RESP 11; TEMP 36.3; O2SAT 98
[2024-03-20] MEDS: amLODIPine 10 MG Tablet PO (08:24)
[2024-03-20 08:25] VITALS: PULSE 55
[2024-03-20] MEDS: Aspirin 81 MG TAB.CHEW PO (08:25)
[2024-03-20] MEDS: Metoprolol Tartrate 25 MG Tablet PO (08:25)
[2024-03-20] MEDS: Clopidogrel Bisulfate 75 MG Tablet PO (08:25)
[2024-03-20 08:52] LABS: Absolute Lymphocyte Count 1.87 X10^3/uL (0.83-4.51); Absolute Neutrophil Count 6.8 X10^3/uL (2.0-7.7); Basophil# 0.03 X10^3/uL; Basophil% 0.3 % (0-1); Eosinophil# 0.06 X10^3/uL; Eosinophils% 0.6 % (0-5); Hematocrit 46.7 % (40-54); Hemoglobin 16.3 g/dL (13.0-16.5); Lymphocyte # 1.87 X10^3/ul (0.83-4.51); Lymphocyte % 19.4 % (19-41); Mean Corp Hgb Conc 34.9 g/dL (32-36); Mean Corpuscular Hgb 32.9 pg (27.0-32.0); Mean Corpuscular Volume 94.2 fL (80-94); Mean Platelet Vol. 11.8 fl (6.2-12.0); Monocyte# 0.85 X10^3/uL; Monocyte% 8.8 % (0-10); NRBC Flagged by Analyzer 0 % (0-5); Neutrophil # 6.79 X10^3/uL (2.7-7.7); Neutrophil % 70.4 % (47-70); Platelet Count 170 K/mm3 (150-450); RBC Distribution Width CV 12.9 % (11.6-14.6); RBC Distribution Width SD 44.7 fl (35.1-43.9); Red Blood Count 4.96 M/mm3 (4.6-6.2); White Blood Count 9.7 K/mm3 (4.4-11.0)
[2024-03-20 09:09] LABS: Partial Thromboplast Time 31.1 Seconds (24.1-36.2)
[2024-03-20 09:22] LABS: Anion Gap 8 (5-15); BUN 7 mg/dL (7-18); BUN/Creat Ratio 10.9 RATIO (10-20); Calcium,Total 8.9 mg/dL (8.5-10.1); Chloride 102 mmol/L (98-107); Creatinine, Serum 0.64 mg/dL (0.70-1.30); EST Glomerular Filtration Rate 133 mL/min (>60); Est Glom Filt Rate - Afr Amer 160 mL/min (>60); Estimated Creatinine Clearance 102.65 ml/min; Glucose 80 mg/dL (74-106); Sodium Level 132 mmol/L (136-145)
--- NOTE | 2024-03-20 13:50 | PCM.PN.SRG ---
Subjective Subjective Patient was seen resting in bed this morning and again up to the chair this afternoon. This morning he relayed that his foot seemed to be feeling better though it was still quite early in the day. He had no bleeding or hematoma formation at the radial or femoral access sites. This afternoon, he reported that his R foot pain remained improved. In the sitting position, noted that his L foot appeared more cyanotic but he denied any L foot pain, but he had been sitting a while and the coloring improved with elevation. Objective Data Objective Data Vital Signs: Vital Signs Temp Pulse Resp BP Pulse Ox O2 Del Method 97.4 F L 55 L 11 L 161/68 H 98 Room Air 03/20/24 08:22 03/20/24 08:25 03/20/24 08:22 03/20/24 08:22 03/20/24 08:22 03/20/24 10:00 Oxygen Delivery Method Room Air Weight: 185 lb 10.067 oz Body Mass Index (BMI) 24.5 Intake & Output: Intake and Output for Last 24 Hours 03/18/24 03/19/24 03/20/24 23:59 23:59 23:59 Intake Total 770.98 / 770.98 764.8 / 764.8 120 / 120 Output Total 300 / 300 Balance 470.98 / 470.98 764.8 / 764.8 120 / 120 Lab / Micro Data 03/20/24 08:20 03/20/24 08:20 Labs: Laboratory Results - last 24 hr 03/19/24 13:55: Activated Clotting Time 233 H 03/20/24 08:20: WBC 9.7, RBC 4.96, Hgb 16.3, Hct 46.7, MCV 94.2 H, MCH 32.9 H, MCHC 34.9, RDW Std Deviation 44.7 H, RDW Coeff of Brent 12.9, Plt Count 170, MPV 11.8, Immature Gran % (Auto) 0.500, Neut % (Auto) 70.4 H, Lymph % (Auto) 19.4, [place] % (Auto) 8.8, Eos % (Auto) 0.6, Baso % (Auto) 0.3, Absolute Neuts (auto) 6.8, Absolute Lymphs (auto) 1.87, Nucleated RBC % 0, APTT 31.1, Sodium 132 L, Potassium 4.0, Chloride 102, Carbon Dioxide 22.0, Anion Gap 8, BUN 7, Creatinine 0.64 L, Estim Creat Clear Calc 102.65, Est GFR (MDRD) Af Amer 160, Est GFR (MDRD) Non-Af 133, BUN/Creatinine Ratio 10.9, Glucose 80, Calcium 8.9 Physical Exam Const alert, oriented x3 and no apparent distress General Appearance: cooperative and comfortable HEENT normocephalic, head/scalp atraumatic, hearing grossly normal bilaterally, external ears normal and external nose normal Eyes EOMs intact bilaterally General Eye: normal appearance of both eyes Neck General: normal visual inspection and trachea midline Resp normal respiratory effort, no retractions and no use of accessory muscles Effort and Inspection: able to speak in complete sentences Cardio Cardio Narrative: L radial access site with dry dressing in place, no bleed through, no hematoma, soft and nontender to palpation Rate: regular rate Rhythm: regular rhythm Extremity Extremity Narrative: Pedal pulses nonpalpable. Now able to find R DP doppler signal, monophasic. R PT doppler signal still monophasic but sounds stronger than prior to procedure. R foot still with rubor, appropriately warm, motor and sensory intact L PT monophasic, unable to find L DP signal; L foot appropriately warm, motor and sensory intact R groin access site with dry dressing in place, no bleed through. No hematoma, soft and nontender to palpation. Skin no rashes or lesions noted Wounds: Negative for wounds noted Neuro oriented x3, CN's II-XII intact bilaterally, moves all extremities, no focal motor deficits and no sensory deficits noted Speech: speech normal Psych mental status grossly normal, cooperative, affect normal, speech normal and activity/motor behavior normal Assessment & Plan Assessment/Plan (1) Atherosclerosis of right lower extremity with rest pain: PLAN: Plan He is s/p angioplasty/stent R EIA. Repeat ABIs did not show significant improvement; however, this is not unexpected as he still has significant distal disease through his femoral and tibial vessels. On exam, doppler signals are improved and he is symptomatically improved. Continue with ASA, Plavix, and high-intensity statin. OK for discharge from vascular standpoint, will plan for close outpatient follow-up, our office will contact him to schedule. Close outpatient follow-up is also planned with cardiology. Will plan for AAA screening and carotid duplex on an outpatient basis as well. Charges/Coding Visit Charges Inpatient E&M: 16058 Subs Hosp L1
[2024-03-20 14:24] VITALS: BP 144/59; PULSE 64; RESP 16; TEMP 36.1; O2SAT 96
--- NOTE | 2024-03-20 16:03 | DCINST_ITS ---
Discharge Instructions Diet Discharge Diet: Low fat / Low cholesterol DC O2, CPAP, BIPAP needs Home O2 Discharge instructions: No Dressing / Incision Discharge Activity: Return to Normal Activity Weight Bearing Status: Weight bearing as tolerated Dressing / Incision Call your doctor if you observe: Fever of 101 or Higher, Shortness of breath, Dizziness, Swelling in the ankles, Chest pain and Uncontrolled pain Follow Up Care Test Results: Test results from this visit will be discussed in further detail at your follow- up appointment, if applicable. Discharge Plan Admission Admit Date/Time: 03/16/24 19:21 Primary Reason for Your Visit: peripheral artery disease Attending Provider: Hyacinth Boone Primary Care Provider: Care Physician,No Primary Consulting Providers: Robert Peter; Nga Dunbar; Manfred Washington; Maykel Cutler; Adin Graham; Abel Noyola; Rebeka Loya; Anish Ahumada; Pascual Wilson; Sumit Cadet; Mark Simmons; Gurvinder Mueller NP; Jazmin Guevara PA; Bashir Polk Instructions Patient Instructions: PAD, ED Peripheral Artery Disease (PAD) Discharge Orders/Prescriptions Prescriptions: New amlodipine 10 mg Tablet 10 mg PO DAILY Qty: 30 2RF aspirin 81 mg Tablet,Chewable 81 mg PO BREAKFAST Qty: 30 2RF atorvastatin 80 mg Tablet 80 mg PO QHS Qty: 30 2RF clopidogrel 75 mg Tablet 75 mg PO DAILY Qty: 30 2RF metoprolol tartrate 25 mg Tablet 25 mg PO BID Qty: 60 2RF Referrals / Follow Up: Abel Noyola MD [Med Staff - Active Staff] - Within 2 Weeks Robert Peter MD [Med Staff - Active Staff] - Within 2 Weeks Care Physician,No Primary [Primary Care Provider] - Within 1 Week Disposition Disposition (needs filled in before D/C Order can be placed): Home, Self Care
--- NOTE | 2024-03-20 16:04 | DS.PCM_ITS ---
Providers Date of Admission: 03/16/24 Date of Discharge: 03/20/24 Primary Care Physician: Lisa Primary Care Phys Consultations 03/16/24 19:56 Consult: Vascular Surgery Routine Consulting Provider: Robert Peter Reason for Consult: significant PAD seen on CT EMERGENT Consult: No MD Notified: Yes Date Notified: 03/16/24 Time Notified: 19:40 Method of Notification: ED Physician Initiated 03/17/24 18:21 Consult: Cardiology Routine Consulting Provider: Shirley Webster Reason for Consult: Abnormal echo EMERGENT Consult: No MD Notified: Yes Date Notified: 03/17/24 Time Notified: 18:38 Method of Notification: Text Reason For Visit: LIMB CLAUDICATION Diagnosis Discharge Diagnosis (1) PAD (peripheral artery disease): Status: Acute Code(s): I73.9 - Peripheral vascular disease, unspecified Plan #RLE pain due to peripheral artery disease * Admitted with complaint of right lower extremity pain. Has had CTA of the lower extremities with 1 of which showed bilateral occlusion of the superficial femoral arteries with essentially no runoff below the knees and occlusion of left common external iliac artery. Currently on * Heparin drip. Vascular surgery on board. * On aspirin and high intensity statin. * 2D echo done showed normal left ventricular size with EF of 50% and mild to moderate segmental systolic dysfunction and stage I diastolic dysfunction with hypokinesis of the left ventricle. Left atrium and right atrium were both mildly enlarged. * For stress test today on account of abnormal echo. * Lipid profile was essentially normal and A1c is 5.2. * for angiogram today * #Abnormal echo * 2D echo as above. He did have stress test which Was mildly abnormal with apical ischemia and low normal ejection fraction of 50% * per cardiology, to have outpatient cardiac cath. * #Hypertension * Was admitted with hypertensive urgency which is now resolved. * Was not on any blood pressure medications. Started on p.o. amlodipine 10 mg daily and p.o. metoprolol 25 mg twice daily. * IV hydralazine prn. * * #Nicotine dependence: * Smokes 1 pack daily. Counseled to quit especially in light of severe peripheral artery disease. Nicotine patch 21 mg daily #Elevated TSH: TSH is 5.47. check free T4 DVT prophylaxis: Heparin drip Medications at Discharge Home Medications amlodipine 10 mg tablet 10 mg PO DAILY #30 tabs 03/20/24 aspirin 81 mg chewable tablet 81 mg PO BREAKFAST #30 tabs 03/20/24 atorvastatin 80 mg tablet 80 mg PO QHS #30 tabs 03/20/24 clopidogrel 75 mg tablet 75 mg PO DAILY #30 tabs 03/20/24 metoprolol tartrate 25 mg tablet 25 mg PO BID #60 tabs 03/20/24 Hospital Course Operations None Procedures 2-D Echocardiogram, Angiogram and Nuclear stress test Summary of Care Provided Minutes Spent on Discharge: 45 Hospital Course: Patient is a 64-year-old male with a PMH as outlined who was admitted with a complaint of right foot pain and redness. He had been having claudication symptoms in his right leg for about a month went to the urgent care on the day of admission with these concerns. He was sent to the ED due to concerns about reduced blood flow to his foot. On admission he had diminished pulses to the right foot. Vascular surgery was consulted. He was started on heparin drip. CTA with runoff showed occlusion of both the left common and external iliac arteries and occlusion of the bilateral superficial femoral arteries with no runoff below the knees. He was also placed on high intensity statin and aspirin. He did have a 2D echo done which showed normal left ventricular size with EF of 50% and mild to moderate segmental systolic dysfunction and stage I diastolic dysfunction with hypokinesis of the left ventricle. His blood pressure was markedly elevated on admission. He was started on p.o. amlodipine and p.o. metoprolol. He was counseled to quit smoking in light of the severe peripheral artery disease. Due to the abnormal echo he had a stress test which showed apical ischemia and low EF of 50%. Cardiology recommended that patient follow-up on outpatient basis to schedule cardiac cath. He had a peripheral angiogram by vascular surgery on 03/19/2024 which showed atherosclerosis of the right lower extremity and he had a stent inserted in the RLE. HE remained stable and was discharged home on 03/19/2024 and is to follow up with his PCP, vascular surgery and cardiology within 1-2 weeks. Patient seen and examined prior to discharge. He had no complaints and felt much better. Review of systems otherwise negative. Labs and vitals reviewed. Medication reviewed and reconciled. Physical Exam Const alert, oriented x3, no apparent distress and well nourished General Appearance: cooperative, comfortable and well developed HEENT normocephalic, head/scalp atraumatic, hearing grossly normal bilaterally and moist oral mucous membranes Eyes PERRL and EOMs intact bilaterally Neck no lymphadenopathy and supple Lymph Lymphatic: no lymphadenopathy noted and no lymphedema noted Resp normal respiratory effort, normal air movement and clear to auscultation bilaterally Cardio regular rate, regular rhythm, S1 normal heart sound, S2 normal heart sound and no murmurs GI normal to inspection, nondistended, normoactive bowel sounds, soft to palpation, non-tender and non-distended Extremity Extremity Narrative: RLE is warmer to touch, with mildly palpable DP and PT pulses. Skin Skin Narrative: as under extremities Neuro oriented x3, CN's II-XII intact bilaterally, moves all extremities, no focal motor deficits and no sensory deficits noted Sensorium / Orientation: awake Motor Exam: strength 5/5 throughout and general weakness Psych thought process normal and cooperative Appearance: appropriate Weight / BMI Weight Weight: 185 lb 10.067 oz Body Mass Index (BMI) 24.5 ABG / Lab / Microbiology Data 03/20/24 08:20 03/20/24 08:20 Laboratory: Laboratory Results - last 24 hr 03/20/24 08:20: WBC 9.7, RBC 4.96, Hgb 16.3, Hct 46.7, MCV 94.2 H, MCH 32.9 H, MCHC 34.9, RDW Std Deviation 44.7 H, RDW Coeff of Brent 12.9, Plt Count 170, MPV 11.8, Immature Gran % (Auto) 0.500, Neut % (Auto) 70.4 H, Lymph % (Auto) 19.4, [place] % (Auto) 8.8, Eos % (Auto) 0.6, Baso % (Auto) 0.3, Absolute Neuts (auto) 6.8, Absolute Lymphs (auto) 1.87, Nucleated RBC % 0, APTT 31.1, Sodium 132 L, Potassium 4.0, Chloride 102, Carbon Dioxide 22.0, Anion Gap 8, BUN 7, Creatinine 0.64 L, Estim Creat Clear Calc 102.65, Est GFR (MDRD) Af Amer 160, Est GFR (MDRD) Non-Af 133, BUN/Creatinine Ratio 10.9, Glucose 80, Calcium 8.9 D/C Instructions Discharge Diet: Low fat / Low cholesterol Weight Bearing Status: Weight bearing as tolerated Call your doctor if you observe: Fever of 101 or Higher, Shortness of breath, Dizziness, Swelling in the ankles, Chest pain and Uncontrolled pain DC O2, CPAP, BIPAP Needs Home O2 Discharge instructions: No Meaningful Use Info Meaningful Use Meaningful Use Diagnoses (Choose all that apply): None applicable Ischemic Stroke Statin Dosing Therapy Reference: STATIN DOSE THERAPY REFERENCE: * Patients > 75 years receive moderate or high dose statin therapy. * Patients 75 years or YOUNGER should receive HIGH intensity statin dose unless contraindicated. You will be required to document reason for non-treatment if statin daily dose does not meet guidelines. HIGH DOSE STATIN THERAPY DAILY Atorvastatin > than or = to 40 mg Rosuvastatin > than or = to 20 mg Amlodipine + Atorvastatin > than or = to 2.5/40 mg Ezetimibe + Simvastatin 10/80 mg Simvastatin 80mg Discharge Plan Admission Admit Date/Time: 03/16/24 19:21 Primary Reason for Your Visit: peripheral artery disease Attending Provider: Hyacinth Boone Primary Care Provider: Care Physician,No Primary Consulting Providers: Robert Peter; Nga Dunbar; Manfred Washington; Maykel Cutler; Adin Graham; Abel Noyola; Rebeka Loya; Anish Ahumada; Pascual Wilson; Sumit Cadet; Mark Simmons; Gurvinder Mueller NP; Jazmin Guevara PA; Bashir Polk Instructions Patient Instructions: PAD, ED Peripheral Artery Disease (PAD) Discharge Orders/Prescriptions Prescriptions: New amlodipine 10 mg Tablet 10 mg PO DAILY Qty: 30 2RF aspirin 81 mg Tablet,Chewable 81 mg PO BREAKFAST Qty: 30 2RF atorvastatin 80 mg Tablet 80 mg PO QHS Qty: 30 2RF clopidogrel 75 mg Tablet 75 mg PO DAILY Qty: 30 2RF metoprolol tartrate 25 mg Tablet 25 mg PO BID Qty: 60 2RF Referrals / Follow Up: Abel Noyola MD [Med Staff - Active Staff] - Within 2 Weeks Robert Peter MD [Med Staff - Active Staff] - Within 2 Weeks Care Physician,No Primary [Primary Care Provider] - Within 1 Week Disposition Disposition (needs filled in before D/C Order can be placed): Home, Self Care Charges/Coding Visit Charges Inpatient E&M: 25133 Disch Hosp >30min
--- NOTE | 2024-03-20 16:25 | CASEMGMT ---
Patient has order for discharge. RN CM in to discuss needs at discharge. Patient denies needs or help at discharge. Patient had no further questions or concerns.
== END 2024-03-20 17:24 | disposition home or self-care (01) | DRG 253 ==
LOC: ED 17:42 → PCU 20:18
PROVIDERS: Family Medicine; Admitting Provider Internal Medicine; Emergency Provider Emergency Medicine; Visit Provider Student in an Organized Health Care Education/Training Program
DX: I70.223 Atherosclerosis of native arteries of extremities with rest pain, bilateral legs (principal); E87.1 Hypo-osmolality and hyponatremia; I70.92 Chronic total occlusion of artery of the extremities; I10 Essential (primary) hypertension; D45 Polycythemia vera; I73.89 Other specified peripheral vascular diseases; I16.0 Hypertensive urgency; F17.210 Nicotine dependence, cigarettes, uncomplicated; M62.271 Nontraumatic ischemic infarction of muscle, right ankle and foot; I51.9 Heart disease, unspecified; X58.XXXA Exposure to other specified factors, initial encounter; Z79.82 Long term (current) use of aspirin; Z79.02 Long term (current) use of antithrombotics/antiplatelets; Z79.899 Other long term (current) drug therapy
CPT/HCPCS: 36200; 36245; 36246; 36415; 37221; 37252; 37253; 75625; 75635; 75716; 76937; 78452; 80048; 80053; 80061; 83036; 84439; 84443; 84484; 85025; 85347; 85610; 85730; 93005; 93017; 93306; 93922; 94668; 97161; 97165; 99152; 99153; 99285; 99406; A9500; C1725; C1753; C1760; C1769; C1887; C1894; C2623; Q9957; Q9967; A4216; C1876; J2405; J2785

== ENCOUNTER 2024-04-07 08:26 | Day surgery (SDC) | payer MEDICARE, SELFPAY ==
[2024-04-06 09:05] VITALS: BMI 24.6
--- NOTE | 2024-04-07 08:35 | RAD_ITS ---
EXAM: XR CHEST, 2 VIEWS CLINICAL INDICATION: for heart cath TECHNIQUE: Frontal and lateral views of the chest. COMPARISON: No relevant prior studies available. FINDINGS: LUNGS AND PLEURAL SPACES: Unremarkable. No consolidation or edema. No pneumothorax. No effusion. HEART: Unremarkable. Cardiac silhouette not enlarged. MEDIASTINUM: Central airways and mediastinal contour are unremarkable. BONES/JOINTS: Unremarkable. No acute fracture. SOFT TISSUES: Unremarkable. RAD/Chest PA and Lateral IMPRESSION: No radiographic evidence of acute cardiopulmonary disease. Electronically Signed: Arnaldo Limon MD at 9:16 EST ,
--- NOTE | 2024-04-07 10:40 | CL.D_ITS ---
Patient Name: ZEUS OBREGON Study Date: 04/07/2024 Performing: Abel Noyola MD Ht: 73 inches 185.42 cm : 1960 Wt: 187 lbs 84.82 kg Age: 64 Gender: male BSA: 2.09 PROCEDURE(S) PERFORMED DC01-(51149)LHC/COR/LV CLINICAL PROFILE AND INDICATIONS Indications: Suspected CAD Heart Failure: None Stress/Imaging Date: 03/17/24 CAD Presentations: No Sxs, no angina. CONCLUSIONS Diffuse coronary artery disease with totally occluded right coronary artery with [id number] collaterals and calcification of the left anterior descending artery and left circumflex artery system with no high-grade obstructive disease present. Mildly reduced ejection fraction with inferior mid akinesis. RECOMMENDATIONS Medical therapy DESCRIPTION OF PROCEDURE The patient arrived to the procedure lab. The risks and benefits of the procedure as well as a full description of our services here and current unavailability of surgical backup were fully explained to the patient and/or their significant other prior to the catheterization. The Timeout was completed, verifying the correct patient and procedure. The patient's procedural site was prepped and draped in the usual fashion. Local anesthetic was given subcutaneously to right radial region with Lidocaine 2%. Using a modified Seldinger technique, arterial access was obtained via the right radial artery, a 6Fr sheath was inserted. Left Coronary Artery selective angiography was performed in multiple views using a 5 Fr. 4.0 [place] catheter. Right Coronary Artery selective angiography was then performed in multiple views using a 5 Fr. 4.0 [place] catheter. LV to AO pullback pressures were then recorded. Simultaneous pressures were then recorded.The arterial sheath was pulled and a TR Band was applied for hemostasis 11 ml of air CORONARY ANGIOGRAPHY DOMINANCE: Right Dominant LEFT HEART ASSESSMENT Left Ventricular Ejection Fraction: by LV Gram 50 % Inferior Mid Akinesis. Inferior Apical Hypokinesis - Moderate Depressed Left Ventricular systolic function LEFT MAIN: Moderate calcification, Mild luminal irregularities less than 30% LEFT ANTERIOR DESCENDING ARTERY: Moderate calcification, There is mild to moderate diffuse disease involving the ostium of the first diagonal branch with approximately 40% stenosis. The mid segment has diffuse 30% stenosis and distal luminal irregularities noted of the LAD. CIRCUMFLEX ARTERY: Moderate calcification, There is diffuse disease of the above vessel with an obtuse marginal branch #1 with about 60 to 70% ostial stenosis. There is diffuse disease noted of the AV groove and second obtuse marginal branch. RIGHT CORONARY ARTERY: OSTIAL RCA: is occluded COLLATERAL FLOW: Collateral flow from Left to Right COMPLICATIONS No Complications PROCEDURE MEDICATIONS Fentanyl 50 mcg IV Versed 1 mg IV Oxygen: 2 L/min via nasal cannula Heparin given IA 04/07/2024 09:50:52 Verapamil 2.5mg, Ntg 100mcgs, 3000 units of Heparin given IA 04/07/2024 09:50:52 SUMMARY OF HEMODYNAMIC DATA Time AIR REST ECG 09:07:41 Art 103/48 (65) 09:55:11 Art 156/57 (86) 10:11:55 AO 152/63 (93) SA 10:22:55 LV 140/2, 16 10:29:12 LV 106/12, 21 10:29:31 LV 113/6, 19 10:29:39 LV 132/7, 16 10:29:47 LV 135/4, 13 10:29:55 LVp 136/3, 22 10:29:59 AOp 135/51 (80) 10:30:06 Signed By Abel Noyola MD On 04/07/2024 10:39:26 Abel Noyola MD
== END 2024-04-07 12:00 | disposition home or self-care (01) ==
PROVIDERS: Referring Provider Internal Medicine Cardiovascular Disease; Visit Provider Internal Medicine Cardiovascular Disease
DX: I25.10 Atherosclerotic heart disease of native coronary artery without angina pectoris (principal); Z79.82 Long term (current) use of aspirin; F17.200 Nicotine dependence, unspecified, uncomplicated; R94.39 Abnormal result of other cardiovascular function study; R93.1 Abnormal findings on diagnostic imaging of heart and coronary circulation; I73.9 Peripheral vascular disease, unspecified; I25.82 Chronic total occlusion of coronary artery
CPT/HCPCS: 71046; 93458; 99152; 99153; Q9967; C1769; C1894

== ENCOUNTER → 2024-04-14 | Day surgery (SDC) | payer MEDICARE, SELFPAY ==
--- NOTE | 2024-04-14 08:58 | CDU_ITS ---
Reason For Study: PAD Rt. Velocities/BP Lt. Velocities/BP Prox CCA 89.4/10.2 cm/sec. Prox CCA 76.2/16.8 cm/sec. Mid CCA 84.6/7.9 cm/sec. Mid CCA 93.8/15.7 cm/sec. Dist CCA 66.7/15.1 cm/sec. Dist CCA 79.5/20.1 cm/sec. Prox ICA 112.0/17.0 cm/sec. Prox ICA 85.1/23.0 cm/sec. Mid ICA 95.5/27.9 cm/sec. Mid ICA 346.5/119.6 cm/sec. Dist ICA 90.0/18.8 cm/sec. Dist ICA 144.2/47.2 cm/sec. Rt. ICA/CCA = 1.1. Lt. ICA/CCA = 3.7. Prox ECA 334.7/40.4 cm/sec. Prox ECA 161.5/18.9 cm/sec. Rt. Vert. 57.0/14.5 cm/sec. Lt. Vert. 29.9/0.0 cm/sec. Right Extracranial There is heterogeneous, irregular atherosclerotic plaque noted in the right common carotid artery. There is heterogeneous, irregular atherosclerotic plaque noted in the right internal carotid artery. There is heterogeneous, irregular atherosclerotic plaque noted in the right external carotid artery. Antegrade flow is noted in the right vertebral artery. Left Extracranial There is heterogeneous, irregular atherosclerotic plaque noted in the left common carotid artery. There is heterogeneous, irregular atherosclerotic plaque noted in the left internal carotid artery. There is heterogeneous, irregular atherosclerotic plaque noted in the left external carotid artery. Antegrade flow is noted in the left vertebral artery. Procedure Carotid Duplex [id number]. This is a Carotid Duplex examination using B-mode, color flow and specral Doppler. Exam performed in department. . Preliminary report given to Jacquelin Mack LPN. VL/Carotid Duplex Ultrasound Interpretation Summary Mild (<50%) stenosis right extracranial internal carotid. Severe (>70%) stenosis left extracranial internal carotid. Patent and antegrade vertebrals bilaterally. Ordering Physician: Sheron Oakes Performed By: Lucrecia Lara RVT and Student
--- NOTE | 2024-04-14 08:58 | AAAS_ITS ---
Reason For Study: AAA Screening Aorta Measurements Aorta Doppler Measurements Proximal aorta measures2.05x1.92cm. in cross- Peak systolic flow velocities within the proximal sectional axis. aorta measure 85.9 cm/sec. Proximal aorta measures1.88cm. in longitudinal Peak systolic flow velocities within the mid aorta axis. measure 59.1 cm/sec. Mid aorta measures1.71x1.65cm. in cross-sectional Peak systolic flow velocities within the distal axis. aorta measure 50.3 cm/sec. Mid aorta measures1.82cm. in longitudinal axis. Distal aorta measures1.66/1.89cm. in cross- sectional axis. Distal aorta measures1.63cm. in longitudinal axis. Left Iliac Artery Left iliac artery measures 1.16 cm. in the longitudinal axis. Left iliac artery measures 1.24x1.14 cm. in the cross-sectional axis. Peak systolic velocity in the left iliac artery measures 0.0 cm/sec. Left Illiac Artery no flow noted. Right Iliac Artery Right iliac artery measures 1.13 cm. in the longitudinal axis. Right iliac artery measures 1.16x1.13 cm. in the cross-sectional axis. Peak systolic velocity in the right iliac artery measures 85.4 cm/sec. Procedure Aorta IVC Iliac vasculature or bypass grafts [id number]. Exam performed in department. VL/AAA Screening Interpretation Summary Aorta patent, normal caliber Right iliac artery patent, normal caliber Left iliac occluded, ectasia to 1.24 cm Ordering Physician: Sheron Oakes Performed By: Lucrecia Lara RVT and Student
== END | disposition home or self-care (01) ==
LOC: CLSP 08:57
PROVIDERS: Referring Provider Physician Assistant; Visit Provider Physician Assistant
DX: Z13.6 Encounter for screening for cardiovascular disorders (principal); I74.5 Embolism and thrombosis of iliac artery; I73.9 Peripheral vascular disease, unspecified; I77.9 Disorder of arteries and arterioles, unspecified; I65.23 Occlusion and stenosis of bilateral carotid arteries
CPT/HCPCS: 76706; 93880

== ENCOUNTER → 2024-04-20 | Outpatient (CLI) | payer MEDICARE, SELFPAY ==
[2024-04-20 17:15] LABS: Creatinine, Serum 0.65 mg/dL (0.70-1.30); EST Glomerular Filtration Rate 131 mL/min (>60); Est Glom Filt Rate - Afr Amer 158 mL/min (>60)
== END | disposition home or self-care (01) ==
LOC: LAB 15:33
PROVIDERS: Referring Provider Surgery Trauma Surgery; Visit Provider Surgery Trauma Surgery
DX: I70.222 Atherosclerosis of native arteries of extremities with rest pain, left leg (principal); I65.22 Occlusion and stenosis of left carotid artery
CPT/HCPCS: 36415; 82565

== ENCOUNTER → 2024-05-06 | Outpatient (CLI) | payer MEDICARE, SELFPAY ==
--- NOTE | 2024-05-06 13:51 | CT_ITS ---
PROCEDURE: CTA HEAD AND NECK W/ CONTRAST REASON FOR EXAM: Carotid stenosis. TECHNIQUE: CTA imaging of the head and neck from the aortic arch to the skull vertex with intravenous contrast. 3D reconstructions. CONTRAST: 100 mL of Isovue 370. COMPARISON: None. FINDINGS: Aortic Arch: Normal size and branching pattern. Mild atherosclerotic plaque. Brachiocephalic and Subclavians: Mild atherosclerotic plaque without significant stenosis. RIGHT Carotid: Right CCA: Unremarkable. Right ICA: Calcific plaque at the origin. Maximum stenosis (NASCET): 50 % Right ECA: Unremarkable. LEFT Carotid: Left CCA: Unremarkable. Left ICA: Calcific plaque at the origin. Maximum stenosis (NASCET): > 90 % Left ECA: Unremarkable. Vertebrals: Small left vertebral artery. RIGHT Vertebral: Unremarkable. LEFT Vertebral: Unremarkable. No intracranial aneurysms or large vascular malformations are identified. Anterior cerebral arteries: Unremarkable. Middle cerebral arteries: Unremarkable. Basilar artery: Unremarkable. Posterior cerebral arteries: Unremarkable. Other major branches of the posterior circulation: Unremarkable. Major venous structures: Unremarkable. Other findings: No lymphadenopathy. Lung apices are clear. Bones are unremarkable. CT/CTA Head AND Neck W/ Contrast IMPRESSION: RIGHT CAROTID: 50% stenosis at the origin of the right internal carotid artery. LEFT CAROTID: Tight stenosis at the origin of left internal carotid artery. VERTEBRALS: Small left vertebral artery. INTRACRANIAL: Calcific plaques at the level of the cavernous portions of the in ternal carotid arteries with 50-60% narrowing. Plaque formation at the level of the petrous portions of the carotids bilateral ly. One or more dose reduction techniques were used (e.g., Automated exposure contr ol, adjustment of the mA and/or kV according to patient size, use of iterative reconstruction technique). Reading Location: [id number]
== END | disposition home or self-care (01) ==
LOC: CT 13:51
PROVIDERS: Referring Provider Surgery Trauma Surgery; Visit Provider Surgery Trauma Surgery
DX: I65.22 Occlusion and stenosis of left carotid artery (principal)
CPT/HCPCS: 70496; 70498; Q9967; A4216

== ENCOUNTER 2024-05-19 11:21 | Inpatient (IN) | payer MEDICARE, SELFPAY ==
--- NOTE | 2024-05-05 17:54 | PAT.ANESEVAL ---
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 When Was Last Pacemaker Check QUESTION #4 FULL TEXT: You/Your Family Experience fever (hyperthermia) with Anesthesia Last Oral Intake Last Oral intake: Last Oral Intake NPO since Meds taken in AM with sips of water? 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 - wiring technician: PONV - wiring technician Female No 05/05/24 14:03 HX of Motion Sickness No 05/05/24 14:03 HX of N/V After Surgery No 05/05/24 14:03 Non-Smoker No 05/05/24 14:03 Duration of Surgery greater Yes 05/05/24 14:03 than 60 minutes Number of Risk Factors 1 05/05/24 14:03 PONV Score Low Risk 05/05/24 14:03 Height & Weight Height & Weight: Anesthesia: Height & Weight Height 6 ft 1 in 04/07/24 09:07 Respiratory Assessment Respiratory Assessment - wiring technician: Respiratory Tract Infection Hx - wiring technician Hx Respiratory Tract Infection No 05/05/24 14:03 STOP Sleep Apnea STOP Sleep Apnea - wiring technician: STOP Sleep Apnea - wiring technician Hx Hypertension Yes: CONTROLLED WITH MED 05/05/24 14:03 Hx Sleep Apnea No 05/05/24 14:03 CPAP BIPAP Do you snore loudly (louder No 05/05/24 14:03 than talking or can be heard Do you often feel tired/ No 05/05/24 14:03 fatigued/ sleepy during daytime? Has anyone observed you stop No 05/05/24 14:03 breathing during sleep? STOP Results Negative 05/05/24 14:03 QUESTION #5 FULL TEXT : Do you snore loudly (louder than talking or can be heard through closed doors)? 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 Specify any problems Hx of Preganancy in last 3 N/A 05/05/24 14:03 Months Nurse Filling Out Transfusion DSCHRIBER 05/05/24 14:03 & Questions: Date: 05/05/24 05/05/24 14:03 Time: 14:05 05/05/24 14:03 Patient unable to answer at this time (ie. confused, unrespo /Reproduction History /Reproductive History - wiring technician: /Reproductive Hx- wiring technician Hx Now No 05/05/24 14:03 Gestational Age (in weeks): EDC: Hx Hx Para Hx Section SAB No 05/05/24 14:03 PFSH Medical History Wears glasses Marijuana use Arthritis High cholesterol Dietary restriction History of pain when walking History of edema Hypertension History of echocardiogram History of stress test Cardiology follow-up encounter Hx of pilonidal cyst Atherosclerosis of right lower extremity with rest pain PAD (peripheral artery disease) Alcohol abuse Smoker Home Medications ?Medication ?Instructions ?Recorded ?Last Taken ?Type aspirin 81 mg chewable tablet 81 mg PO BREAKFAST SUPPLEMENT #30 03/20/24 04/07/24 Rx tabs atorvastatin 80 mg tablet 80 mg PO QHS CHOLESTEROL #30 tabs 03/20/24 Unknown Rx clopidogrel 75 mg tablet 75 mg PO DAILY PVD #30 tabs 03/20/24 04/07/24 Rx metoprolol tartrate 25 mg tablet 25 mg PO BID BP 04/20/24 Unknown History amlodipine 10 mg tablet 5 mg (1/2 x 10 mg) PO DAILY BP #0 04/30/24 Unknown Rx tabs Allergy/AdvReac Type Severity Reaction Status Date / Time No Known Allergies Allergy Verified 05/05/24 14:01 Family History Father Colon cancer Surgical History (Updated 05/05/24 @ 14:12 by Alona Barcenas) History of cardiac catheterization Social History Smoking Status: Heavy Smoker (>10/day) Audit: Pertinent Findings Pertinent Findings EKG Perinent findings: March 18, 2024. Sinus bradycardia [address] and T wave abnormality consider anterior lateral ischemia. See cath. Stress test pertinent findings: March 18, 2024. Ejection fraction 50%. Mildly abnormal pharmacologic myocardial perfusion stress test with apical ischemia. See cath. Echo (EF%) pertinent findings: March 17, 2024. Ejection fraction of 50%. No aortic stenosis noted. Heart catheterization pertinent findings: April 07, 2024. Diffuse coronary artery disease with totally occluded right coronary artery with [id number] collaterals. Calcification of the left anterior descending artery and left circumflex artery system with no high-grade obstructive disease present. Mildly reduced ejection fraction of 50% with inferior mid akinesis. Recommendation is medical therapy. Consult pertinent findings: March 26, 2024. Paola IRVIN. 1. Abnormal stress test-indicates some coronary artery disease present?we will proceed to cath. Continue risk factor modification. 2. Dizziness-we will decrease his metoprolol to 12.5 mg twice a day. Continue all other meds. Recommendation Anesthesia Recommendation Anesthesia recommendation: OPTIMIZED for anesthesia
[2024-05-06 14:43] LABS: Hematocrit 41.7 % (40-54); Hemoglobin 14.7 g/dL (13.0-16.5); Mean Corp Hgb Conc 35.3 g/dL (32-36); Mean Corpuscular Hgb 32.2 pg (27.0-32.0); Mean Corpuscular Volume 91.4 fL (80-94); Mean Platelet Vol. 10.9 fl (6.2-12.0); Platelet Count 232 K/mm3 (150-450); RBC Distribution Width CV 12.7 % (11.6-14.6); RBC Distribution Width SD 42.2 fl (35.1-43.9); Red Blood Count 4.56 M/mm3 (4.6-6.2); White Blood Count 12.2 K/mm3 (4.4-11.0)
[2024-05-06 14:58] LABS: Prothrombin Time (Protime)PT. 12.9 SECONDS (11.7-14.9)
[2024-05-06 14:59] LABS: Partial Thromboplast Time 29.7 Seconds (24.1-36.2)
[2024-05-06 15:24] LABS: AST(SGOT) 16 U/L (15-37); Alanine Aminotransfer ALT/SGPT 25 U/L (16-61); Albumin, Serum 3.4 g/dL (3.2-5.0); Alkaline Phosphatase 82 U/L (45-117); Bilirubin, Direct 0.27 mg/dL (0.00-0.30); Globulin 3.4 g/dL (2.2-4.2); Protein, Total 6.8 g/dL (6.4-8.2)
[2024-05-06 15:27] LABS: Anion Gap 11 (5-15); BUN 6 mg/dL (7-18); BUN/Creat Ratio 9.3 RATIO (10-20); Calcium,Total 9.2 mg/dL (8.5-10.1); Chloride 97 mmol/L (98-107); Creatinine, Serum 0.64 mg/dL (0.70-1.30); EST Glomerular Filtration Rate 132 mL/min (>60); Est Glom Filt Rate - Afr Amer 160 mL/min (>60); Glucose 97 mg/dL (74-106); Potassium 3.9 mmol/L (3.5-5.1); Sodium Level 128 mmol/L (136-145)
--- NOTE | 2024-05-07 14:29 | PAT.ANE_ITS ---
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 When Was Last Pacemaker Check QUESTION #4 FULL TEXT: You/Your Family Experience fever (hyperthermia) with Anesthesia Last Oral Intake Last Oral intake: Last Oral Intake NPO since Meds taken in AM with sips of water? 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 - heavy equipment rental associate: PONV - heavy equipment rental associate Female No 05/05/24 14:03 HX of Motion Sickness No 05/05/24 14:03 HX of N/V After Surgery No 05/05/24 14:03 Non-Smoker No 05/05/24 14:03 Duration of Surgery greater Yes 05/05/24 14:03 than 60 minutes Number of Risk Factors 1 05/05/24 14:03 PONV Score Low Risk 05/05/24 14:03 Height & Weight Height & Weight: Anesthesia: Height & Weight Height 6 ft 1 in 04/07/24 09:07 Respiratory Assessment Respiratory Assessment - heavy equipment rental associate: Respiratory Tract Infection Hx - heavy equipment rental associate Hx Respiratory Tract Infection No 05/05/24 14:03 STOP Sleep Apnea STOP Sleep Apnea - heavy equipment rental associate: STOP Sleep Apnea - heavy equipment rental associate Hx Hypertension Yes: CONTROLLED WITH MED 05/05/24 14:03 Hx Sleep Apnea No 05/05/24 14:03 CPAP BIPAP Do you snore loudly (louder No 05/05/24 14:03 than talking or can be heard Do you often feel tired/ No 05/05/24 14:03 fatigued/ sleepy during daytime? Has anyone observed you stop No 05/05/24 14:03 breathing during sleep? STOP Results Negative 05/05/24 14:03 QUESTION #5 FULL TEXT : Do you snore loudly (louder than talking or can be heard through closed doors)? 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 Specify any problems Hx of Preganancy in last 3 N/A 05/05/24 14:03 Months Nurse Filling Out Transfusion DSCHRIBER 05/05/24 14:03 & Questions: Date: 05/05/24 05/05/24 14:03 Time: 14:05 05/05/24 14:03 Patient unable to answer at this time (ie. confused, unrespo /Reproduction History /Reproductive History - heavy equipment rental associate: /Reproductive Hx- heavy equipment rental associate Hx Now No 05/05/24 14:03 Gestational Age (in weeks): EDC: Hx Hx Para Hx Section SAB No 05/05/24 14:03 PFSH Medical History Wears glasses Marijuana use Arthritis High cholesterol Dietary restriction History of pain when walking History of edema Hypertension History of echocardiogram History of stress test Cardiology follow-up encounter Hx of pilonidal cyst Atherosclerosis of right lower extremity with rest pain PAD (peripheral artery disease) Alcohol abuse Smoker Home Medications ?Medication ?Instructions ?Recorded ?Last Taken ?Type aspirin 81 mg chewable tablet 81 mg PO BREAKFAST SUPPL EMENT #30 03/20/24 04/07/24 Rx tabs atorvastatin 80 mg tablet 80 mg PO QHS CHOLESTEROL #30 tabs 03/20/24 Unknown Rx clopidogrel 75 mg tablet 75 mg PO DAILY PVD #30 tabs 03/20/24 04/07/24 Rx metoprolol tartrate 25 mg tablet 25 mg PO BID BP 04/20 Unknown History amlodipine 10 mg tablet 5 mg (1/2 x 10 mg) PO DAILY BP #0 04/30/24 Unknown Rx tabs Allergy/AdvReac Type Severity Reaction Status Date / Time No Known Allergies Allergy Verified 05/05/24 14:01 Family History Father Colon cancer Surgical History (Updated 05/05/24 @ 14:12 by Alona Barcenas) History of cardiac catheterization Social History Smoking Status: Heavy Smoker (>10/day) Audit: Pertinent Findings HISTORY of Pertinent Findings History of Pertinent Findings: EKG Pertinent Findings EKG Perinent findings March 18, 2024. Sinus 05/05/24 18:[address] and T wave abnormality consider anterior lateral ischemia. See cath. Stress Test Pertinent Findings Stress test pertinent findings March 18, 2024. Ejection 05/05/24 18:02 fraction 50%. Mildly abnormal pharmacologic myocardial perfusion stress test with apical ischemia. See cath. Echo Pertinent Findings Echo (EF%) pertinent findings March 17, 2024. Ejection 05/05/24 18:02 fraction of 50%. No aortic stenosis noted. Heart Catheterization Pertinent Findings Heart catheterization April 07, 2024. Diffuse 05/05/24 18:02 pertinent findings coronary artery disease with totally occluded right coronary artery with left-to -right collaterals. Calcification of the left anterior descending artery and left circumflex artery system with no high-grade obstructive disease present. Mildly reduced ejection fraction of 50% with inferior mid akinesis. Recommendation is medical therapy. Consult Pertinent Findings Consult pertinent findings March 26, 2024. 05/05/24 18:02 Paola IRVIN. 1. Abnormal stress test- indicates some coronary artery disease present?we will proceed to cath. Continue risk factor modification. 2. Dizziness-we will decrease his metoprolol to 12.5 mg twice a day. Continue all other meds. Recommendation Anesthesia Recommendation Anesthesia recommendation: F/U recommended (Patient needs a repeat sodium level in the middle of next week (the 02 10 or .))
[2024-05-13 15:40] LABS: Sodium Level 128 mmol/L (136-145)
--- NOTE | 2024-05-13 16:05 | PAT.ANE_ITS ---
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 When Was Last Pacemaker Check QUESTION #4 FULL TEXT: You/Your Family Experience fever (hyperthermia) with Anesthesia Last Oral Intake Last Oral intake: Last Oral Intake NPO since Meds taken in AM with sips of water? 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 - service restorer emergency: PONV - service restorer emergency Female No 05/05/24 14:03 HX of Motion Sickness No 05/05/24 14:03 HX of N/V After Surgery No 05/05/24 14:03 Non-Smoker No 05/05/24 14:03 Duration of Surgery greater Yes 05/05/24 14:03 than 60 minutes Number of Risk Factors 1 05/05/24 14:03 PONV Score Low Risk 05/05/24 14:03 Height & Weight Height & Weight: Anesthesia: Height & Weight Height 6 ft 1 in 04/07/24 09:07 Respiratory Assessment Respiratory Assessment - service restorer emergency: Respiratory Tract Infection Hx - service restorer emergency Hx Respiratory Tract Infection No 05/05/24 14:03 STOP Sleep Apnea STOP Sleep Apnea - service restorer emergency: STOP Sleep Apnea - service restorer emergency Hx Hypertension Yes: CONTROLLED WITH MED 05/05/24 14:03 Hx Sleep Apnea No 05/05/24 14:03 CPAP BIPAP Do you snore loudly (louder No 05/05/24 14:03 than talking or can be heard Do you often feel tired/ No 05/05/24 14:03 fatigued/ sleepy during daytime? Has anyone observed you stop No 05/05/24 14:03 breathing during sleep? STOP Results Negative 05/05/24 14:03 QUESTION #5 FULL TEXT : Do you snore loudly (louder than talking or can be heard through closed doors)? 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 Specify any problems Hx of Preganancy in last 3 N/A 05/05/24 14:03 Months Nurse Filling Out Transfusion DSCHRIBER 05/05/24 14:03 & Questions: Date: 05/05/24 05/05/24 14:03 Time: 14:05 05/05/24 14:03 Patient unable to answer at this time (ie. confused, unrespo /Reproduction History /Reproductive History - service restorer emergency: /Reproductive Hx- service restorer emergency Hx Now No 05/05/24 14:03 Gestational Age (in weeks): EDC: Hx Hx Para Hx Section SAB No 05/05/24 14:03 PFSH Medical History Wears glasses Marijuana use Arthritis High cholesterol Dietary restriction History of pain when walking History of edema Hypertension History of echocardiogram History of stress test Cardiology follow-up encounter Hx of pilonidal cyst Atherosclerosis of right lower extremity with rest pain PAD (peripheral artery disease) Alcohol abuse Smoker Home Medications ?Medication ?Instructions ?Recorded ?Last Taken ?Type aspirin 81 mg chewable tablet 81 mg PO BREAKFAST SUPPL EMENT #30 03/20/24 04/07/24 Rx tabs atorvastatin 80 mg tablet 80 mg PO QHS CHOLESTEROL #30 tabs 03/20/24 Unknown Rx clopidogrel 75 mg tablet 75 mg PO DAILY PVD #30 tabs 03/20/24 04/07/24 Rx metoprolol tartrate 25 mg tablet 25 mg PO BID BP 04/20 Unknown History losartan 50 mg tablet 50 mg PO QDAY #30 tabs 05/08 Unknown Rx Allergy/AdvReac Type Severity Reaction Status Date / Time No Known Allergies Allergy Verified 05/05/24 14:01 Family History Father Colon cancer Surgical History (Updated 05/05/24 @ 14:12 by Alona Barcenas) History of cardiac catheterization Social History Smoking Status: Heavy Smoker (>10/day) Audit: Pertinent Findings HISTORY of Pertinent Findings History of Pertinent Findings: EKG Pertinent Findings EKG Perinent findings March 18, 2024. Sinus 05/05/24 18:[address] and T wave abnormality consider anterior lateral ischemia. See cath. Stress Test Pertinent Findings Stress test pertinent findings March 18, 2024. Ejection 05/05/24 18:02 fraction 50%. Mildly abnormal pharmacologic myocardial perfusion stress test with apical ischemia. See cath. Echo Pertinent Findings Echo (EF%) pertinent findings March 17, 2024. Ejection 05/05/24 18:02 fraction of 50%. No aortic stenosis noted. Heart Catheterization Pertinent Findings Heart catheterization April 07, 2024. Diffuse 05/05/24 18:02 pertinent findings coronary artery disease with totally occluded right coronary artery with left-to -right collaterals. Calcification of the left anterior descending artery and left circumflex artery system with no high-grade obstructive disease present. Mildly reduced ejection fraction of 50% with inferior mid akinesis. Recommendation is medical therapy. Consult Pertinent Findings Consult pertinent findings March 26, 2024. 05/05/24 18:02 Paola IRVIN. 1. Abnormal stress test- indicates some coronary artery disease present?we will proceed to cath. Continue risk factor modification. 2. Dizziness-we will decrease his metoprolol to 12.5 mg twice a day. Continue all other meds. Pertinent Findings Additional pertinent findings: Repeat sodium on 05/13/2024 shows sodium level of 128 mmol/L. The low sodium could be related to losartan dosage of 50 mg p.o. d efren Current Visit Impressions Current Visit Impressions: Sent sodium levels to primary care doctor. Consider lowering or stopping losart an if possible Recommendation Anesthesia Recommendation Anesthesia recommendation: F/U recommended (Sodium level 128 mmol/L. Consider changing or stopping losartan if possible due to low sodium level)
--- NOTE | 2024-05-18 08:43 | PAT.ANESEVAL ---
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 When Was Last Pacemaker Check QUESTION #4 FULL TEXT: You/Your Family Experience fever (hyperthermia) with Anesthesia Last Oral Intake Last Oral intake: Last Oral Intake NPO since Meds taken in AM with sips of water? 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 programmer Female No 05/05/24 14:03 HX of Motion Sickness No 05/05/24 14:03 HX of N/V After Surgery No 05/05/24 14:03 Non-Smoker No 05/05/24 14:03 Duration of Surgery greater Yes 05/05/24 14:03 than 60 minutes Number of Risk Factors 1 05/05/24 14:03 PONV Score Low Risk 05/05/24 14:03 Height & Weight Height & Weight: Anesthesia: Height & Weight Height 6 ft 1 in 04/07/24 09:07 Respiratory Assessment Respiratory Assessment - gameplay programmer: Respiratory Tract Infection Hx - gameplay programmer Hx Respiratory Tract Infection No 05/05/24 14:03 STOP Sleep Apnea STOP Sleep Apnea - gameplay programmer: STOP Sleep Apnea - gameplay programmer Hx Hypertension Yes: CONTROLLED WITH MED 05/05/24 14:03 Hx Sleep Apnea No 05/05/24 14:03 CPAP BIPAP Do you snore loudly (louder No 05/05/24 14:03 than talking or can be heard Do you often feel tired/ No 05/05/24 14:03 fatigued/ sleepy during daytime? Has anyone observed you stop No 05/05/24 14:03 breathing during sleep? STOP Results Negative 05/05/24 14:03 QUESTION #5 FULL TEXT : Do you snore loudly (louder than talking or can be heard through closed doors)? 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 Specify any problems Hx of Preganancy in last 3 N/A 05/05/24 14:03 Months Nurse Filling Out Transfusion DSCHRIBER 05/05/24 14:03 & Questions: Date: 05/05/24 05/05/24 14:03 Time: 14:05 05/05/24 14:03 Patient unable to answer at this time (ie. confused, unrespo /Reproduction History /Reproductive History - gameplay programmer: /Reproductive Hx- gameplay programmer Hx Now No 05/05/24 14:03 Gestational Age (in weeks): EDC: Hx Hx Para Hx Section SAB No 05/05/24 14:03 Active Medications Active Medications: Current Medications Generic Name Dose Route Start Last Admin Trade Name Freq PRN Reason Stop Dose Admin Cefazolin Sodium 2 gm/ N/A 20 mls @ 400 mls/hr 05/19/24 07:30 IV 05/19/24 07:32 PREOP ONE PFSH Medical History Wears glasses Marijuana use Arthritis High cholesterol Dietary restriction History of pain when walking History of edema Hypertension History of echocardiogram History of stress test Cardiology follow-up encounter Hx of pilonidal cyst Atherosclerosis of right lower extremity with rest pain PAD (peripheral artery disease) Alcohol abuse Smoker Home Medications ?Medication ?Instructions ?Recorded ?Last Taken ?Type aspirin 81 mg chewable tablet 81 mg PO BREAKFAST SUPPLEMENT #30 03/20/24 04/07/24 Rx tabs atorvastatin 80 mg tablet 80 mg PO QHS CHOLESTEROL #30 tabs 03/20/24 Unknown Rx clopidogrel 75 mg tablet 75 mg PO DAILY PVD #30 tabs 03/20/24 04/07/24 Rx metoprolol tartrate 25 mg tablet 25 mg PO BID BP 04/20/24 Unknown History losartan 50 mg tablet 50 mg PO QDAY #30 tabs 05/08/24 Unknown Rx Allergy/AdvReac Type Severity Reaction Status Date / Time No Known Allergies Allergy Verified 05/05/24 14:01 Family History Father Colon cancer Surgical History (Updated 05/05/24 @ 14:12 by Alona Barcenas) History of cardiac catheterization Social History Smoking Status: Heavy Smoker (>10/day) Audit: Pertinent Findings HISTORY of Pertinent Findings History of Pertinent Findings: EKG Pertinent Findings EKG Perinent findings March 18, 2024. Sinus 05/05/24 18:[address] and T wave abnormality consider anterior lateral ischemia. See cath. Stress Test Pertinent Findings Stress test pertinent findings March 18, 2024. Ejection 05/05/24 18:02 fraction 50%. Mildly abnormal pharmacologic myocardial perfusion stress test with apical ischemia. See cath. Echo Pertinent Findings Echo (EF%) pertinent findings March 17, 2024. Ejection 05/05/24 18:02 fraction of 50%. No aortic stenosis noted. Heart Catheterization Pertinent Findings Heart catheterization April 07, 2024. Diffuse 05/05/24 18:02 pertinent findings coronary artery disease with totally occluded right coronary artery with left-to -right collaterals. Calcification of the left anterior descending artery and left circumflex artery system with no high-grade obstructive disease present. Mildly reduced ejection fraction of 50% with inferior mid akinesis. Recommendation is medical therapy. Consult Pertinent Findings Consult pertinent findings March 26, 2024. 05/05/24 18:02 Paola IRVIN. 1. Abnormal stress test- indicates some coronary artery disease present?we will proceed to cath. Continue risk factor modification. 2. Dizziness-we will decrease his metoprolol to 12.5 mg twice a day. Continue all other meds. Additional Pertinent Findings Additional pertinent findings Repeat sodium on 05/13/2024 05/13/24 16:09 shows sodium level of 128 mmol/L. The low sodium could be related to losartan dosage of 50 mg p.o. daily Pertinent Findings Additional pertinent findings: Losartan stopped should improve sodium level may consider repeat sodium level on day procedure Recommendation Anesthesia Recommendation Anesthesia recommendation: OPTIMIZED for anesthesia
[2024-05-18 13:16] LABS: Anion Gap 11 (5-15); BUN 8 mg/dL (7-18); Calcium,Total 8.9 mg/dL (8.5-10.1); Chloride 99 mmol/L (98-107); Creatinine, Serum 0.73 mg/dL (0.70-1.30); EST Glomerular Filtration Rate 114 mL/min (>60); Est Glom Filt Rate - Afr Amer 138 mL/min (>60); Glucose 107 mg/dL (74-106); Potassium 4.1 mmol/L (3.5-5.1); Sodium Level 131 mmol/L (136-145)
[2024-05-19] VITALS (29 sets, daily range): BP systolic 96–167; BP diastolic 40–66; PULSE 56–79; RESP 12–16; TEMP 36.1–36.9; O2SAT 92–100; BMI 24.9
--- NOTE | 2024-05-19 06:50 | PCM.PRE.AN2 ---
ASA Classification* ASA Classification ASA Classification: 3 Assessment & Plan Anesthesia* Anesthesia Assessment Anesthesia Assessment: Discussed sedation and/or anesthesia options, risks, benefits, and alternatives with patient/parents/legal guardian/POA. Questions invited. The patient/parents/legal guardian/POA seems to understand and agrees to proceed with anesthesia plan. Reviewed the physical assessment, medical history, allergy history and patient home medications list prior to surgery/procedure/anesthetic and documented any changes. Performed airway and anesthesia risk assessments. Anesthesia Type Anesthesia Type: General ([place] ) Anesthesia Focused Assessment* Temperature: 98.3 F Pulse Rate: 67 Blood Pressure: 143/62 Respiratory Rate: 12 Pulse Ox: 100 Airway Assessment Mouth opens: >3 cm Mallampati Score: II Focused Labs Anesthesia Preop lab: CBC WBC 12.2 K/mm3 (4.4-11.0) H 05/06/24 14:05/06/24 RBC 4.56 M/mm3 (4.6-6.2) L 05/06/24 14:05/06/24 Hgb 14.7 g/dL (13.0-16.5) 05/06/24 14:26 05/06/24 Hct 41.7 % (40-54) 05/06/24 14:05/06/24 Plt Count 232 K/mm3 (150-450) 05/06/24 14:26 05/06/24 CHEMISTRY Potassium 4.1 mmol/L (3.5-5.1) 05/18/24 12:05/18/24 Sodium 131 mmol/L (136-145) L 05/18/24 12:05/18/24 BUN 8 mg/dL (7-18) 05/18/24 12:05/18/24 Creatinine 0.73 mg/dL (0.70-1.30) 05/18/24 12:05/18/24 Glucose 107 mg/dL (74-106) H 05/18/24 12:05/18/24 TSH 5.470 uIU/mL (0.358-3.740) H 03/17/24 04:49 03/17/24 COAG PT 12.9 SECONDS (11.7-14.9) 05/06/24 14:26 05/06/24 Pre-Assessment Diagnosis/Proposed Procedure Planned Operative Procedure(s): LEFT CAROTID ENDARTERECTOMY Anesthesia History 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 When Was Last Pacemaker Check QUESTION #4 FULL TEXT: You/Your Family Experience fever (hyperthermia) with Anesthesia Last Oral Intake Last Oral intake: Last Oral Intake NPO since 22:00 05/19/24 06:22 Meds taken in AM with sips of Yes 05/19/24 06:22 water? 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 - tomahawk weapon system operator: PONV - tomahawk weapon system operator Female No 05/05/24 14:03 HX of Motion Sickness No 05/05/24 14:03 HX of N/V After Surgery No 05/05/24 14:03 Non-Smoker No 05/05/24 14:03 Duration of Surgery greater Yes 05/05/24 14:03 than 60 minutes Number of Risk Factors 1 05/05/24 14:03 PONV Score Low Risk 05/05/24 14:03 Height & Weight Height & Weight: Anesthesia: Height & Weight Height 6 ft 1 in 05/19/24 06:22 Weight: 85.7 kg 05/19/24 06:22 Body Mass Index (BMI) 24.9 05/19/24 06:22 Respiratory Assessment Respiratory Assessment - tomahawk weapon system operator: Respiratory Tract Infection Hx - tomahawk weapon system operator Hx Respiratory Tract Infection No 05/05/24 14:03 STOP Sleep Apnea STOP Sleep Apnea - tomahawk weapon system operator: STOP Sleep Apnea - tomahawk weapon system operator Hx Hypertension Yes: CONTROLLED WITH MED 05/05/24 14:03 Hx Sleep Apnea No 05/05/24 14:03 CPAP BIPAP Do you snore loudly (louder No 05/05/24 14:03 than talking or can be heard Do you often feel tired/ No 05/05/24 14:03 fatigued/ sleepy during daytime? Has anyone observed you stop No 05/05/24 14:03 breathing during sleep? STOP Results Negative 05/05/24 14:03 QUESTION #5 FULL TEXT : Do you snore loudly (louder than talking or can be heard through closed doors)? 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 Specify any problems Hx of Preganancy in last 3 N/A 05/05/24 14:03 Months Nurse Filling Out Transfusion DSCHRIBER 05/05/24 14:03 & Questions: Date: 05/05/24 05/05/24 14:03 Time: 14:05 05/05/24 14:03 Patient unable to answer at this time (ie. confused, unrespo /Reproduction History /Reproductive History - tomahawk weapon system operator: /Reproductive Hx- tomahawk weapon system operator Hx Now No 05/05/24 14:03 Gestational Age (in weeks): EDC: Hx Hx Para Hx Section SAB No 05/05/24 14:03 Active Medications Active Medications: Current Medications Generic Name Dose Route Start Last Admin Trade Name Freq PRN Reason Stop Dose Admin Cefazolin Sodium 2 gm/ N/A 20 mls @ 400 mls/hr 05/19/24 07:30 IV 05/19/24 07:32 PREOP ONE Sodium Chloride 1,000 mls @ 15 mls/hr 05/19/24 06:45 IV 05/24/24 20:04 .Q48H PAVEL Protocol PFSH Medical History Wears glasses Marijuana use Arthritis High cholesterol Dietary restriction History of pain when walking History of edema Hypertension History of echocardiogram History of stress test Cardiology follow-up encounter Hx of pilonidal cyst Atherosclerosis of right lower extremity with rest pain PAD (peripheral artery disease) Alcohol abuse Smoker Home Medications ?Medication ?Instructions ?Recorded ?Last Taken ?Type aspirin 81 mg chewable tablet 81 mg PO BREAKFAST SUPPLEMENT #30 03/20/24 05/18/24 Rx tabs atorvastatin 80 mg tablet 80 mg PO QHS CHOLESTEROL #30 tabs 03/20/24 05/18/24 Rx clopidogrel 75 mg tablet 75 mg PO DAILY PVD #30 tabs 03/20/24 05/18/24 Rx metoprolol tartrate 25 mg tablet 25 mg PO BID BP 04/20/24 05/19/24 History losartan 50 mg tablet 50 mg PO QDAY blood pressure #30 05/08/24 05/15/24 Rx tabs acetaminophen 500 mg tablet 1,000 mg PO Q8H PRN PRN pain 05/19/24 05/18/24 History (Tylenol Extra Strength) Allergy/AdvReac Type Severity Reaction Status Date / Time No Known Allergies Allergy Verified 05/19/24 06:18 Family History Father Colon cancer Surgical History History of cardiac catheterization Social History Smoking Status: Heavy Smoker (>10/day) Review of Systems (Anesthesia) ROS Narrative System reviewed and no additional complaints, except as documented.
--- NOTE | 2024-05-19 07:27 | HP.PCM_ITS ---
History and Physical Allergies No Known Allergies Allergy (Verified 04/20/24 14:47) Medications ?Medication ?Instructions ?Recorded ?Confirmed ?Type amlodipine 10 mg tablet 10 mg PO DAILY #30 tabs 03/20/24 04/20/24 Rx aspirin 81 mg chewable tablet 81 mg PO BREAKFAST #30 tabs 03/20/24 04/20/24 Rx atorvastatin 80 mg tablet 80 mg PO QHS #30 tabs 03/20/24 04/20/24 Rx clopidogrel 75 mg tablet 75 mg PO DAILY #30 tabs 03/20/24 04/20/24 Rx metoprolol tartrate 25 mg tablet 25 mg PO BID 04/20/24 History Have you fallen in the past year?: No PFSH Medical History Abnormal echocardiogram PAD (peripheral artery disease) Atherosclerosis of right lower extremity with rest pain Alcohol abuse Smoker Family History Father Colon cancer Social History Smoking Status: Heavy Smoker (>10/day) HPI HPI HPI: ZEUS OBREGON, is a 64 M who presents to the office today for follow up of severe bilateral lower extremity arterial insufficiency with rest pain. He has multi-level disease bilateral and underwent right iliac stent while admitted in March which relieved his rest pain. His left foot has pain at rest now, though less severe than his right foot had been. No wounds/ulcerations. He had a positive stress test and has had cardiac cath without intervention in the interval since discharge. He also had carotid duplex which revealed left ICA > 70% stenosis. ROS General General: Yes weakness; No weight change, appetite, fatigue, colon cancer or breast cancer HEENT HEENT: No difficulty swallowing, eye injury, eye surgery, swollen glands or hoarseness Endo Endocrine: No thyroid disease, diabetes mellitus, thyroid cancer, Hair loss, heat intolerance or cold intolerance Skin Skin: No rash or changing moles Musc Musculoskeletal: No back problems, arthritis, rheumatoid arthritis, gout or joint pain Cardio Cardiovascular: No murmur, pacemaker, heart disease, atrial fibrillation, high blood pressure, heart attack, heart stent, palpitations, shortness of breat with exertion or chest pain Psych Psychiatric: No depression, anxiety or hearing voices Resp Respiratory: No shortness of breath, No sleep apnea, No cough, No COPD, No asthma, No emphysema and No wheezing Gastro Gastrointestinal: No abdominal pain, No nausea or vomiting, No diarrhea, No constipation, No blood in stool, No acid reflux, No hemorrhoids, No ulcers, No gallbladder problem and No black,tarry stools Emir Hematologic: Yes blood thinners, No blood disorders, No bleeding, No anemia and No blood clots Neuro Neurologic: No system reviewed and no additional complaints, except as documented, No as per HPI, No abnormal gait, No abnormal hearing, No abnormal movements, No abnormal speech, No behavioral changes, Yes burning sensations, No confusion, No convulsions, Yes disequilibrium, Yes dizziness, No localized weakness, No frequent falls, No headache(s), No lack of coordination, No loss of vision, No memory loss, No numbness, No other visual disturbances, Yes radicular pain, No restless legs, No sensory deficit, No syncope, No tingling, Yes tremor(s), Yes weakness and No other Exam Const General: cooperative, healthy appearing, comfortable, no acute distress and well developed Nutritional Appearance: well nourished Orientation: alert, awake and oriented x3 HENMT Head: normocephalic and atraumatic Ears: hearing grossly normal bilaterally Nose: external nose normal Eyes General: appearance normal, both eyes and all related structures EOM: EOM intact bilaterally Neck Neck: normal visual inspection, full ROM, no lymphadenopathy and trachea midline Thyroid: thyroid normal Lymphatic: no lymphadenopathy noted Resp Effort & Inspection: normal respiratory effort, able to speak in complete sentences, symmetric chest movement, no audible wheezes, not labored, no stridor and no use of accessory muscles Cardio Rate: regular rate Rhythm: regular rhythm Pulses: brachial pulses present, radial pulses present, popliteal pulses not present, posterior tibial pulses not present and dorsalis pedis pulses not present Skin General: no rashes or lesions noted and no erythema Wounds: no wounds Neuro Cranial Nerves: CN's II-XI intact bilaterally and EOM intact bilaterally Speech: speech normal Gait: normal gait Motor: strength 5/5 throughout Sensory Exam: no sensory deficits noted Extremities Pulses: Absent: Right Dorsalis Pedis Pulse (monophasic), Left Dorsalis Pedis Pulse (monophasic), Right Posterior Tibial Pulse (monophasic) and Left Posterior Tibial Pulse (monophasic) Psych Appearance: grossly normal and well kempt Mental Status: mental status grossly normal Mood: congruent mood Speech and Movement: speech and movement normal Thought Content: normal Judgment: judgment good Coding Level of Care Code Off vis,est,level 3 Diagnoses Carotid stenosis, left I65.22 Atherosclerosis of [place] artery of left leg with rest pain I70.222 Assessment and Plan Assessment and Plan (1) Carotid stenosis, left: Status: Chronic Plan: -left CEA
--- NOTE | 2024-05-19 07:30 | PLAQ_PTH ---
PATIENT: ZEUS OBREGON LOC: ICU U#:[id number] AGE/SX: 64/M ROOM: ICU07 RE05/19/[address]: Dr. Robert Peter MD : 1960 BED: 1 DIS: 05/20/2024 SPEC #: [id number] RECD: 05/19/24 13:05 STATUS: KEITH RECourtney #: [id number] BETHEL: 05/19/24 07:[address]: Robert Peter DEPT: SURGICAL PATHOLOGY RECD BY: Poly Rob ENTERED: 05/19/24 13:29 SP TYPE: PLAQUE OT DR: No Primary Care Phys Tissues: PLAQUE Procedures: Decalcification bone/plaque Surgery Specimen Level III HEADER OPERATION: Left carotid endarterectomy PRE-OP DIAGNOSIS: Carotid stenosis, left TISSUE SUBMITTED: Left carotid plaque MICROSCOPIC DIAGNOSIS Left carotid plaque, endarterectomy: Atherosclerotic tissue with moderate calcifications (plaque). SJ.mr 05/22/2024 GROSS DESCRIPTION Received in fixative is one container labeled with the patient's name and designated Left carotid plaque. The specimen consists of two pieces of previously opened tubular pieces of de la cruz indurated tissue measuring 2cm in length and 1cm in diameter and 1.5cm in length and 0.7cm in diameter. A detached piece of de la cruz indurated tissue is also noted measuring 1 x 0.5 x 0.3cm. The specimen cuts with gritty sensation. Sanitation Director sections are submitted in one cassette after decalcification. ARMANI 05/19/2024 TC:5 CPT:79524,98602
[2024-05-19] MEDS: Cefazolin 2 GM in Syringe IV (08:10)
--- NOTE | 2024-05-19 11:25 | PCM.OPRPT ---
Operative Report (Standard) Operative Information Date of Procedure: 05/19/24 Pre-Operative Diagnosis: left carotid stenosis Post-Operative Diagnosis: same Surgery/Procedure Performed: left carotid endarterectomy center machine operator: Yes Dye House Wheel Operator: Eren Le Tasks completed by legal executive assistant: Opening, Closing, Opening & closing, Hemostasis: Tie, Hemostasis: Electrocautery and Retracting Type of Anesthesia: General RN Documented Start/Stop Times: Operation Date: 05/19/24 07:30 Case Time Into Pre-Op 05/19/24 06:07 Out of Pre-Op 05/19/24 07:54 Anesthesia Start 05/19/24 07:55 Into Room 05/19/24 07:55 Procedure Start 05/19/24 08:30 Procedure End 05/19/24 11:44 Anesthesia End 05/19/24 12:00 Out of Room 05/19/24 12:00 Into Recovery 05/19/24 12:05 Out of Recovery 05/19/24 13:10 Procedure Start Time: 08:30 Procedure Stop Time: 11:30 Select all DRAINS/GRAFTS/IMPLANTS that apply: Graft Graft details: bovine pericardial patch Estimated Blood Loss: 30 Specimen collected: Yes Description of specimen(s) removed: plaque Description of surgery: HPI: Patient is a 64-year-old male with significant peripheral vascular disease who is in need of lower extremity revascularization. During evaluation preoperatively he was found to have severe stenosis of the left internal carotid artery and presents now for carotid endarterectomy. Description of procedure: Upon obtaining form consent and verification correct patient procedure site the patient was taken to the operating room placed under general anesthesia. He was then positioned prepped and draped in usual sterile fashion and timeout was performed. Oblique incision made along the anterior border the sternocleidomastoid both electrocautery used to dissect down through the subcutaneous tissue to the level the platysma. The platysma was then divided and self-retaining retractor put in position after which further dissection was carried down to the sternocleidomastoid which was dissected along its anterior border and retracted laterally exposing the carotid sheath. Sharp dissection was then used to dissect free the anterior surface of the internal jugular vein with the facial vein identified, ligated with silk ties, and divided. The jugular vein retracted laterally exposing the carotid vessels. Sharp dissection was used dissect free the proximal common carotid artery with care taken to identify and protect the vagus nerve which was his normal anatomic location. The vessel was then dissected free circumferentially and a right angle was used to place a vessel loop. Sharp dissection then carried distally onto the internal carotid artery with care taken to identify and protect the hypoglossal nerve. The vessel was dissected circumferentially beyond the area of palpable distal plaque and a right angle used to place a vessel loop. The patient was then heparinized allowed to circulate for 3 minutes with subsequent heparin dosing based on ACT results. Sharp resection was then used to dissect free the external carotid artery and a right angle used to place a vessel loop. The vessel was then occluded first the internal followed by the common and the external. A longitudinal arteriotomy was created with an 11 blade on the distal common carotid artery and extended with Sheth scissors onto the internal carotid artery beyond the plaque. A 10 [place] shunt was then placed first distally into the internal carotid artery by the backbleed before placing proximally in the common carotid artery. The shunt was interrogated with Doppler found a patent with low resistance signal. We then performed her endarterectomy with a freer elevator with satisfactory endpoint distally on the internal carotid artery and eversion endarterectomy of the external carotid artery. The lumen was then flushed with heparinized saline to clear of debris in the distal endpoint tacked with 7-0 Prolene interrupted sutures. A bovine pericardial patch was then secured in position using a 6-0 Prolene in a running fashion. Prior to completing suture on the shunt was withdrawn and the vessels back flushed. After completing the suture line the internal carotid artery allowed to backbleed and to the bifurcation and then reoccluded at its origin. The clamps were then released first from the external carotid artery than the common carotid artery allowing 10 heartbeats of antegrade flow to flush into the external carotid artery before reestablishing antegrade flow into the internal carotid artery. Vessels were then interrogated with Doppler and found to be patent with appropriate signals. The operators reversed with protamine and Surgiflo and Surgicel topical hemostatic placed with satisfactory stasis observed. A 19 [place] EILEEN was then placed via separate stab incision and the incision was closed with 2-0 Vicryl, 3-0 Vicryl, 4 Monocryl and Dermabond for the skin. At the inclusion of case the patient was awakened from anesthesia moving all extremities to command with cranial nerves intact. He was then taken the recovery room with anticipated mission to the intensive care unit for hemodynamic and neurologic monitoring. Surgical Findings: Moving all extremities to command, cranial nerves intact Complications Complications: No
[2024-05-19] MEDS: Bupivacaine Mpf 0.5% 30 ML VIAL (11:28)
[2024-05-19] MEDS: oxyCODONE 5 MG Tablet PO ×2 (13:42→17:50)
[2024-05-19] MEDS: Acetaminophen 500 MG Tablet 1000 MG PO ×2 (13:42→20:22)
[2024-05-19] MEDS: HYDROmorphone 0.5 MG/0.5 ML SYRINGE IV ×3 (14:59→23:38)
[2024-05-19] MEDS: 0.9% Saline Lock 10 ML Syringe IV ×2 (14:59→20:24)
--- NOTE | 2024-05-19 15:04 | PCM.POST.ANE ---
Anesthesia: Postop Eval I Current Vital Signs Temperature: 97.4 F Pulse Rate: 74 Blood Pressure: 101/40 Respiratory Rate: 16 Pulse Ox: 98 Oxygen Delivery Method: Room Air Assessment Airway patent: Yes Spontaneous unlabored respirations: Yes Mental status: Awake and Calm nausea: No Vomiting: No Anesthesia Complication: No Fluid Hydration Crystalloid volume administer (ml): 1,500 Total IV fluid infused: 1,500 Progress Note Anesthesia document: Postop Eval 1 completed: Yes
[2024-05-19] MEDS: Cefazolin 1 GM/50 ML BAG IV ×2 (16:06→23:32)
[2024-05-19] MEDS: 0.9% Normal Saline (100mL Bag) 100 ML 15 ML IV (16:07)
--- NOTE | 2024-05-19 18:31 | POSTOPAN2_ITS ---
Anesthesia Postop Eval I Sum Postop Eval Completion status Anesthesia document: Postop Eval 1 completed: Yes Anesthesia Postop Eval I Summary Anesthesia Postop Eval I Summary: Anesthesia Postop Eval I: Assessment Summary Airway patent Yes 05/19/24 15:05 [email or web address] Spontaneous unlabored Yes 05/19/24 15:05 [email or web address] respirations Mental status Awake,Calm 05/19/24 15:05 [email or web address] nausea No 05/19/24 15:05 [email or web address] Vomiting No 05/19/24 15:05 [email or web address] Anesthesia Postop Eval I: Fluid Summary Crystalloid volume administer 1,500 05/19/24 15:05 [email or web address] (ml) Colloids volume administered ( ml) Blood Product volume administered (ml) Total IV fluid infused 1,500 05/19/24 15:05 [email or web address] Anesthesia Postop Eval I: Summary Notes Anesthesia Complication No 05/19/24 15:05 [email or web address] Anesthesia Complication Comment: Post-operative progress note Anesthesia: Postop Eval II Evaluation Mental status: Awake and Calm Pain Level: 1 nausea: No Vomiting: No Complications Anesthesia Complication: No
--- NOTE | 2024-05-19 18:31 | PCM.POSTANE2 ---
Anesthesia Postop Eval I Sum Postop Eval Completion status Anesthesia document: Postop Eval 1 completed: Yes Anesthesia Postop Eval I Summary Anesthesia Postop Eval I Summary: Anesthesia Postop Eval I: Assessment Summary Airway patent Yes 05/19/24 15:05 FINAL INSPECTOR [email or web address] [email or web address] Spontaneous unlabored Yes 05/19/24 15:05 FINAL INSPECTOR [email or web address] [email or web address] respirations Mental status Awake,Calm 05/19/24 15:05 FINAL INSPECTOR [email or web address] nausea No 05/19/24 15:05 FINAL INSPECTOR TRUCK [email or web address] Vomiting No 05/19/24 15:05 FINAL INSPECTOR TRUCK [email or web address] Anesthesia Postop Eval I: Fluid Summary Crystalloid volume administer 1,500 05/19/24 15:05 FINAL INSPECTOR TRUCK [email or web address] (ml) Colloids volume administered ( ml) Blood Product volume administered (ml) Total IV fluid infused 1,500 05/19/24 15:05 FINAL INSPECTOR TRUCK [email or web address] Anesthesia Postop Eval I: Summary Notes Anesthesia Complication No 05/19/24 15:05 FINAL INSPECTOR [email or web address] [email or web address] Anesthesia Complication Comment: Post-operative progress note Anesthesia: Postop Eval II Evaluation Mental status: Awake and Calm Pain Level: 1 nausea: No Vomiting: No Complications Anesthesia Complication: No
[2024-05-19] MEDS: Lidocaine 5% Patch 1 PATCH TOPICAL (19:31)
[2024-05-19] MEDS: Atorvastatin Calcium 80 MG Tablet PO (20:21)
[2024-05-19] MEDS: Metoprolol Tartrate 25 MG Tablet PO (20:21)
[2024-05-20] VITALS (17 sets, daily range): BP systolic 119–171; BP diastolic 34–71; PULSE 51–72; RESP 11–20; TEMP 36.1–36.4; O2SAT 94–100; BMI 25.2
[2024-05-20] MEDS: oxyCODONE 5 MG Tablet PO ×2 (02:03→08:31)
[2024-05-20] MEDS: hydrALAZINE 20 MG/ML Vial 10 MG IV (02:03)
[2024-05-20] MEDS: HYDROmorphone 0.5 MG/0.5 ML SYRINGE IV (05:05)
[2024-05-20] MEDS: 0.9% Saline Lock 10 ML Syringe IV (05:05)
[2024-05-20] MEDS: Acetaminophen 500 MG Tablet 1000 MG PO ×2 (05:05→12:58)
[2024-05-20 05:21] LABS: Absolute Neutrophil Count 10.9 X10^3/uL (2.0-7.7); Basophil# 0.03 X10^3/uL; Basophil% 0.2 % (0-1); Hematocrit 32.7 % (40-54); Hemoglobin 11.6 g/dL (13.0-16.5); Lymphocyte % 14.5 % (19-41); Mean Corp Hgb Conc 35.5 g/dL (32-36); Mean Corpuscular Hgb 32.5 pg (27.0-32.0); Mean Corpuscular Volume 91.6 fL (80-94); Mean Platelet Vol. 11.1 fl (6.2-12.0); Monocyte# 0.78 X10^3/uL; Monocyte% 5.7 % (0-10); NRBC Flagged by Analyzer 0 % (0-5); Neutrophil # 10.89 X10^3/uL (2.7-7.7); Neutrophil % 79.1 % (47-70); Platelet Count 192 K/mm3 (150-450); RBC Distribution Width CV 13.2 % (11.6-14.6); RBC Distribution Width SD 44.4 fl (35.1-43.9); Red Blood Count 3.57 M/mm3 (4.6-6.2); White Blood Count 13.8 K/mm3 (4.4-11.0)
--- NOTE | 2024-05-20 08:04 | PCM.PN.SRG ---
Subjective Subjective Mr. Pereira was resting comfortably in bed this morning. He reports minimal discomfort at the neck incision site, notes some numbness. He noted a few episodes of hiccups overnight which was unusual for him but otherwise denies any hoarseness, difficulty breathing, difficulty swallowing or moving his tongue around his mouth. He denies any headaches. He had some dysuria and hematuria initially postoperatively, but this has resolved. He tolerated dinner last night. He has not been out of bed yet. His primary complaint is his L foot rest pain which has been fairly stable over the last few weeks; this is compounded by recent injury to his L 1st toe and L 5th toe. Objective Data Objective Data Vital Signs: Vital Signs Temp Pulse Resp BP Pulse Ox O2 Del Method 97.1 F L 58 L 12 143/67 H 99 Room Air 05/20/24 05:00 05/20/24 07:00 05/20/24 07:00 05/20/24 07:00 05/20/24 07:00 05/20/24 07:00 Oxygen Delivery Method Room Air Weight: 190 lb 0.615 oz Body Mass Index (BMI) 25.2 Intake & Output: Intake and Output for Last 24 Hours 05/18/24 05/19/24 05/20/24 23:59 23:59 23:59 Intake Total 770.75 / 770.75 449.25 / 449.25 Output Total 1200 / 1200 850 / 850 Balance -429.25 / -429.25 -400.75 / -400.75 Lab / Micro Data 05/20/24 05:15 05/18/24 12:09 Labs: Laboratory Results - last 24 hr 05/20/24 05:15: WBC 13.8 H, RBC 3.57 L, Hgb 11.6 L, Hct 32.7 L, MCV 91.6, MCH 32.5 H, MCHC 35.5, RDW Std Deviation 44.4 H, RDW Coeff of [place] 13.2, Plt Count 192, MPV 11.1, Immature Gran % (Auto) 0.500, Neut % (Auto) 79.1 H, Lymph % (Auto) 14.5 L, [place] % (Auto) 5.7, Eos % (Auto) 0.0, Baso % (Auto) 0.2, Absolute Neuts (auto) 10.9 H, Absolute Lymphs (auto) 2.00, Nucleated RBC % 0 Physical Exam Const oriented x3 and no apparent distress Neck Neck Narrative: L neck incision site with dermabond intact, no dehiscence, mild edema, soft to palpation, mild ecchymosis EILEEN drain with small amount of serosanguineous drainage Resp normal respiratory effort Cardio regular rate and regular rhythm Extremity no clubbing, cyanosis or edema Assessment & Plan Assessment/Plan (1) Carotid stenosis, left: PLAN: Plan He is POD#1 from L CEA. EILEEN drain with small amount of output overnight. No hematoma. He is neurologically stable. He was hypertensive requiring a few doses of PRN labetalol and hydralazine overnight. Will restart losartan 50mg daily this morning. Continue home metoprolol. EILEEN drain removed, mild oozing from skin edges which stopped after a few minutes of pressure to the drain site. Will plan for ambulation with nursing/PT later this morning. Anticipate discharge home this afternoon.
[2024-05-20] MEDS: Losartan Potassium 50 MG Tablet PO (08:12)
[2024-05-20] MEDS: Enoxaparin 40 MG/0.4 ML Syringe SC (08:14)
[2024-05-20] MEDS: Clopidogrel Bisulfate 75 MG Tablet PO (08:14)
[2024-05-20] MEDS: Metoprolol Tartrate 25 MG Tablet PO (08:14)
[2024-05-20] MEDS: Aspirin 81 MG TAB.CHEW PO (08:14)
[2024-05-20] MEDS: oxyCODONE 5 MG Tablet 10 MG PO ×2 (08:43→12:57)
--- NOTE | 2024-05-20 10:12 | CASEMGMT ---
AP THOMAS Assessment Face to Face with patient for initial transition planning/care coordination assessment. AP THOMAS introduced self and role at [facility], pt voices understanding. Pt is A&Ox4 and is resting comfortably in bed and is calm. Care providers, pharmacy, and demographics verified. Admitting dx: Lt Carotid Endarterectomy LACE Strata: 1 PCP: No PCP. Pt still has the provider list that was given in March. Pt states that he has been indecisive about this but states that he now wants to get himself established with a PCP through [facility] and that he will do this on his own. Specialists: Denies. Vascular is currently consulted Preferred Pharmacy: [facility] during this stay Insurance: [email or web address] Prescription Benefit: Yes LNOK: Vilma (W) Living Arrangements: Pt lives with his in a two story home with one step to enter ADLs/IADLs: Ind Transportation: Self, DME: Denies uses or needs HHC/SNF: Denies history or needs Pt?s goal: Return home with once medically ready Plan: Anticipate DC home today. Pt is to get up with either nursing or PT prior to DC today. At this time, the pt states that he is completely independent but does experience some pain with ambulation. However, pt denies the need for HH, OP Tx, or CCN. Pt states that he feels safe returning home with his once he is medically ready and denies further questions or concerns at this time. Pramod Ramos RN, CM
--- NOTE | 2024-05-20 11:31 | PCM.DC.SUM ---
Providers Date of Admission: 05/19/24 Primary Care Physician: No Primary Care Phys Reason For Visit: left Carotid Endarterectomy Diagnosis Discharge Diagnosis (1) Carotid stenosis, left: Status: Chronic Code(s): I65.22 - Occlusion and stenosis of left carotid artery Plan He is POD#1 from [facility]. EILEEN drain with small amount of output overnight. No hematoma. He is neurologically stable. He was hypertensive requiring a few doses of PRN labetalol and hydralazine overnight. Will restart losartan 50mg daily this morning. Continue home metoprolol. EILEEN drain removed, mild oozing from skin edges which stopped after a few minutes of pressure to the drain site. Will plan for ambulation with nursing/PT later this morning. Anticipate discharge home this afternoon. Medications at Discharge Home Medications aspirin 81 mg chewable tablet 81 mg PO BREAKFAST SUPPLEMENT #30 tabs 03/20/24 atorvastatin 80 mg tablet 80 mg PO QHS CHOLESTEROL #30 tabs 03/20/24 clopidogrel 75 mg tablet 75 mg PO DAILY PVD #30 tabs 03/20/24 metoprolol tartrate 25 mg tablet 25 mg PO BID BP 04/20/24 losartan 50 mg tablet 50 mg PO QDAY blood pressure #30 tabs 05/08/24 acetaminophen 500 mg tablet (Tylenol Extra Strength) 1,000 mg PO Q8H PRN PRN pain 05/19/24 oxycodone 10 mg tablet 10 mg PO Q8H PRN pain 7 days #21 tabs 05/20/24 Hospital Course Operations - (L CEA) Summary of Care Provided Hospital Course: Mr. Genevieve Pereira is a 64 y/o male who presented to [facility] for planned Left Carotid Endarterectomy on 05/19/2024. The procedure was without complications and he tolerated it well. Postoperatively, he was routinely admitted to the ICU for hemodynamic and neurologic monitoring. He has remained neurologically stable throughout his admission. He was hypertensive following surgery but this improved to his baseline once his home antihypertensive regimen was restarted. His pain at the operative site was minimal and well-controlled with oral pain regimen. EILEEN drained mild amount of serosanguineous drainage and was removed without issue on POD#1. He had no signs/symptoms of hematoma. He was voiding without difficulty and tolerating a normal diet. He ambulated well with PT with assistance of a walker given his LLE pain; recommended walker at discharge. He is discharged to home with family support in place and outpatient follow-up scheduled. Physical Exam Const oriented x3 and no apparent distress Neck Neck Narrative: L neck incision site with dermabond intact, no dehiscence, mild edema, soft to palpation, mild ecchymosis EILEEN drain with small amount of serosanguineous drainage Resp normal respiratory effort Cardio regular rate and regular rhythm Extremity no clubbing, cyanosis or edema Weight / BMI Weight Weight: 190 lb 0.615 oz Body Mass Index (BMI) 25.2 ABG / Lab / Microbiology Data 05/20/24 05:15 05/18/24 12:09 Laboratory: Laboratory Results - last 24 hr 05/20/24 05:15: WBC 13.8 H, RBC 3.57 L, Hgb 11.6 L, Hct 32.7 L, MCV 91.6, MCH 32.5 H, MCHC 35.5, RDW Std Deviation 44.4 H, RDW Coeff of Brent 13.2, Plt Count 192, MPV 11.1, Immature Gran % (Auto) 0.500, Neut % (Auto) 79.1 H, Lymph % (Auto) 14.5 L, Dorado % (Auto) 5.7, Eos % (Auto) 0.0, Baso % (Auto) 0.2, Absolute Neuts (auto) 10.9 H, Absolute Lymphs (auto) 2.00, Nucleated RBC % 0 D/C Instructions Discharge Diet: No restrictions May shower in (days): 1 Weight Bearing Status: Weight bearing as tolerated Lifting Restricted to (Lbs): 20 Lifting Restrictions: Do not lift greater than 20 pounds for 3 weeks Call your doctor if your incision/area has: Continuous Slow Oozing, Foul Smelling Discharge and Swelling at the incision site Call your doctor if you observe: Fever of 101 or Higher and Uncontrolled pain Remove Dressing in: 1 day DC O2, CPAP, BIPAP Needs Home O2 Discharge instructions: No Additional Instructions: You have a small bandage over the site from which the surgical drain was removed. You may remove this bandage tomorrow. As long as there is no residual drainage, you may leave this open to air. If you do notice some continued drainage, you may re-cover with a Band-Aid. Your incision site is covered with skin glue which will continue to protect it. The skin glue will peel/flake off on its own over the next few weeks. Please do not pick at it. You may shower tomorrow. It is okay for soap and water to rinse over the incision site, pat to dry. Do not submerge the incision site in water such as to take a bath or go swimming etc. for 3 weeks. Do not lift greater than 20 pounds for 3 weeks. Otherwise, please continue with activity as tolerated. Do not drive until you can turn your head well enough to safely check your blind spots. I have prescribed a prescription pain medication oxycodone 10 mg tablets to be taken by mouth every 6-8 hours as needed for pain. Do not take in combination with any other prescription pain medications. You may take this in addition to Tylenol; it seems to be most effective to alternate Tylenol and oxycodone every 3-6 hours as we discussed. For your toe injuries, I advise applying Betadine and covering with dry gauze. Change this daily or more often as needed to keep clean and dry. [facility] to [facility] and they can assists with toe nail and wound care as needed. You can call them for an appointment [phone]. You are scheduled for follow-up in the vascular office on 06/05/2024 at 10:30. If you need to change this appointment or have any questions/concerns, please contact the office at [phone]. Please Follow Up With: Sheron Oakes PA When: 06/05/2024 Meaningful Use Info Meaningful Use Meaningful Use Diagnoses (Choose all that apply): None applicable Ischemic Stroke Statin Dosing Therapy Reference: STATIN DOSE THERAPY REFERENCE: * Patients > 75 years receive moderate or high dose statin therapy. * Patients 75 years or YOUNGER should receive HIGH intensity statin dose unless contraindicated. You will be required to document reason for non-treatment if statin daily dose does not meet guidelines. HIGH DOSE STATIN THERAPY DAILY Atorvastatin > than or = to 40 mg Rosuvastatin > than or = to 20 mg Amlodipine + Atorvastatin > than or = to 2.5/40 mg Ezetimibe + Simvastatin 10/80 mg Simvastatin 80mg Discharge Plan Admission Admit Date/Time: 05/19/24 11:21 Attending Provider: Robert Peter Primary Care Provider: Care Physician,No Primary Discharge Orders/Prescriptions Prescriptions: New oxycodone 10 mg tablet 10 mg PO Q8H PRN (Reason: pain) 7 Days Qty: 21 0RF Continued metoprolol tartrate 25 mg tablet 25 mg PO BID aspirin 81 mg Tablet,Chewable 81 mg PO BREAKFAST Qty: 30 2RF atorvastatin 80 mg Tablet 80 mg PO QHS Qty: 30 2RF clopidogrel 75 mg Tablet 75 mg PO DAILY Qty: 30 2RF acetaminophen [Tylenol Extra Strength] 500 mg tablet 1,000 mg PO Q8H PRN PRN (Reason: pain) losartan 50 mg tablet 50 mg PO QDAY Qty: 30 11RF Referrals / Follow Up: Care Physician,No Primary [Primary Care Provider] - Disposition Disposition (needs filled in before D/C Order can be placed): Home, Self Care
--- NOTE | 2024-05-20 12:27 | CASEMGMT ---
Addendum entered by Jagdish Ramos 05/20/24 13:06: Lito from [facility] [place] states that he received the referral and that he will be delivering the FWW shortly. Addendum entered by Jagdish Ramos 05/20/24 12:33: Pt RN notified that pt is clear for DC from RN CM perspective once the FWW is delivered by [employer]. Original Note: PT states that the pt did well and is safe to return home without any HHC, OP Tx, etc. However, PT is recommending a FWW for the pt. RN CM to pt room at this time. Pt states that he feels safe returning home today and denies concerns. A verbal list of local in-network DME companies provided to the pt at this time. Pt prefers [employer]. Rx signed by Dr. Peter and sent to [facility] [place] via [employer] at this time.
== END 2024-05-20 14:15 | disposition home or self-care (01) | DRG 39 ==
PROVIDERS: Anesthesiology; Physician Assistant; Admitting Provider Surgery Trauma Surgery; Referring Provider Surgery Trauma Surgery; Visit Provider Surgery Trauma Surgery
PROC: 03CL0ZZ Extirpation of Matter from Left Internal Carotid Artery, Open Approach (ICD-10-PCS; CPT 35301; principal; 2024-05-19 07:10)
DX: I65.22 Occlusion and stenosis of left carotid artery (principal); F17.210 Nicotine dependence, cigarettes, uncomplicated; I70.223 Atherosclerosis of native arteries of extremities with rest pain, bilateral legs; I10 Essential (primary) hypertension; R25.1 Tremor, unspecified; Z95.820 Peripheral vascular angioplasty status with implants and grafts; R42 Dizziness and giddiness; Z79.82 Long term (current) use of aspirin; Z79.899 Other long term (current) drug therapy; Z79.02 Long term (current) use of antithrombotics/antiplatelets; Z99.89 Dependence on other enabling machines and devices
CPT/HCPCS: 36415; 80048; 80076; 84295; 85025; 85027; 85610; 85730; 88304; 88311; 94668; 94762; 97162; 99252; 99406; A4648; A4216; G0463; J2405

== ENCOUNTER → 2024-05-27 | Outpatient (CLI) | payer MEDICARE, SELFPAY ==
--- NOTE | 2024-05-27 16:30 | RAD_ITS ---
PROCEDURE: Left foot radiographs, three views REASON FOR EXAM: Wounds of the 1st and 5th digits TECHNIQUE: Three views of the left foot were obtained. COMPARISON: None. FINDINGS: Three views of the left foot were obtained. Bones are mildly osteopenic. The included distal tibia and fibula are intact. Tiny plantar calcaneal spur. No acute fracture or dislocation of the left foot. Severe degenerative change at the 1st MTP joint. There is a possible tiny air density projecting over the distal medial soft tissues of the left 1st toe. There is soft tissue swelling of the left toes. No gross bony destructive process is demonstrated. Moderate degenerative changes of the interphalangeal joints. There is moderate dorsal soft tissue swelling of the left foot. RAD/Foot min 3 Views IMPRESSION: Osteopenia. No acute bony abnormality of the left foot. No gross bony destruc tive process. Mild soft tissue swelling of the left toes. There is a possible focus of air d ensity within the soft tissues anterior medial distal left 1st toe, which could represent evidence of a gas producing infectio n or penetrating injury. Suggest correlation with clinical exam findings. If there is continued clinical concern for osteomyelit is, MRI evaluation may be helpful. Moderate dorsal soft tissue swelling of the left foot. Reading Location: [facility]
[2024-05-27 17:08] LABS: Absolute Lymphocyte Count 2.06 X10^3/uL (0.83-4.51); Absolute Neutrophil Count 6.4 X10^3/uL (2.0-7.7); Basophil# 0.05 X10^3/uL; Basophil% 0.5 % (0-1); Eosinophil# 0.04 X10^3/uL; Eosinophils% 0.4 % (0-5); Hematocrit 38.6 % (40-54); Hemoglobin 13.4 g/dL (13.0-16.5); Lymphocyte # 2.06 X10^3/ul (0.83-4.51); Lymphocyte % 22.5 % (19-41); Mean Corp Hgb Conc 34.7 g/dL (32-36); Mean Corpuscular Hgb 32.3 pg (27.0-32.0); Mean Platelet Vol. 11.1 fl (6.2-12.0); Monocyte# 0.64 X10^3/uL; NRBC Flagged by Analyzer 0 % (0-5); Neutrophil # 6.35 X10^3/uL (2.7-7.7); Neutrophil % 69.3 % (47-70); Platelet Count 290 K/mm3 (150-450); RBC Distribution Width CV 13.9 % (11.6-14.6); RBC Distribution Width SD 47.1 fl (35.1-43.9); Red Blood Count 4.15 M/mm3 (4.6-6.2); White Blood Count 9.2 K/mm3 (4.4-11.0)
[2024-05-27 21:33] LABS: Anion Gap 13 (5-15); BUN 6 mg/dL (4-19); BUN/Creat Ratio 8.8 RATIO (10-20); Calcium 9.2 mg/dL (7.6-11.0); Carbon Dioxide 21.3 mmol/L (22.0-29.0); Chloride 95 mmol/L (96-108); Creatinine, Serum 0.7 mg/dL (0.8-1.3); EST Glomerular Filtration Rate 104 (>60); Glucose 99 mg/dL (70-99); Potassium 3.9 mmol/L (3.3-5.1); Sodium Level 130 mmol/L (133-145)
== END | disposition home or self-care (01) ==
LOC: RAD 16:29
PROVIDERS: Referring Provider Physician Assistant; Visit Provider Physician Assistant
DX: I70.222 Atherosclerosis of native arteries of extremities with rest pain, left leg (principal); E87.1 Hypo-osmolality and hyponatremia; M85.80 Other specified disorders of bone density and structure, unspecified site; M79.89 Other specified soft tissue disorders; S99.922A Unspecified injury of left foot, initial encounter; X58.XXXA Exposure to other specified factors, initial encounter
CPT/HCPCS: 36415; 73630; 80048; 85025

== ENCOUNTER 2024-06-11 13:21 | Inpatient (IN) | payer MEDICARE, SELFPAY ==
--- NOTE | 2024-05-29 16:59 | PAT.ANESEVAL ---
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 When Was Last Pacemaker Check QUESTION #4 FULL TEXT: You/Your Family Experience fever (hyperthermia) with Anesthesia Last Oral Intake Last Oral intake: Last Oral Intake NPO since Meds taken in AM with sips of water? 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 Has anyone observed you stop No 05/29/24 10:01 breathing during sleep? STOP Results Negative 05/29/24 10:01 QUESTION #5 FULL TEXT : Do you snore loudly (louder than talking or can be heard through closed doors)? 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 Specify any problems Hx of Preganancy in last 3 N/A 05/29/24 10:01 Months Nurse Filling Out Transfusion MGRIFFITH 05/29/24 10:01 & Questions: Date: 05/29/24 05/29/24 10:01 Time: 10:03 05/29/24 10:01 Patient unable to answer at this time (ie. 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 tutor Hx Now Gestational Age (in weeks): EDC: Hx Hx Para Hx Section SAB No 05/05/24 14:03 PFSH Medical History Blister Easy bruising Excessive bleeding Wears glasses Marijuana use Arthritis High cholesterol History of pain when walking History of edema Hypertension History of echocardiogram History of stress test Cardiology follow-up encounter Atherosclerosis of right lower extremity with rest pain PAD (peripheral artery disease) Alcohol abuse Smoker Home Medications ?Medication ?Instructions ?Recorded ?Last Taken ?Type aspirin 81 mg chewable tablet 81 mg PO BREAKFAST SUPPLEMENT #30 03/20/24 05/18/24 Rx tabs atorvastatin 80 mg tablet 80 mg PO QHS CHOLESTEROL #30 tabs 03/20/24 05/18/24 Rx clopidogrel 75 mg tablet 75 mg PO DAILY PVD #30 tabs 03/20/24 05/18/24 Rx metoprolol tartrate 25 mg tablet 25 mg PO BID BP 04/20/24 05/19/24 History losartan 50 mg tablet 50 mg PO QDAY blood pressure #30 05/08/24 05/15/24 Rx tabs acetaminophen 500 mg tablet 1,000 mg PO Q8H PRN PRN pain 05/19/24 05/18/24 History (Tylenol Extra Strength) cephalexin 500 mg capsule 500 mg PO Q12H Antibiotic 10 days 05/27/24 Unknown Rx #20 caps sulfamethoxazole 800 1 tab PO BID Antibiotic 10 days 05/27/24 Unknown Rx mg-trimethoprim 160 mg tablet #20 tabs (Bactrim DS) tramadol 50 mg tablet 50 mg PO Q8H PRN pain 14 days #42 05/27/24 Unknown Rx tabs Allergy/AdvReac Type Severity Reaction Status Date / Time No Known Allergies Allergy Verified 05/29/24 09:56 Family History Father Colon cancer Surgical History (Updated 05/29/24 @ 10:00 by Ameena Dye) History of excision of pilonidal cyst History of colonoscopy History of carotid endarterectomy History of cardiac catheterization Social History Smoking Status: Heavy Smoker (>10/day) Audit: Pertinent Findings Pertinent Findings EKG Perinent findings: March 18, 2024. Sinus bradycardia at [address] and T wave abnormality consider anterior lateral ischemia. Stress test pertinent findings: March 18, 2024. Ejection fraction 50%. Mildly abnormal myocardial perfusion stress test with apical ischemia. Echo (EF%) pertinent findings: March 17, 2024. Ejection fraction of 50%. No aortic stenosis noted. Heart catheterization pertinent findings: April 07, 2024. Diffuse coronary artery disease with totally occluded right coronary artery with [id number] collaterals and calcification of the left anterior descending artery and left circumflex artery system with no high-grade obstructive disease present. Mildly reduced ejection fraction 50%. With inferior mid akinesis. Recommendation is medical therapy. Recommendation Anesthesia Recommendation Anesthesia recommendation: OPTIMIZED for anesthesia
--- NOTE | 2024-05-29 17:13 | PCM.POST.ANE ---
Anesthesia: Postop Eval I Current Vital Signs Temperature: 97.5 F Pulse Rate: 110 Blood Pressure: 115/97 Respiratory Rate: 18 Pulse Ox: 100 Oxygen Delivery Method: Room Air Assessment Airway patent: Yes Spontaneous unlabored respirations: Yes Mental status: Asleep nausea: No Vomiting: No Anesthesia Complication: No Fluid Hydration Crystalloid volume administer (ml): 20 Total IV fluid infused: 20 Progress Note Anesthesia document: Postop Eval 1 completed: Yes
[2024-05-29 17:16] VITALS: BP 115/97; PULSE 110; RESP 18; TEMP 36.4; O2SAT 100
[2024-06-11] VITALS (20 sets, daily range): BP systolic 118–170; BP diastolic 38–68; PULSE 62–83; RESP 11–18; TEMP 36.3–36.6; O2SAT 95–100; BMI 24.4; BMI 24.6
[2024-06-11] MEDS: 0.9% Normal Saline (1000mL) 1,000 ML 15 ML IV (06:27)
--- NOTE | 2024-06-11 06:55 | PRE.ANES_ITS ---
ASA Classification* ASA Classification ASA Classification: 4 (Patient is a high risk patient who will require two LARGE bore-IVs, and an arterial line. Hx of carotid endartectomy 05/26, severe peripheral artery disease, coronary artery disease, ) Assessment & Plan Anesthesia* Anesthesia Assessment Anesthesia Assessment: Discussed sedation and/or anesthesia options, risks, benefits, and alternatives with patient/parents/legal guardian/POA. Questions invited. The patient/parents/legal guardian/POA seems to understand and agrees to proceed with anesthesia plan. Reviewed the physical assessment, medical history, allergy history and patient home medications list prior to surgery/procedure/anesthetic and documented any changes. Performed airway and anesthesia risk assessments. Anesthesia Type Anesthesia Type: General History Source History Obtained from:: Patient and Chart Anesthesia Focused Assessment* Temperature: 97.6 F Pulse Rate: 65 Blood Pressure: 156/58 Respiratory Rate: 16 Pulse Ox: 100 Oxygen Delivery Method: Room Air Airway Assessment Mouth opens: >3 cm Mallampati Score: II Teeth Condition: Chipped/Broken and Missing (missing a few, poor dentition) Neck Range of motion (ROM): Limited ROM Focused Labs Anesthesia Preop lab: CBC WBC 9.2 K/mm3 (4.4-11.0) 05/27/24 16:41 05/27/24 RBC 4.15 M/mm3 (4.6-6.2) L 05/27/24 16:41 05/27/24 Hgb 13.4 g/dL (13.0-16.5) 05/27/24 16:41 05/27/24 Hct 38.6 % (40-54) L 05/27/24 16:41 05/27/24 Plt Count 290 K/mm3 (150-450) 05/27/24 16:41 05/27/24 CHEMISTRY Potassium 3.9 mmol/L (3.3-5.1) 05/27/24 16:41 05/27/24 Sodium 130 mmol/L (133-145) L 05/27/24 16:41 05/27/24 BUN 6 mg/dL (4-19) 05/27/24 16:41 05/27/24 Creatinine 0.7 mg/dL (0.8-1.3) L 05/27/24 16:41 05/27/24 Glucose 99 mg/dL (70-99) 05/27/24 16:41 05/27/24 TSH 5.470 uIU/mL (0.358-3.740) H 03/17/24 04:49 COAG PT 12.9 SECONDS (11.7-14.9) 05/06/24 14:26 Pre-Assessment Diagnosis/Proposed Procedure Planned Operative Procedure(s): (B) bilateral Femoral Endarterectomy, right to left fem-fem bypass with cadaver, bilateral sartorius flaps Anesthesia History Anesthesia History - fiscal services manager: Anesthesia History - fiscal services manager Hx Hospitalization Yes: 03/2024 RIGHT LEG STENT 05/29/24 10:01 , 05/2024 Carotid Endarectomy Any Problems With Anesthesia No 05/29/24 10:01 Cholinesterase deficiency No 05/29/24 10:01 You/Your Family Experience No 05/29/24 10:01 fever (hyperthermia) with Relationship Recent Exposure to Contagious No 06/11/24 05:56 Disease Does patient have nerve No 05/29/24 10:01 stimulator Patient instructed to have device shut off --Does patient have Pacemaker No 06/11/24 06:05 or ICD? When Was Last Pacemaker Check QUESTION #4 FULL TEXT: You/Your Family Experience fever (hyperthermia) with Anesthesia Last Oral Intake Last Oral intake: Last Oral Intake NPO since 23:00 06/11/24 06:05 Meds taken in AM with sips of Yes 06/11/24 06:05 water? 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 - fiscal services manager: PONV - fiscal services manager Female No 05/29/24 10:01 HX of Motion Sickness No 05/29/24 10:01 HX of N/V After Surgery No 05/29/24 10:01 Non-Smoker No 05/29/24 10:01 Duration of Surgery greater Yes 05/29/24 10:01 than 60 minutes Number of Risk Factors 1 05/29/24 10:01 PONV Score Low Risk 05/29/24 10:01 Height & Weight Height & Weight: Anesthesia: Height & Weight Height 6 ft 1 in 06/11/24 06:05 Weight: 83.915 kg 06/11/24 06:05 Body Mass Index (BMI) 24.4 06/11/24 06:05 Respiratory Assessment Respiratory Assessment - fiscal services manager: Respiratory Tract Infection Hx - fiscal services manager Hx Respiratory Tract Infection No 05/29/24 10:01 STOP Sleep Apnea STOP Sleep Apnea - fiscal services manager: STOP Sleep Apnea - fiscal services manager Hx Hypertension Yes: per pt, CONTROLLED WITH 05/29/24 10:01 MED Hx Sleep Apnea No 05/29/24 10:01 CPAP No 05/29/24 10:01 BIPAP Do you snore loudly (louder No 05/29/24 10:01 than talking or can be heard Do you often feel tired/ No 05/29/24 10:01 fatigued/ sleepy during daytime? Has anyone observed you stop No 05/29/24 10:01 breathing during sleep? STOP Results Negative 05/29/24 10:01 QUESTION #5 FULL TEXT : Do you snore loudly (louder than talking or can be heard through closed doors)? Tobacco Use History Tobacco Use History - fiscal services manager: Tobacco Use History - fiscal services manager Tobacco Use Smoking Status Heavy Smoker (>10/day) 05/29/24 10:01 Hx Tobacco Use Yes 05/29/24 10:01 Years Smoking Packs Smoked per Day Smoking Cessation Date was within the last 15 years Hx Smoking Cessation Date Hx Smoking Cessation Counseling Hematologic Medial History Hematologic Hx - fiscal services manager: Hematologic Medical Hx - senior policy associate Hx of Blood Transfusion No 05/29/24 10:01 Hx of Transfusion in last 3 No 05/29/24 10:01 Months Date of Last Transfusion (if within last 3 months) Ever experience any problems No 05/29/24 10:01 with transfusion(s)? Specify any problems Hx of Preganancy in last 3 N/A 05/29/24 10:01 Months Nurse Filling Out Transfusion MGRIFFITH 05/29/24 10:01 & Questions: Date: 05/29/24 05/29/24 10:01 Time: 10:03 05/29/24 10:01 Patient unable to answer at this time (ie. confused, unrespo /Reproduction History /Reproductive History - fiscal services manager: /Reproductive Hx- fiscal services manager Hx Now Gestational Age (in weeks): EDC: Hx Hx Para Hx Section SAB No 05/26/24 08:30 Active Medications Active Medications: Current Medications Generic Name Dose Route Start Last Admin Trade Name Freq PRN Reason Stop Dose Admin Cefazolin Sodium 2 gm/ N/A 20 mls @ 400 mls/hr 06/11/24 07:30 IV 06/11/24 07:32 PREOP ONE Sodium Chloride 1,000 mls @ 15 mls/hr 06/11/24 05:40 06/11/24 06:27 IV 06/16/24 18:59 15 mls/hr .Q48H PAVEL Administration Protocol PFSH Medical History Blister Easy bruising Excessive bleeding Wears glasses Marijuana use Arthritis High cholesterol History of pain when walking History of edema Hypertension History of echocardiogram History of stress test Cardiology follow-up encounter Atherosclerosis of right lower extremity with rest pain PAD (peripheral artery disease) Alcohol abuse Smoker Home Medications ?Medication ?Instructions ?Recorded ?Last Taken ?Type aspirin 81 mg chewable tablet 81 mg PO BREAKFAST SUPPL EMENT #30 03/20/24 06/11/24 04:30 Rx tabs atorvastatin 80 mg tablet 80 mg PO QHS CHOLESTEROL #30 tabs 03/20/24 06/10/24 23:00 Rx clopidogrel 75 mg tablet 75 mg PO DAILY PVD #30 tabs 03/20/24 06/11/24 04:30 Rx metoprolol tartrate 25 mg tablet 25 mg PO BID BP 04/2006/11/24 04:30 History losartan 50 mg tablet 50 mg PO QDAY blood pressure #30 05/08/24 06/11/24 04:30 Rx tabs acetaminophen 500 mg tablet 1,000 mg PO Q8H PRN PRN pa in 05/19/24 06/10/24 22:00 History (Tylenol Extra Strength) doxycycline hyclate 100 mg tablet 100 mg PO BID preop 7 days #14 tabs 06/05/24 06/10/24 23:00 Rx tramadol 50 mg tablet 50 mg PO Q8H PRN pain 14 day s #42 06/05/24 06/11/24 04:00 Rx tabs Allergy/AdvReac Type Severity Reaction Status Date / Time No Known Allergies Allergy Verified 06/11/24 05:53 Family History Father Colon cancer Surgical History (Updated 05/29/24 @ 10:00 by Ameena Dye) History of excision of pilonidal cyst History of colonoscopy History of carotid endarterectomy History of cardiac catheterization Social History Smoking Status: Heavy Smoker (>10/day) Prior Cardiac Testing/Procedures Prior Cardiac Testing/Procedures: Echocardiogram and Cardiac Angiogram (CTA demonstrated occlusion of both left common and external iliac arteries and occlusion of bilateral superficial femoral arteries with no runoff below the knees. He was placed on high intensity statin and an aspirin. He did undergo an echocardiogram which demonstrated a preserved ejection fractio) Addt'l Information Additional Findings: Diffuse coronary artery disease with totally occluded right coronary artery with [id number] collaterals and calcification of the left anterior descending artery and left circumflex artery system with no high-grade obstructive disease present. Mildly reduced ejection fraction with inferior mid akinesis. Review of Systems (Anesthesia) ROS Narrative System reviewed and no additional complaints, except as documented. Physical Exam Const alert, oriented x3 and average body habitus Resp normal respiratory effort, normal air movement and clear to auscultation bilaterally Cardio regular rate, regular rhythm, no murmurs and diaphoretic
--- NOTE | 2024-06-11 07:10 | PCM.HP.STD ---
HPI - General General Date of Admission: 06/11/24 HPI Narrative ZEUS OBREGON, is a 64 M who presents with atherosclerosis with rest pain, dry gangrene of left lower extremity. He has left iliac total occlusion, sfa occlusion, previously stented right iliac. Presents for left lower extremity revascularization. PFSH Medical History Blister Easy bruising Excessive bleeding Wears glasses Marijuana use Arthritis High cholesterol History of pain when walking History of edema Hypertension History of echocardiogram History of stress test Cardiology follow-up encounter Atherosclerosis of right lower extremity with rest pain PAD (peripheral artery disease) Alcohol abuse Smoker Home Medications ?Medication ?Instructions ?Recorded ?Last Taken ?Type aspirin 81 mg chewable tablet 81 mg PO BREAKFAST SUPPLEMENT #30 03/20/24 06/11/24 04:30 Rx tabs atorvastatin 80 mg tablet 80 mg PO QHS CHOLESTEROL #30 tabs 03/20/24 06/10/24 23:00 Rx clopidogrel 75 mg tablet 75 mg PO DAILY PVD #30 tabs 03/20/24 06/11/24 04:30 Rx metoprolol tartrate 25 mg tablet 25 mg PO BID BP 04/20/24 06/11/24 04:30 History losartan 50 mg tablet 50 mg PO QDAY blood pressure #30 05/08/24 06/11/24 04:30 Rx tabs acetaminophen 500 mg tablet 1,000 mg PO Q8H PRN PRN pain 05/19/24 06/10/24 22:00 History (Tylenol Extra Strength) doxycycline hyclate 100 mg tablet 100 mg PO BID preop 7 days #14 tabs 06/05/24 06/10/24 23:00 Rx tramadol 50 mg tablet 50 mg PO Q8H PRN pain 14 days #42 06/05/24 06/11/24 04:00 Rx tabs Allergy/AdvReac Type Severity Reaction Status Date / Time No Known Allergies Allergy Verified 06/11/24 05:53 Family History Father Colon cancer Surgical History (Updated 05/29/24 @ 10:00 by Ameena Dye) History of excision of pilonidal cyst History of colonoscopy History of carotid endarterectomy History of cardiac catheterization Social History Smoking Status: Heavy Smoker (>10/day) ROS Constitutional Constitutional: Denies chills, fever(s), frequent falls, lethargy or weakness Eyes Eyes: Denies blind spots, change in vision or loss of vision ENT HEENT: Denies bleeding gums, hoarseness or sore throat Cardiovascular Cardiovascular: Denies abdominal pain, bluish discoloration of hand/feet, chest pain with activity, claudication, cold extremities, cyanosis, dyspnea on exertion, erythema on extremities, irregular heart rhythm, leg edema, leg ulcers, numbness in extremities or weakness in extremities Respiratory/Chest Respiratory/Chest: Denies cough, excessive phlegm production, shortness of breath at rest, shortness of breath with exertion or wheezing Gastrointestinal Gastrointestinal: Denies anorexia, change in stool character, constipation, diarrhea, melena or rectal bleeding Genitourinary Genitourinary: Denies dysuria or hematuria Musculoskeletal Musculoskeletal: Denies abnormal gait Integumentary Integumentary: Reports other Details: ; Denies erythema, non-healing lesions or wounds Neurologic Neurologic: Denies abnormal speech, focal weakness, headache(s), loss of vision, numbness, paresthesias or sensory deficit Hematologic/Lymphatic Hematologic/Lymphatic: Denies easy bleeding, easy bruising or lymphadenopathy Vital Signs Vital Signs Vital Signs: 06/11/24 05:56 06/11/24 06:05 06/11/24 07:02 Temperature 97.6 F L 97.6 F L Temperature Source Temporal Pulse Rate 65 65 Respiratory Rate 16 16 Respiratory Pattern Normal Blood Pressure 156/58 H 156/58 H Blood Pressure Mean 90 Blood Pressure Source Monitor Blood Pressure Position Semi-Fowlers Blood Pressure Location Right Arm Pulse Ox 100 100 Oxygen Delivery Method Room Air Room Air Weight Weight: 185 lb Body Mass Index (BMI) 24.4 Physical Exam Const alert, oriented x3, no apparent distress and healthy appearing General Appearance: cooperative; Negative for combative or lethargic Orientation / Consciousness: awake Exam Limitations: no limitations HEENT Head and Scalp: normocephalic and atraumatic Eyes EOMs intact bilaterally General Eye: normal appearance of both eyes Neck full ROM General: trachea midline Resp normal respiratory effort and no use of accessory muscles Effort and Inspection: Negative for labored, stridor or audible wheezes Cardio regular rate and regular rhythm Back/Spine Cervical Spine: cervical ROM normal Extremity full ROM, normal capillary refill and no clubbing, cyanosis or edema Skin no rashes or lesions noted and no wounds Neuro oriented x3, CN's II-XII intact bilaterally, no focal motor deficits and no sensory deficits noted Psych thought process normal, cooperative, affect normal, speech normal and activity/motor behavior normal Results Lab / Micro Data Labs: Laboratory Results - last 24 hr 06/11/24 06:10: Blood Type Cancelled, Antibody Screen Cancelled Assessment & Plan Assessment/Plan (1) Atherosclerosis of [place] artery of left leg with rest pain: PLAN: -bilateral femoral endarterectomy, right to left fem-fem with cadaver, bilateral sartorious flaps
[2024-06-11] MEDS: Cefazolin 2 GM in Syringe IV (07:27)
--- NOTE | 2024-06-11 07:30 | PLAQ_PTH ---
PATIENT: ZEUS OBREGON LOC: ICU U#:[id number] AGE/SX: 64/M ROOM: [facility] RE06/11/[address]: Dr. Robert Peter MD : 1960 BED: 1 DIS: 06/13/2024 SPEC #: [id number] RECD: 06/12/24 09:17 STATUS: SOURosalva REQ #: [id number] BETHEL: 06/11/24 07:[address]: Robert Peter DEPT: SURGICAL PATHOLOGY RECD BY: Seamus Peguero ENTERED: 06/12/24 09:17 SP TYPE: PLAQUE OTHR DR: No Primary Care Phys Tissues: PLAQUE Procedures: Decalcification bone/plaque Surgery Specimen Level III HEADER OPERATION: Lateral femoral endarterectomy, right to left fem- fem bypass PRE-OP DIAGNOSIS: Atherosclerosis of circle artery of left leg with rest pain TISSUE SUBMITTED: A- Plaque left leg MICROSCOPIC DIAGNOSIS PLAQUE FROM [place] ARTERY OF LEFT LEG, ENDARTERECTOMY: * Fibrointimal hyperplasia with calcification, consistent with atherosclerotic plaque. GROSS DESCRIPTION Received in fixative is one container labeled with the patient's name and designated plaque left leg. The specimen consists of 1 segment of whitish-yellow plaque-like material measuring 2 x 1 x 0.4 cm. Totally submitted in 1 cassette for microscopic examination after decalcification. TE1 06/12/24 CPT:[id number], [id number]
[2024-06-11] MEDS: Heparin 10,000 UNITS/10 ML Vial 10000 UNITS ×2 (08:11)
[2024-06-11] MEDS: Albumin Human 25% (100 mL) 25 GM/100 ML BAG IV (08:42)
--- NOTE | 2024-06-11 14:10 | PCM.POST.ANE ---
Anesthesia: Postop Eval I Current Vital Signs Temperature: 97.8 F Pulse Rate: 81 Blood Pressure: 157/53 Respiratory Rate: 18 Pulse Ox: 98 Oxygen Delivery Method: Room Air Assessment Airway patent: Yes Spontaneous unlabored respirations: Yes Mental status: Awake and Calm nausea: No Vomiting: No Anesthesia Complication: No Fluid Hydration Crystalloid volume administer (ml): 3,800 Blood Product volume administered (ml): 443 Total IV fluid infused: 4,243 Progress Note Anesthesia document: Postop Eval 1 completed: Yes
--- NOTE | 2024-06-11 14:54 | POSTOPAN2_ITS ---
Anesthesia Postop Eval I Sum Postop Eval Completion status Anesthesia document: Postop Eval 1 completed: Yes Anesthesia Postop Eval I Summary Anesthesia Postop Eval I Summary: Anesthesia Postop Eval I: Assessment Summary Airway patent Yes 06/11/24 14:11 YARN DRY ROOM WORKER.MDOT Spontaneous unlabored Yes 06/11/24 14:11 YARN DRY ROOM WORKER.MDOT respirations Mental status Awake,Calm 06/11/24 14:11 YARN DRY ROOM WORKER.MDOT nausea No 06/11/24 14:11 YARN DRY ROOM WORKER.MDOT Vomiting No 06/11/24 14:11 YARN DRY ROOM WORKER.MDOT Anesthesia Postop Eval I: Fluid Summary Crystalloid volume administer 3,800 06/11/24 14:11 YARN DRY ROOM WORKER.MDOT (ml) Colloids volume administered ( ml) Blood Product volume 443 06/11/24 14:11 YARN DRY ROOM WORKER.MDOT administered (ml) Total IV fluid infused 4,243 06/11/24 14:11 YARN DRY ROOM WORKER.MDOT Anesthesia Postop Eval I: Summary Notes Anesthesia Complication No 06/11/24 14:11 YARN DRY ROOM WORKER.MDOT Anesthesia Complication Comment: Post-operative progress note Anesthesia: Postop Eval II Evaluation Mental status: Awake Pain Level: 0 nausea: No Vomiting: No Complications Anesthesia Complication: No
--- NOTE | 2024-06-11 14:54 | PCM.POSTANE2 ---
Anesthesia Postop Eval I Sum Postop Eval Completion status Anesthesia document: Postop Eval 1 completed: Yes Anesthesia Postop Eval I Summary Anesthesia Postop Eval I Summary: Anesthesia Postop Eval I: Assessment Summary Airway patent Yes 06/11/24 14:11 NEWS ASSIGNMENT EDITOR.MDOT Spontaneous unlabored Yes 06/11/24 14:11 NEWS ASSIGNMENT EDITOR.MDOT respirations Mental status Awake,Calm 06/11/24 14:11 NEWS ASSIGNMENT EDITOR.MDOT nausea No 06/11/24 14:11 NEWS ASSIGNMENT EDITOR.MDOT Vomiting No 06/11/24 14:11 NEWS ASSIGNMENT EDITOR.MDOT Anesthesia Postop Eval I: Fluid Summary Crystalloid volume administer 3,800 06/11/24 14:11 NEWS ASSIGNMENT EDITOR.MDOT (ml) Colloids volume administered ( ml) Blood Product volume 443 06/11/24 14:11 NEWS ASSIGNMENT EDITOR.MDOT administered (ml) Total IV fluid infused 4,243 06/11/24 14:11 NEWS ASSIGNMENT EDITOR.MDOT Anesthesia Postop Eval I: Summary Notes Anesthesia Complication No 06/11/24 14:11 NEWS ASSIGNMENT EDITOR.MDOT Anesthesia Complication Comment: Post-operative progress note Anesthesia: Postop Eval II Evaluation Mental status: Awake Pain Level: 0 nausea: No Vomiting: No Complications Anesthesia Complication: No
[2024-06-11] MEDS: 0.45% Normal Saline 1,000 ML 100 ML IV (16:07)
[2024-06-11] MEDS: Acetaminophen 500 MG Tablet 1000 MG PO ×2 (16:08→20:44)
[2024-06-11] MEDS: oxyCODONE 5 MG Tablet PO ×2 (17:11→21:10)
[2024-06-11] MEDS: HYDROmorphone 0.5 MG/0.5 ML SYRINGE IV ×3 (17:11→21:10)
--- NOTE | 2024-06-11 17:22 | PCM.OPRPT ---
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 Post-Operative Diagnosis: Same Surgery/Procedure Performed: Right to left femoral femoral bypass with cadaver Left profunda endarterectomy Bilateral sartorius flaps tower switch operator: Yes Hog Ringer: Linette Maciel Tasks completed by resident care assistant: Opening, Closing, Opening & closing, Hemostasis: Tie and Retracting Type of Anesthesia: General RN Documented Start/Stop Times: Operation Date: 06/11/24 07:30 Case Time Into Pre-Op 06/11/24 05:32 Out of Pre-Op 06/11/24 07:24 Into Room 06/11/24 07:27 Anesthesia Start 06/11/24 08:11 Procedure Start 06/11/24 08:11 Procedure End 06/11/24 13:52 Anesthesia End 06/11/24 13:59 Out of Room 06/11/24 13:59 Into Recovery 06/11/24 14:03 Out of Recovery 06/11/24 15:37 Procedure Start Time: 08:10 Procedure Stop Time: 13:50 Select all DRAINS/GRAFTS/IMPLANTS that apply: Tissue Tissue details: Cadaver femoral-popliteal artery Estimated Blood Loss: 900 Specimen collected: Yes Description of specimen(s) removed: Left femoral plaque Description of surgery: HPI: Patient 58-year-old male with 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 He presents for revascularization for limb salvage. Description of procedure: Upon obtaining form consent verification correct patient procedure site patient was taken to the operating where he was placed under general anesthesia. He was then positioned and draped in usual sterile fashion and timeout performed. Vertical incision made over the right femoral artery and Bovie cautery was dissect down to the subcutaneous tissue. Self-retaining retractors and put in position further dissection carried down to the femoral sheath was then incised vertically exposing the femoral vessels. The retractors were then moved deeper into the wound and sharp dissection used to dissect free the common femoral artery proximally up onto the inguinal ligament to the distal external iliac artery where the vessel was soft and able to be clamped. Next sharp dissection was carried down onto the superficial femoral artery which was dissected free circumferentially and a right angle was used to place a vessel loop. Sharp dissection was dissected free from the femoral artery down onto the posterior branches of a soft vessel that could be clamped was encountered. A right angle was used to place Vesseloops on the disease individually. Next vertical incision was made over the left femoral artery and Bovie used to dissect down through the subcutaneous tissue and self-retaining retractors put in position. Further dissection was then carried down the femoral sheath with incised vertically exposing the femoral vessels. Self-retaining retractors were then moved deeper into the wound and sharp dissection used to dissect free the common femoral artery up to the inguinal ligament and distally to the superior artery and tertiary branches of the profunda. There was significant plaque in the distal common femoral and profunda so extensive dissection was required to find a vessel location that could be clamped. Given the need for extensive dissection to find vessel that could be safely clamped the need for a left profunda endarterectomy adding an additional 1 hour after the surgery time a modifier 22 was applied. Right angle used to place vessel branch of the branches individually and then a Cruz tunneler used to create a subcutaneous tunnel between the 2 femoral access the cadaver femoral-popliteal artery was then thawed per missile facilities repairer's instruction and the patient heparinized allowed to circulate for 3 minutes. Repeat heparin dosing was based on subsequent ACT results. First the right femoral vessels were occluded with Vesseloops and longitudinal arteriotomy created on the distal common femoral artery and extended onto the profunda with Sheth scissors. There was scattered chronic there is no significant stenosis so no endarterectomy was performed. The cadaver vessel was then beveled to match the arteriotomy and proximal anastomosis performed using 6-0 Prolene in a running fashion. After completing suture line clamps removed and flow flush through the graft with satisfactory hemostasis noted after some repair sutures were placed. The graft was then marked to maintain orientation and then secured to the tunneler and pulled through to the left femoral incision. The left femoral vessels were then occluded with Vesseloops and a longitudinal arteriotomy created with 11 blade and extended with Sheth scissors onto the profundofemoral artery. Given the degree of stenosis and bulky plaque we had to extend the arteriotomy obtuse to secondary branches of the profunda and performed endarterectomy of the main profunda as well as the secondary branches. The distal endpoints were then tacked with 7-0 Prolene interrupted sutures. A portion of the excess cadaver was then fashioned into a patch and utilized to perform patch angioplasty of the main profunda outflow branch. This was secured in the position with a 6-0 Prolene in running fashion. Next the graft was cut the length and beveled to match the remaining arteriotomy extending from the distal common femoral artery onto the other secondary profunda branch. This was then secured in position with a 6-0 Prolene in a running fashion with the suture line junction with the proximal portion of the patch. Prior to completing the suture line vessels and the graft were flushed and after completing the suture line clamps removed and satisfactory stasis was noted after repair stitches at the patch and bypass junction site. There also was a second location of bleeding from a clamp injury site that required 6-0 Prolene simple repair. Heparin was then reversed with protamine and our attention turned to the sartorius muscles. First dissection was carried lateral to the left common femoral artery onto the surface of the fascia which was then incised vertically exposing the sartorius muscle. Bovie dissection was then carried proximally up to the anterior superior iliac spine and the insertion of the sartorius muscle. The muscle was then mobilized along the lateral edge and its insertion in the ASIS divided and then the muscle reflected medially covering the femoral vessels and bypass graft. It was then secured in position using a 2-0 Vicryl interrupted suture. Incision was then inspected for hemostasis and closed with 3-0 Vicryl, 4 Monocryl and Dermabond for skin. Next we dissected lateral to the right femoral vessels onto the fascia overlying the sartorius muscle and again divided the fascia and extended superiorly up to the anterior superior iliac spine. The sartorius was then mobilized along its lateral edge and its insertion and the ASIS divided with Bovie. The muscle was then reflected medially to cover the femoral vessels and bypass graft. He was then secured in position with a 2-0 Vicryl interrupted suture. The incision closed with 3-0 Vicryl, 4 Monocryl and Dermabond for the skin. The patient was then awakened anesthesia taken to the recovery room with anticipated admission to the intensive care unit for hemodynamic and vascular monitoring. Surgical Findings: See above Complications Complications: No
[2024-06-11] MEDS: HEPARIN/D5w 25,000 UNITS 25,000 UNITS/250 ML IV.SOLN. 5 UNITS CONT INF (18:28)
[2024-06-11] MEDS: Cefazolin 1 GM/50 ML BAG IV (20:44)
[2024-06-11] MEDS: Doxycycline 100 MG CAPSULE PO (20:45)
[2024-06-11] MEDS: Metoprolol Tartrate 25 MG Tablet PO (20:45)
[2024-06-11] MEDS: Atorvastatin Calcium 80 MG Tablet PO (20:46)
[2024-06-11] MEDS: Gabapentin 300 MG Capsule PO (22:22)
[2024-06-11] MEDS: Ketorolac 10 MG Tablet PO (22:22)
[2024-06-12] VITALS (21 sets, daily range): BP systolic 105–141; BP diastolic 39–69; PULSE 58–101; RESP 10–17; TEMP 35.9–36.7; O2SAT 93–100; BMI 24.4
[2024-06-12] MEDS: HYDROmorphone 0.5 MG/0.5 ML SYRINGE IV ×2 (00:09→18:03)
[2024-06-12] MEDS: oxyCODONE 5 MG Tablet 10 MG PO ×5 (02:38→19:55)
[2024-06-12] MEDS: Cefazolin 1 GM/50 ML BAG IV (03:19)
[2024-06-12 03:33] LABS: Absolute Lymphocyte Count 1.76 X10^3/uL (0.83-4.51); Absolute Neutrophil Count 8.6 X10^3/uL (2.0-7.7); Basophil# 0.02 X10^3/uL; Basophil% 0.2 % (0-1); Eosinophil# 0.03 X10^3/uL; Eosinophils% 0.3 % (0-5); Hematocrit 28.1 % (40-54); Hemoglobin 9.9 g/dL (13.0-16.5); Lymphocyte # 1.76 X10^3/ul (0.83-4.51); Lymphocyte % 15.5 % (19-41); Mean Corp Hgb Conc 35.2 g/dL (32-36); Mean Corpuscular Hgb 32.9 pg (27.0-32.0); Mean Corpuscular Volume 93.4 fL (80-94); Mean Platelet Vol. 11.2 fl (6.2-12.0); Monocyte# 0.87 X10^3/uL; Monocyte% 7.7 % (0-10); NRBC Flagged by Analyzer 0 % (0-5); Neutrophil # 8.64 X10^3/uL (2.7-7.7); Neutrophil % 75.9 % (47-70); Platelet Count 212 K/mm3 (150-450); RBC Distribution Width CV 14.4 % (11.6-14.6); RBC Distribution Width SD 48.7 fl (35.1-43.9); Red Blood Count 3.01 M/mm3 (4.6-6.2); White Blood Count 11.4 K/mm3 (4.4-11.0)
[2024-06-12 03:56] LABS: Anion Gap 11 (5-15); BUN 6 mg/dL (4-19); BUN/Creat Ratio 10.5 RATIO (10-20); Carbon Dioxide 19.3 mmol/L (21.0-32.0); Chloride 93 mmol/L (98-108); Creatinine, Serum 0.56 mg/dL (0.70-1.20); EST Glomerular Filtration Rate 109 (>60); Estimated Creatinine Clearance 102.65 ml/min (50-250); Glucose 113 mg/dL (70-99); Potassium 4.1 mmol/L (3.3-5.1); Sodium Level 124 mmol/L (133-145)
[2024-06-12] MEDS: Acetaminophen 500 MG Tablet 1000 MG PO ×2 (06:22→14:07)
[2024-06-12] MEDS: HYDROmorphone 1 MG/ML Syringe IV ×2 (06:22→21:46)
[2024-06-12] MEDS: Gabapentin 300 MG Capsule PO ×2 (07:45→15:54)
[2024-06-12] MEDS: Aspirin 81 MG TAB.CHEW PO (07:52)
[2024-06-12] MEDS: Losartan Potassium 50 MG Tablet PO (07:53)
[2024-06-12] MEDS: Doxycycline 100 MG CAPSULE PO ×2 (07:53→21:07)
[2024-06-12] MEDS: Metoprolol Tartrate 25 MG Tablet PO ×2 (07:53→21:08)
[2024-06-12] MEDS: Clopidogrel Bisulfate 75 MG Tablet PO (10:58)
[2024-06-12] MEDS: Docusate Sodium 100 MG Capsule PO (10:58)
[2024-06-12] MEDS: Ondansetron 4 MG/2 ML Vial IV (11:35)
[2024-06-12 13:22] LABS: Hemoglobin 9.6 g/dL (13.0-16.5)
--- NOTE | 2024-06-12 13:57 | CASEMGMT ---
AP THOMAS Chart Review: Patient was admitted 05/19-05/20/24 for a L carotid endarterectomy. Pt was discharged home with family support in place. Pt returned to [facility] on 06/11/24 for a planned bilateral femoral endarterectomy. Pt is following with a youth minister for a gangrene of left lower extremity, before podiatry can address gangrene LLE, pt needed to have vascular procedures completed for good blood flow to extremity. Pt states he has not set up a PCP yet, but does have our list from when he was here previously and intends to get one. Pt states he has a walker from previous admission. Pt intends to DC home with family support. Denies DC needs at this time.
--- NOTE | 2024-06-12 14:55 | PN.SURG_ITS ---
Subjective Subjective I saw patient resting in bed this morning and again up to the bedside chair this afternoon. He has expected pain at the incision sites, but mostly complaining of pain into his feet still; more burning in nature. This got a bit better by the afternoon. He has noticed some dizziness and nausea, he has not had much appetite yet or eaten much yet. He had de anda removed this morning, by the afternoon had not yet voided but also reported no urge and oral intake has been low. Hgb was stable through the day. He did well with PT/OT today. Objective Data Objective Data Vital Signs: Vital Signs Temp Pulse Resp BP Pulse Ox O2 Del Method O2 Flow Rate 97.9 F 68 14 105/56 L 97 Room Air 2 06/12/24 12:00 06/12/24 14:00 06/12/24 14:00 06/12/24 14:00 06/12/24 14:00 06/12/24 14:00 06/12/24 00:00 Oxygen Flow Rate (L/min) 2 Oxygen Delivery Method Room Air Weight: 184 lb 15.485 oz Body Mass Index (BMI) 24.4 Intake & Output: Intake and Output for Last 24 Hours 06/10/24 06/11/24 06/12/24 23:59 23:59 23:59 Intake Total 4673 / 4673 1050 / 1050 Output Total 1850 / 2200 350 / 350 Balance 2823 / 2473 700 / 700 Lab / Micro Data 06/12/24 13:00 06/12/24 03:20 Labs: Laboratory Results - last 24 hr 06/12/24 03:20: WBC 11.4 H, RBC 3.01 L, Hgb 9.9 L, Hct 28.1 L, MCV 93.4, MCH 32.9 H, MCHC 35.2, RDW Std Deviation 48.7 H, RDW Coeff of Brent 14.4, Plt Count 212, MPV 11.2, Immature Gran % (Auto) 0.400, Neut % (Auto) 75.9 H, Lymph % (Auto) 15.5 L, [place] % (Auto) 7.7, Eos % (Auto) 0.3, Baso % (Auto) 0.2, Absolute Neuts (auto) 8.6 H, Absolute Lymphs (auto) 1.76, Nucleated RBC % 0, Sodium 124 L , Potassium 4.1, Chloride 93 L, Carbon Dioxide 19.3 L, Anion Gap 11, BUN 6, C reatinine 0.56 L, Estim Creat Clear Calc 102.65, Est GFR (MDRD) Non-Af 109, BUN/Creatinine Ratio 10.5, Glucose 113 H, Calcium 8.0 06/12/24 13:00: Hgb 9.6 L Physical Exam Const oriented x3 and no apparent distress Resp normal respiratory effort Cardio regular rate and regular rhythm Extremity Extremity Narrative: Bilateral groin incision sites with Prevena vacuum dressings intact and maintaining seal. No focal edema, ecchymosis, erythema. No drainage. Left toe wounds with stable dry gangrene. Bilateral PT and DP with improved doppler signals, great signal through the bypass Mild swelling in the legs, bilateral lower leg compartments soft and nontender to palpation Assessment & Plan Assessment/Plan (1) Atherosclerosis of right lower extremity with rest pain: (2) Atherosclerosis of [place] artery of left leg with rest pain: (3) Status post femorofemoral bypass surgery: PLAN: Plan He is POD#1 from bilateral femoral endarterectomy, fem-fem bypass, and bilateral sartorius flaps. Vascular exam is improved, great signal through the bypass. Incision sites are satisfactory in appearance. Hgb was 9.9 this morning, 9.6 on repeat this afternoon. Will increase to low- dose therapeutic heparin this evening and continue to monitor Hgb. Plan for Xarelto 20mg daily at discharge. He is having postoperative pain, digit pain due to wounds, and additionally reperfusion related nerve pain. He has been started on Gabapentin 300mg BID in addition to oxycodone/hydromorphone PRN and scheduled tylenol. Possible urinary retention, he has no urge and has not had much intake so will continue to monitor for now. He has chronic hyponatremia but lower than baseline (~128-130) today so will hold losartan for now and monitor. Possible discharge tomorrow.
[2024-06-12] MEDS: HEPARIN/D5w 25,000 UNITS 25,000 UNITS/250 ML IV.SOLN. 12 UNITS CONT INF (15:53)
[2024-06-12] MEDS: Atorvastatin Calcium 80 MG Tablet PO (21:07)
[2024-06-12 21:59] LABS: Partial Thromboplast Time 203.3 Seconds (24.1-36.2)
[2024-06-13] VITALS (8 sets, daily range): BP systolic 107–137; BP diastolic 57–63; PULSE 67–97; RESP 13–16; TEMP 36.2–36.6; O2SAT 95–98; BMI 24.4
[2024-06-13] MEDS: oxyCODONE 5 MG Tablet 10 MG PO ×3 (00:03→09:53)
[2024-06-13] MEDS: HYDROmorphone 1 MG/ML Syringe IV (00:52)
[2024-06-13] MEDS: Acetaminophen 500 MG Tablet 1000 MG PO ×2 (06:13→13:49)
[2024-06-13 06:16] LABS: Absolute Neutrophil Count 11.9 X10^3/uL (2.0-7.7); Basophil# 0.03 X10^3/uL; Basophil% 0.2 % (0-1); Hematocrit 24.7 % (40-54); Hemoglobin 9.1 g/dL (13.0-16.5); Lymphocyte % 8.8 % (19-41); Mean Corp Hgb Conc 36.8 g/dL (32-36); Mean Corpuscular Hgb 33.7 pg (27.0-32.0); Mean Corpuscular Volume 91.5 fL (80-94); Mean Platelet Vol. 10.9 fl (6.2-12.0); Monocyte# 1.51 X10^3/uL; Monocyte% 10.2 % (0-10); NRBC Flagged by Analyzer 0 % (0-5); Neutrophil # 11.92 X10^3/uL (2.7-7.7); Neutrophil % 80.3 % (47-70); POSITIVE DIFFERENTIAL YES; Platelet Count 172 K/mm3 (150-450); RBC Distribution Width CV 14.4 % (11.6-14.6); RBC Distribution Width SD 48.1 fl (35.1-43.9); White Blood Count 14.8 K/mm3 (4.4-11.0)
[2024-06-13 06:27] LABS: Partial Thromboplast Time 45.4 Seconds (24.1-36.2)
[2024-06-13 06:29] LABS: Differential Indicated SCAN CRITERIA MET
[2024-06-13 07:28] LABS: Anion Gap 11 (5-15); BUN 7 mg/dL (4-19); Calcium,Total 8.1 mg/dL (7.6-11.0); Carbon Dioxide 19.9 mmol/L (21.0-32.0); Chloride 95 mmol/L (98-108); Creatinine, Serum 0.54 mg/dL (0.70-1.20); EST Glomerular Filtration Rate 110 (>60); Estimated Creatinine Clearance 102.65 ml/min (50-250); Glucose 108 mg/dL (70-99); Potassium 4.1 mmol/L (3.3-5.1); Sodium Level 126 mmol/L (133-145)
[2024-06-13] MEDS: Aspirin 81 MG TAB.CHEW PO (08:12)
[2024-06-13] MEDS: Doxycycline 100 MG CAPSULE PO (08:12)
[2024-06-13] MEDS: Clopidogrel Bisulfate 75 MG Tablet PO (08:12)
[2024-06-13] MEDS: Gabapentin 300 MG Capsule PO ×2 (08:15→13:49)
[2024-06-13] MEDS: HEPARIN/D5w 25,000 UNITS 25,000 UNITS/250 ML IV.SOLN. 10 UNITS CONT INF (08:19)
[2024-06-13 09:29] LABS: Platelet Estimate A (ADEQ)
[2024-06-13] MEDS: Metoprolol Tartrate 25 MG Tablet PO (11:28)
[2024-06-13 14:14] LABS: Partial Thromboplast Time 40.7 Seconds (24.1-36.2)
--- NOTE | 2024-06-13 16:34 | DS.PCM_ITS ---
Providers Date of Admission: 06/11/24 Primary Care Physician: No Primary Care Phys Reason For Visit: bilateral Femoral Endarterectomy, right to left fe Diagnosis Discharge Diagnosis (1) Atherosclerosis of right lower extremity with rest pain: Status: Acute Code(s): I70.221 - Atherosclerosis of [place] arteries of extremities with rest pain, right leg (2) Atherosclerosis of [place] artery of left leg with rest pain: Status: Chronic Code(s): I70.222 - Atherosclerosis of [place] arteries of extremities with rest pain, left leg (3) Status post femorofemoral bypass surgery: Status: Acute Code(s): Z95.828 - Presence of other vascular implants and grafts Medications at Discharge Home Medications aspirin 81 mg chewable tablet 81 mg PO BREAKFAST SUPPLEMENT #30 tabs 03/20/24 atorvastatin 80 mg tablet 80 mg PO QHS CHOLESTEROL #30 tabs 03/20/24 metoprolol tartrate 25 mg tablet 25 mg PO BID BP 04/20/24 losartan 50 mg tablet 50 mg PO QDAY blood pressure #30 tabs 05/08/24 Held on 06/13/24. Instructions: Resume on 06/20/24. acetaminophen 500 mg tablet (Tylenol Extra Strength) 1,000 mg PO Q8H PRN PRN pain 05/19/24 gabapentin 300 mg capsule 300 mg PO TID 30 days #90 caps 06/13/24 oxycodone 5 mg tablet 10 mg (2 x 5 mg) PO Q8H PRN PRN Pain Score 6-10 5 days #30 tabs 06/13/24 rivaroxaban 20 mg tablet (Xarelto) 20 mg PO DAILY #30 tabs 06/13/24 Hospital Course Operations - (bilateral femoral endarterectomy, fem-fem bypass, and bilateral sartorius flaps) Summary of Care Provided Hospital Course: Mr. Genevieve Pereira is a 64 y/o male who underwent planned bilateral femoral endarterectomy, fem-fem bypass, and bilateral sartorius flaps on 06/11/24. The procedure was without complication and he tolerated it well. Postoperatively, he was routinely admitted to the ICU for hemodynamic and neurologic monitoring. He has been hemodynamically stable with stable Hgb on therapeutic heparin drip. He has been normotensive though on the lower side so losartan has been held; metoprolol continued. Postoperatively, he has had significant reperfusion type nerve pain in the feet, as well as pain at the sites of his left digit wounds. Gabapentin was initiated and this has helped. His pain has been well controlled on oral regimen of gabapentin 300mg TID, oxycodone 10mg PRN, and tylenol 1000 mg TID. The Prevena vacuum dressing was malfunctioning and function could not be restored, so I removed these dressings on POD#2 and replaced with Mepilex posto- op dressing. The incision sites were satisfactory in appearance with ecchymosis but no hematoma. He has been able to void without issue. He has had reduced appetite, but has tolerated what he has eaten. He has done well working with therapy. He feels ready for discharge home with his and other family members available to support. Physical Exam Const oriented x3 and no apparent distress Resp normal respiratory effort Cardio regular rate and regular rhythm Extremity Extremity Narrative: Bilateral groin incision sites with skin glue mostly intact, pulled away slightly at the inferior edge of the R groin wound; no dehiscence; mild ecchymosis with some dependent tracking towards the hip, soft to palpation; no erythema, focal edema, excess warmth. Palpable pulse and good signal through the bypass graft. Biphasic PT signals, monophasic DP signals bilaterally. Skin Wound Narrative: L digit wounds with stable dry eschar. No surrounding erythema, draingae, foul odor. Weight / BMI Weight Weight: 184 lb 15.485 oz Body Mass Index (BMI) 24.4 ABG / Lab / Microbiology Data 06/13/24 06:05 06/13/24 06:05 Laboratory: Laboratory Results - last 24 hr 06/12/24 21:15: APTT 203.3 H* 06/13/24 06:05: WBC 14.8 H, RBC 2.70 L, Hgb 9.1 L, Hct 24.7 L, MCV 91.5, MCH 33.7 H, MCHC 36.8 H, RDW Std Deviation 48.1 H, RDW Coeff of Brent 14.4, Plt Count 172, MPV 10.9, Immature Gran % (Auto) 0.500, Neut % (Auto) 80.3 H, Lymph % (Auto) 8.8 L, [place] % (Auto) 10.2 H, Eos % (Auto) 0.0, Baso % (Auto) 0.2, A bsolute Neuts (auto) 11.9 H, Absolute Lymphs (auto) 1.30, Nucleated RBC % 0, Diff Path Review May foll, Platelet Estimate A, APTT 45.4 H, Sodium 126 L, Potassium 4.1, Chloride 95 L, Carbon Dioxide 19.9 L, Anion Gap 11, BUN 7, C reatinine 0.54 L, Estim Creat Clear Calc 102.65, Est GFR (MDRD) Non-Af 110, BUN/Creatinine Ratio 12.0, Glucose 108 H, Calcium 8.1 06/13/24 13:45: APTT 40.7 H D/C Instructions Discharge Diet: No restrictions May shower in (days): 1 Weight Bearing Status: Weight bearing as tolerated Lifting Restricted to (Lbs): 20 Lifting Restrictions: Do not lift greater than 20 pounds for 3 weeks Additional Activity Instructions: Elevate your legs at times of rest to manage any swelling. Call your doctor if your incision/area has: Continuous Slow Oozing, Sudden Increased Bleeding, Increased Pain/ Swelling and Foul Smelling Discharge Call your doctor if you observe: Fever of 101 or Higher, Coldness, Increased Pain and Uncontrolled pain Remove Dressing in: 5 days DC O2, CPAP, BIPAP Needs Home O2 Discharge instructions: No Please Follow Up With: Sheron Oakes PA When: 06/24/24 Meaningful Use Info Meaningful Use Meaningful Use Diagnoses (Choose all that apply): None applicable Ischemic Stroke Statin Dosing Therapy Reference: STATIN DOSE THERAPY REFERENCE: * Patients > 75 years receive moderate or high dose statin therapy. * Patients 75 years or YOUNGER should receive HIGH intensity statin dose unless contraindicated. You will be required to document reason for non-treatment if statin daily dose does not meet guidelines. HIGH DOSE STATIN THERAPY DAILY Atorvastatin > than or = to 40 mg Rosuvastatin > than or = to 20 mg Amlodipine + Atorvastatin > than or = to 2.5/40 mg Ezetimibe + Simvastatin 10/80 mg Simvastatin 80mg Discharge Plan Admission Admit Date/Time: 06/11/24 13:21 Attending Provider: Robert Peter Primary Care Provider: Care Physician,No Primary Instructions Additional Instructions / Restrictions: 1. You have post-operative dressings over the bilateral groin incision sites. You may leave these on for 5 days as long as they remain clean and dry. If they become soiled or water gets underneath the dressing, it is best to remove them. The incision sites are closed with skin glue which will continue to protect it once the dressings are off; however, if you notice any drainage you can keep them covered with a dry gauze dressing that you change daily. 2. Do not lift greater than 20 pounds for 3 weeks. You may otherwise proceed with activity as tolerated. 3. You may shower tomorrow. No submerging the incision sites such as to take a bath, swim, etc for 3 weeks or until fully healed. 4. Continue to take you Aspirin 81mg tablet daily. Hold your Plavix for now. Start Xarelto 20mg tablet daily. Call the office with any signs of bleeding such as dark/bloody stools, urine, or persistent oozing from your incisions. 5. Your blood pressure has been on the lower side after surgery. It has been well-controlled with just the metoprolol while you have been here. Continue to hold your losartan for now. Please monitor your blood pressure daily at home. If it is consistently >150 systolic (top number) then you may restart your losartan. Call the office with any questions. 6. You are scheduled in the office for a follow-up visit on Saturday06/24/24 at 11:00 AM. If you need to change this appointment or have any other questions/concerns, please contact the office at [phone]. 7. Don't forget to call the podiatry office and make an appointment to establish care there. For now, continue to care for your toe wounds by applying the betadine around them and covering with dry gauze as you have been doing. Discharge Orders/Prescriptions Prescriptions: New gabapentin 300 mg Capsule 300 mg PO TID 30 Days Qty: 90 0RF oxycodone 5 mg Tablet 10 mg PO Q8H PRN PRN (Reason: Pain Score 6-10) 5 Days Qty: 30 0RF Rx Instructions: Take 1 to 2 tablets every 8 hours as needed for pain Xarelto 20 mg tablet 20 mg PO DAILY Qty: 30 1RF Rx Instructions: must administer with evening meal Continued metoprolol tartrate 25 mg tablet 25 mg PO BID aspirin 81 mg Tablet,Chewable 81 mg PO BREAKFAST Qty: 30 2RF atorvastatin 80 mg Tablet 80 mg PO QHS Qty: 30 2RF acetaminophen [Tylenol Extra Strength] 500 mg tablet 1,000 mg PO Q8H PRN PRN (Reason: pain) Held losartan 50 mg tablet 50 mg PO QDAY Qty: 30 11RF Hold Instructions: Resume on 06/20/24. Discontinued doxycycline hyclate 100 mg tablet 100 mg PO BID 7 Days Qty: 14 0RF tramadol 50 mg tablet 50 mg PO Q8H PRN (Reason: pain) 14 Days Qty: 42 0RF clopidogrel 75 mg Tablet 75 mg PO DAILY Qty: 30 2RF Referrals / Follow Up: Care Physician,No Primary [Primary Care Provider] - Disposition Disposition (needs filled in before D/C Order can be placed): Home, Self Care
[2024-06-13] MEDS: Rivaroxaban 20 MG Tablet PO (17:12)
[2024-06-17 12:26] LABS: ACT Activated Clotting Time 210 sec (74-137)
[2024-06-17 12:26] LABS: ACT Activated Clotting Time 273 sec (74-137)
[2024-06-17 12:26] LABS: ACT Activated Clotting Time 222 sec (74-137)
[2024-06-18 15:06] LABS: ACT Activated Clotting Time 239 sec (74-137)
[2024-06-23 21:50] LABS: ACT Activated Clotting Time 130 sec (74-137)
[2024-07-21 11:25] LABS: Pathologist Review Reviewed
== END 2024-06-13 17:30 | disposition home or self-care (01) | DRG 254 ==
PROVIDERS: Physician Assistant; Admitting Provider Surgery Trauma Surgery; Referring Provider Surgery Trauma Surgery; Visit Provider Surgery Trauma Surgery
PROC: 041K0KJ Bypass Right Femoral Artery to Left Femoral Artery with Nonautologous Tissue Substitute, Open Approach (ICD-10-PCS; principal; 2024-06-11 07:00)
DX: I74.5 Embolism and thrombosis of iliac artery (principal); E78.00 Pure hypercholesterolemia, unspecified; I70.222 Atherosclerosis of native arteries of extremities with rest pain, left leg; I10 Essential (primary) hypertension; F10.10 Alcohol abuse, uncomplicated; I70.203 Unspecified atherosclerosis of native arteries of extremities, bilateral legs; F12.90 Cannabis use, unspecified, uncomplicated; F17.210 Nicotine dependence, cigarettes, uncomplicated; Z95.820 Peripheral vascular angioplasty status with implants and grafts; Z79.02 Long term (current) use of antithrombotics/antiplatelets; Z79.82 Long term (current) use of aspirin; Z79.899 Other long term (current) drug therapy; Z79.891 Long term (current) use of opiate analgesic; Z87.2 Personal history of diseases of the skin and subcutaneous tissue
CPT/HCPCS: 36415; 80048; 85018; 85025; 85347; 85730; 86850; 86900; 86901; 88304; 88311; 94668; 97116; 97162; 97166; 97530; 97802; 99252; A4648; P9047; A4216; G0463; J2405

== ENCOUNTER 2024-06-21 07:31 | Emergency (ER) | payer MEDICARE, SELFPAY ==
[2024-06-21 07:31] VITALS: BP 152/91; PULSE 109; RESP 33; TEMP 36.7; O2SAT 93; BMI 22.7
--- NOTE | 2024-06-21 07:39 | EKG12_ITS ---
Test Reason : ABD PAIN Blood Pressure : */* mmHG Vent. Rate : 104 BPM Atrial Rate : 104 BPM P-R Int : 134 ms QRS Dur : 100 ms QT Int : 346 ms P-R-T Axes : 51 54 192 degrees QTcB Int : 454 ms Sinus tachycardia Minimal voltage criteria for LVH, may be normal variant ( Michael product ) ST & T wave abnormality, consider inferolateral ischemia Abnormal ECG Confirmed by DOUG HUNTER, XIOMARA ([id number]), film editor JAMES MENDOZA ([id number]) on 06/22/2024 8:19:44 AM Referred By: Robert Peter Confirmed By: XIOMARA CAMACHO MD
[2024-06-21 07:40] VITALS: TEMP 36.1
[2024-06-21] MEDS: 0.9% Normal Saline (1000mL) 1,000 ML 999 ML IV ×3 (07:44→08:55)
--- NOTE | 2024-06-21 07:44 | CT_ITS ---
PROCEDURE: CTA ABD W/RUNOFF W/WO CONTRAST REASON FOR EXAM: RECENT FEM BYPASS INCREASING PAIN Surgery reportedly 2 weeks ago. Increased abdominal pain. Hypertension. TECHNIQUE: Axial CTA images of the abdomen through lower extremities were performed with intravenous contrast material. Coronal and Sagittal reconstruction series were provided. 3D, 3D post processing, 3D reconstructions, Maximum intensity projection (MIPs) Volume rendering and One or more dose reduction techniques were used (e.g., Automated exposure control, adjustment of the mA and/or kV according to patient size, use of iterative reconstruction technique). COMPARISON: Preoperative CT angiogram of 03/16/2024. FINDINGS: At the visualized lung bases, bilateral dependent atelectasis is noted. Large amount of pneumoperitoneum is seen. A small to moderate amount of free fluid is now seen within the abdomen. Numerous dilated small bowel loops are now evident. A patent fem-fem bypass graft is seen. At the bilateral pelvic surgical sites, persistent subcutaneous air is noted, along with fluid collections. Cannot exclude the presence of infection at either site, particularly the right, with its irregularly thickened wall and larger size; recommend clinical correlation. Compared with the prior study of 03/16/2024, marked narrowing bilateral lower extremity arteries and atherosclerotic changes do not show significant interval change. With attention specifically on the left, no clear blood flow is seen beyond the level of the proximal left thigh. A fat containing right inguinal hernia is noted, with probable smaller one on the left. CT/CTA Abd w/Runoff W/WO Contrast IMPRESSION: 1. Large amount of pneumoperitoneum. 2. [id number] free fluid seen within the abdomen. 3. Numerous dilated small bowel loops are now seen. Recommend prompt surgical consultation. 4. At the bilateral pelvic surgical sites, persistent subcutaneous air is noted , along with fluid collections. Cannot exclude the presence of infection at either site, particularly the right; recommend cli nical correlation. 5. Patent fem-fem bypass graft. 6. Marked bilateral lower extremity arterial narrowing occlusion areas appear s imilar to the prior study. No apparent blood flow is seen beyond the level of the proximal left thigh. Reading Location: [address]
--- NOTE | 2024-06-21 07:45 | EX.ED.DYSGE1 ---
HPI History of Present Illness Chief Complaint: Abd Pain Narrative Narrative: Patient is a 64-year-old male with past medical history of peripheral arterial disease with recent femoral bypass surgery about 2 weeks ago, hypercholesteremia, hypertension, alcohol abuse who presented to the emergency department the chief complaint of abdominal pain. Patient states that a few hours ago he started developing increasing abdominal pain in the lower portion near his surgical site. 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 He states that he has been taking his medications as prescribed not missing doses. He rates his pain a 9 out of 10. PFSH PFSH Medical History Blister Easy bruising Excessive bleeding Wears glasses Marijuana use Arthritis High cholesterol History of pain when walking History of edema Hypertension History of echocardiogram History of stress test Cardiology follow-up encounter Atherosclerosis of right lower extremity with rest pain PAD (peripheral artery disease) Alcohol abuse Smoker Home Medications ?Medication ?Instructions ?Recorded ?Last Taken ?Type aspirin 81 mg chewable tablet 81 mg PO BREAKFAST SUPPLEMENT #30 03/20/24 06/11/24 04:30 Rx tabs atorvastatin 80 mg tablet 80 mg PO QHS CHOLESTEROL #30 tabs 03/20/24 06/10/24 23:00 Rx metoprolol tartrate 25 mg tablet 25 mg PO BID BP 04/20/24 06/11/24 04:30 History losartan 50 mg tablet 50 mg PO QDAY blood pressure #30 05/08/24 06/11/24 04:30 Rx Held on 06/13/24. tabs Instructions: Resume on 06/20/24. acetaminophen 500 mg tablet 1,000 mg PO Q8H PRN PRN pain 05/19/24 06/10/24 22:00 History (Tylenol Extra Strength) gabapentin 300 mg capsule 300 mg PO TID 30 days #90 caps 06/13/24 Unknown Rx oxycodone 5 mg tablet 10 mg (2 x 5 mg) PO Q8H PRN PRN 06/13/24 Unknown Rx Pain Score 6-10 5 days #30 tabs rivaroxaban 20 mg tablet (Xarelto) 20 mg PO DAILY #30 tabs 06/13/24 Unknown Rx clopidogrel 75 mg tablet (Plavix) 75 mg PO DAILY #30 tabs 06/20/24 Unknown Rx Allergy/AdvReac Type Severity Reaction Status Date / Time No Known Allergies Allergy Verified 06/11/24 05:53 Family History Father Colon cancer Surgical History History of excision of pilonidal cyst History of colonoscopy History of carotid endarterectomy History of cardiac catheterization Social History Smoking Status: Heavy Smoker (>10/day) ROS ROS ED ROS Narrative Constitutional: Denies fevers, chills, headaches Eyes: Denies change in vision double vision blurry vision Cardiovascular: Denies chest pain or palpitations Respiratory: Denies coughing wheezing shortness of breath Abdomen: Complains of abdominal pain as noted above and nausea denies vomiting or diarrhea : Denies urinary symptoms Neurological: Denies numbness, weakness, tingling Musculoskeletal: Denies back pain Skin: Denies rashes or lesions EXAM Physical Exam Narrative Exam Narrative: General: Patient lying in bed did not appear to be uncomfortable secondary to his pain Head: Atraumatic, normocephalic Eyes: PERRL bilateral, EOMI bilateral, no conjunctival injection noted Neck: Soft, supple, trachea midline Cardiovascular: Patient tachycardic with a regular rhythm no murmurs gallops rubs no Respiratory: Clear to auscultation bilaterally Abdomen: Soft, tenderness palpation in the lower portion of the abdomen no rebound or guarding on exam Genitourinary: No concern for Deb's gangrene, surgical incisions bilateral groin regions are healing well no surrounding erythema no purulent discharge noted there is ecchymosis throughout his groin region however he states that it has been this way and nothing is worse or changed he states that it is improving Extremities: +4/5 strength noted in the bilateral upper and lower extremities. Compartments are soft and compressible. Neurological: Patient was following commands knew that he was at [facility] year is 2024 Skin: Warm, dry, see genitourinary as well as he has chronic skin changes noted in his lower extremities Const Vital Signs: 06/21/24 07:31 06/21/24 07:40 06/21/24 07:51 Temperature 98.1 F 96.9 F L Temperature Source Axillary Axillary Pulse Rate 109 H Respiratory Rate 33 H Respiratory Pattern Tachypnea Blood Pressure 152/91 H Blood Pressure Mean 111 Pulse Ox 93 Oxygen Delivery Method Room Air Oxygen Flow Rate (L/min) 06/21/24 08:31 06/21/24 08:35 06/21/24 09:00 Temperature 98.1 F 96.6 F L Temperature Source Temporal Axillary Pulse Rate 96 100 89 Respiratory Rate 36 H 34 H 23 H Respiratory Pattern Blood Pressure 105/75 156/79 H 155/77 H Blood Pressure Mean 85 104 103 Pulse Ox 96 94 95 Oxygen Delivery Method Room Air Nasal Cannula Oxygen Flow Rate (L/min) 2 MDM MDM MDM Narrative Medical decision making narrative: Patient is a 64-year-old male who presented to the emerged part with chief complaint of abdominal pain status post femoral bypass surgery 2 weeks ago. On the differential diagnose includes but not limited to failed repair, bowel obstruction, ileus, diverticulitis, appendicitis. Once workup is obtained and reviewed he will be reevaluated. Patient given morphine Zofran IV fluids. His records were reviewed and the patient had femoro-femoral bypass with bilateral femoral endarterectomy and bilateral sartorius flaps. patient CBC reviewed and showed a leukocytosis of 23,000, hemoglobin 11, plate count was noted be 480. Patient sodium normal 132, potassium normal 3.8, creatinine was 1.42 which is elevated from his baseline to indicate acute kidney injury, lactic acid was 10 per lab when they call down to notify us. Patient AST and ALT are 49 and 22 respectively, lipase was 24. Patient's CTA abdomen pelvis reviewed by myself and by radiology which showed a large amount of pneumoperitoneum. Mild to moderate free fluid seen within the abdomen, numerous dilated small bowel loops are now seen recommending prompt surgical consultation. Bilateral pelvic surgical sites persist subcutaneous air is noted along with fluid collections cannot exclude the presence of infection at either site however clinically the sites do not appear infected. Patent femorofemoral bypass graft, marked bilateral lower extremity arterial narrowing occlusion areas appear similar to the prior study no apparent blood flows beyond the level of the proximal thigh. Patient was ordered Vanco and Zosyn at 8:39 AM this morning I did add on cultures and complete the 30 cc/kg bolus of IV fluids as well. Called and discussed case with on-call general surgeon Dr. Edwards who states that she would be in to evaluate the patient. I discussed the results with the patient and he states that he would want surgery he went everything done to save his life. I notified the patient and his family members that he is critically ill at this point in time. Dr. Edwards called and discussed with Dr. Peter herself and he states that this is likely just normal postsurgical changes and states that he does not feel that anything needs to be done at this point time. Patient will be admitted under her service to the intensive care unit for further evaluation management. Lab Data Labs: Laboratory Results - last 24 hr 06/21/24 07:36 WBC 23.3 H RBC 3.39 L Hgb 11.0 L Hct 32.5 L MCV 95.9 H MCH 32.4 H MCHC 33.8 RDW Std Deviation 50.3 H RDW Coeff of Brent 14.4 Plt Count 480 H MPV 11.1 Immature Gran % (Auto) 1.200 H Neut % (Auto) 91.0 H Lymph % (Auto) 4.9 L [place] % (Auto) 2.4 Eos % (Auto) 0.0 Baso % (Auto) 0.5 Absolute Neuts (auto) 21.3 H Absolute Lymphs (auto) 1.14 Nucleated RBC % 0.2 Differential Comment Sodium 132 L Potassium 3.8 Chloride 91 L Carbon Dioxide 14.9 L Anion Gap 27 H BUN 22 H Creatinine 1.42 H Estim Creat Clear Calc 55.01 Est GFR (MDRD) Non-Af 54 L BUN/Creatinine Ratio 15.3 Glucose 121 H Calcium 9.5 Total Bilirubin 0.89 AST 49 H ALT 22 Alkaline Phosphatase 119 Total Protein 6.7 Albumin 2.8 L Globulin 3.9 Albumin/Globulin Ratio 0.7 L Lipase 24 Radiography Diagnostic Testing: Clinical Impression(s) from Imaging Studies Abdomen/Pelvis CTA 06/21/24 07:44 IMPRESSION: 1. Large amount of pneumoperitoneum. 2. [id number]-[id number] free fluid seen within the abdomen. 3. Numerous dilated small bowel loops are now seen. Recommend prompt surgical consultation. 4. At the bilateral pelvic surgical sites, persistent subcutaneous air is noted, along with fluid collections. Cannot exclude the presence of infection at either site, particularly the right; recommend clinical correlation. 5. Patent fem-fem bypass graft. 6. Marked bilateral lower extremity arterial narrowing occlusion areas appear similar to the prior study. No apparent blood flow is seen beyond the level of the proximal left thigh. Reading Location: [address] Discharge Plan Triage Chief Complaint: Abd Pain ED Provider: Sivakumar Banerjee Dx/Rx/DC Orders Clinical Impression: Acidosis, lactic, Pneumoperitoneum, PAD (peripheral artery disease), Abdominal pain Prescriptions: No Action metoprolol tartrate 25 mg tablet 25 mg PO BID aspirin 81 mg Tablet,Chewable 81 mg PO BREAKFAST Qty: 30 2RF atorvastatin 80 mg Tablet 80 mg PO QHS Qty: 30 2RF acetaminophen [Tylenol Extra Strength] 500 mg tablet 1,000 mg PO Q8H PRN PRN (Reason: pain) gabapentin 300 mg Capsule 300 mg PO TID 30 Days Qty: 90 0RF oxycodone 5 mg Tablet 10 mg PO Q8H PRN PRN (Reason: Pain Score 6-10) 5 Days Qty: 30 0RF Rx Instructions: Take 1 to 2 tablets every 8 hours as needed for pain Xarelto 20 mg tablet 20 mg PO DAILY Qty: 30 1RF Rx Instructions: must administer with evening meal losartan 50 mg tablet 50 mg PO QDAY Qty: 30 11RF clopidogrel [Plavix] 75 mg tablet 75 mg PO DAILY Qty: 30 2RF Primary Care Provider: Care Physician,No Primary Referrals: Care Physician,No Primary [Primary Care Provider] - Print Language: Sami Disposition Disposition: Acute Care [facility]
[2024-06-21] MEDS: Ondansetron 4 MG/2 ML Vial IV (07:48)
[2024-06-21] MEDS: Morphine 4 MG/ML Syringe IV (07:48)
[2024-06-21 07:50] LABS: Absolute Lymphocyte Count 1.14 X10^3/uL (0.83-4.51); Absolute Neutrophil Count 21.3 X10^3/uL (2.0-7.7); Basophil# 0.12 X10^3/uL; Basophil% 0.5 % (0-1); Hematocrit 32.5 % (40-54); Lymphocyte # 1.14 X10^3/ul (0.83-4.51); Lymphocyte % 4.9 % (19-41); Mean Corp Hgb Conc 33.8 g/dL (32-36); Mean Corpuscular Hgb 32.4 pg (27.0-32.0); Mean Corpuscular Volume 95.9 fL (80-94); Mean Platelet Vol. 11.1 fl (6.2-12.0); Monocyte# 0.55 X10^3/uL; Monocyte% 2.4 % (0-10); NRBC Flagged by Analyzer 0.2 % (0-5); Neutrophil # 21.25 X10^3/uL (2.7-7.7); POSITIVE DIFFERENTIAL YES; POSITIVE MORPHOLOGY YES; Platelet Count 480 K/mm3 (150-450); RBC Distribution Width CV 14.4 % (11.6-14.6); RBC Distribution Width SD 50.3 fl (35.1-43.9); Red Blood Count 3.39 M/mm3 (4.6-6.2); White Blood Count 23.3 K/mm3 (4.4-11.0)
[2024-06-21 08:18] LABS: Lipase 24 U/L (13-75)
[2024-06-21 08:24] LABS: Differential Indicated SCAN CRITERIA MET
[2024-06-21 08:30] LABS: ALB/GLOB Ratio 0.7 RATIO (0.9-2.4); AST(SGOT) 49 U/L (<=37); Alanine Aminotransfer ALT/SGPT 22 U/L (<=46); Albumin, Serum 2.8 g/dL (3.4-4.8); Alkaline Phosphatase 119 U/L (40-129); Anion Gap 27 (5-15); BUN 22 mg/dL (4-19); BUN/Creat Ratio 15.3 RATIO (10-20); Calcium,Total 9.5 mg/dL (7.6-11.0); Carbon Dioxide 14.9 mmol/L (21.0-32.0); Chloride 91 mmol/L (98-108); Creatinine, Serum 1.42 mg/dL (0.70-1.20); EST Glomerular Filtration Rate 54 (>60); Estimated Creatinine Clearance 55.01 ml/min (50-250); Globulin 3.9 g/dL (2.2-4.2); Glucose 121 mg/dL (70-99); Potassium 3.8 mmol/L (3.3-5.1); Protein, Total 6.7 g/dL (5.9-8.4); Sodium Level 132 mmol/L (133-145); Total Bilirubin 0.89 mg/dL (0.00-1.30)
[2024-06-21 08:31] VITALS: BP 105/75; PULSE 96; RESP 36; O2SAT 96
[2024-06-21 08:35] VITALS: BP 156/79; PULSE 100; RESP 34; TEMP 36.7; O2SAT 94
[2024-06-21] MEDS: Piperacil/Tazobactam 4.5 GM in 0.9% Normal Saline (100mL MB+) 100 ML IV (08:52)
[2024-06-21 09:00] VITALS: BP 155/77; PULSE 89; RESP 23; TEMP 35.9; O2SAT 95
--- NOTE | 2024-06-21 09:13 | PCM.HP.STD ---
HPI - General General Date of Service: 06/21/24 HPI Narrative ZEUS OBREGON, is a 64 M who presents due to diffuse abdominal pain started 4 AM this morning. Patient status post recent bypass about a week ago. Patient states he has not really been eating much as he has had pain every time he eats in the lower abdomen. Patient CT abdomen pelvis shows pneumoperitoneum, there is some fluid and small air bubbles by the anastomosis site for the femorofemoral likely this is postop. Patient white blood count is 23.3 patient did get Zosyn 3.375 g IV x 1 in the ER. Patient is on aspirin and was on Xarelto but does not take after Saturday due to adverse reaction. Patient has not started his Plavix as he just picked it up. PFSH Medical History Blister Easy bruising Excessive bleeding Wears glasses Marijuana use Arthritis High cholesterol History of pain when walking History of edema Hypertension History of echocardiogram History of stress test Cardiology follow-up encounter Atherosclerosis of right lower extremity with rest pain PAD (peripheral artery disease) Alcohol abuse Smoker Home Medications ?Medication ?Instructions ?Recorded ?Last Taken ?Type aspirin 81 mg chewable tablet 81 mg PO BREAKFAST SUPPLEMENT #30 03/20/24 06/11/24 04:30 Rx tabs atorvastatin 80 mg tablet 80 mg PO QHS CHOLESTEROL #30 tabs 03/20/24 06/10/24 23:00 Rx metoprolol tartrate 25 mg tablet 25 mg PO BID BP 04/20/24 06/11/24 04:30 History losartan 50 mg tablet 50 mg PO QDAY blood pressure #30 05/08/24 06/11/24 04:30 Rx Held on 06/13/24. tabs Instructions: Resume on 06/20/24. acetaminophen 500 mg tablet 1,000 mg PO Q8H PRN PRN pain 05/19/24 06/10/24 22:00 History (Tylenol Extra Strength) gabapentin 300 mg capsule 300 mg PO TID 30 days #90 caps 06/13/24 Unknown Rx oxycodone 5 mg tablet 10 mg (2 x 5 mg) PO Q8H PRN PRN 06/13/24 Unknown Rx Pain Score 6-10 5 days #30 tabs rivaroxaban 20 mg tablet (Xarelto) 20 mg PO DAILY #30 tabs 06/13/24 Unknown Rx clopidogrel 75 mg tablet (Plavix) 75 mg PO DAILY #30 tabs 06/20/24 Unknown Rx Allergy/AdvReac Type Severity Reaction Status Date / Time No Known Allergies Allergy Verified 06/11/24 05:53 Family History Father Colon cancer Surgical History History of excision of pilonidal cyst History of colonoscopy History of carotid endarterectomy History of cardiac catheterization Social History Smoking Status: Heavy Smoker (>10/day) Vital Signs Vital Signs Vital Signs: 06/21/24 07:31 06/21/24 07:40 06/21/24 07:51 Temperature 98.1 F 96.9 F L Temperature Source Axillary Axillary Pulse Rate 109 H Respiratory Rate 33 H Respiratory Pattern Tachypnea Blood Pressure 152/91 H Blood Pressure Mean 111 Pulse Ox 93 Oxygen Delivery Method Room Air Oxygen Flow Rate (L/min) 06/21/24 08:31 06/21/24 08:35 06/21/24 09:00 Temperature 98.1 F 96.6 F L Temperature Source Temporal Axillary Pulse Rate 96 100 89 Respiratory Rate 36 H 34 H 23 H Respiratory Pattern Blood Pressure 105/75 156/79 H 155/77 H Blood Pressure Mean 85 104 103 Pulse Ox 96 94 95 Oxygen Delivery Method Room Air Nasal Cannula Oxygen Flow Rate (L/min) 2 Weight Weight: 167 lb 8.821 oz Body Mass Index (BMI) 22.7 Physical Exam Const alert, oriented x3 and no apparent distress HEENT normocephalic and head/scalp atraumatic Resp normal respiratory effort Cardio regular rate GI soft to palpation GI Narrative: Umbilical hernia Inspection: abdominal distention Palpation: tender other (Diffuse with rebound) and guarding Extremity Extremity Narrative: Bilateral femoral incisions healing well, ecchymosis more so on the right present, Neuro CN's II-XII intact bilaterally Psych mental status grossly normal Results Lab / Micro Data 06/21/24 07:36 06/21/24 07:36 Labs: Laboratory Results - last 24 hr 06/21/24 07:36: WBC 23.3 H, RBC 3.39 L, Hgb 11.0 L, Hct 32.5 L, MCV 95.9 H, MCH 32.4 H, MCHC 33.8, RDW Std Deviation 50.3 H, RDW Coeff of Brent 14.4, Plt Count 480 H, MPV 11.1, Immature Gran % (Auto) 1.200 H, Neut % (Auto) 91.0 H, Lymph % (Auto) 4.9 L, [place] % (Auto) 2.4, Eos % (Auto) 0.0, Baso % (Auto) 0.5, Absolute Neuts (auto) 21.3 H, Absolute Lymphs (auto) 1.14, Nucleated RBC % 0.2, Differential Comment , Sodium 132 L, Potassium 3.8, Chloride 91 L, Carbon Dioxide 14.9 L, Anion Gap 27 H, BUN 22 H, Creatinine 1.42 H, Estim Creat Clear Calc 55.01, Est GFR (MDRD) Non-Af 54 L, BUN/Creatinine Ratio 15.3, Glucose 121 H, Calcium 9.5, Total Bilirubin 0.89, AST 49 H, ALT 22, Alkaline Phosphatase 119, Total Protein 6.7, Albumin 2.8 L, Globulin 3.9, Albumin/Globulin Ratio 0.7 L, Lipase 24 Imaging Radiology Impression Abdomen/Pelvis CTA 06/21/24 07:44 IMPRESSION: 1. Large amount of pneumoperitoneum. 2. Tqyn-qh-uyhbzych free fluid seen within the abdomen. 3. Numerous dilated small bowel loops are now seen. Recommend prompt surgical consultation. 4. At the bilateral pelvic surgical sites, persistent subcutaneous air is noted, along with fluid collections. Cannot exclude the presence of infection at either site, particularly the right; recommend clinical correlation. 5. Patent fem-fem bypass graft. 6. Marked bilateral lower extremity arterial narrowing occlusion areas appear similar to the prior study. No apparent blood flow is seen beyond the level of the proximal left thigh. Reading Location: [id number] Assessment & Plan Assessment/Plan (1) Pneumoperitoneum: (2) Leukocytosis: (3) Status post femorofemoral bypass surgery: PLAN: Plan Discussed with patient and family on plan for exploratory laparotomy, possible bowel resection, possible ostomy. Discussed procedure including risk including bleeding, infection, staying intubated in the ICU after surgery, and . Patient and family no further questions this time. Patient did wish to be a full code?would want intubation and CPR if needed. Vero Edwards M.D. Pager: [phone] [facility] [address] [place] [address], [address] [place] [address] Office: [phone]
[2024-06-21 09:25] VITALS: BP 154/89; PULSE 101; RESP 38; TEMP 35.9; O2SAT 94
--- NOTE | 2024-06-21 09:30 | RAD_ITS ---
PROCEDURE: ABDOMEN SINGLE VIEW (PORTABLE) 06/21/2024 REASON FOR EXAM: FREE AIR. NG tube placement. TECHNIQUE: Limited view of the lower chest and upper abdomen.. COMPARISON: CT angiogram 06/21/2024. RAD/Abdomen Single View (Portable) IMPRESSION: Prominent pneumoperitoneum is again seen. A nasogastric tube is seen coiled at the stomach. Partially visualized bowel again shows dilated small bowel loops. Reading Location: [id number]
[2024-06-21] MEDS: Vancomycin HCl 1,250 MG in 0.9% Normal Saline (250mL Bag) 250 ML 167 MG IV (09:41)
--- NOTE | 2024-06-21 09:44 | PCM.PRE.AN2 ---
ASA Classification* ASA Classification ASA Classification: 3 and E Assessment & Plan Anesthesia* Anesthesia Assessment Anesthesia Assessment: Discussed sedation and/or anesthesia options, risks, benefits, and alternatives with patient/parents/legal guardian/POA. Questions invited. The patient/parents/legal guardian/POA seems to understand and agrees to proceed with anesthesia plan. Reviewed the physical assessment, medical history, allergy history and patient home medications list prior to surgery/procedure/anesthetic and documented any changes. Performed airway and anesthesia risk assessments. Anesthesia Type Anesthesia Type: General History Source History Obtained from:: Patient and Chart Anesthesia Focused Assessment* Temperature: 96.7 F Pulse Rate: 101 Blood Pressure: 154/89 Respiratory Rate: 38 Pulse Ox: 94 Oxygen Flow Rate (L/min): 2 Airway Assessment Mouth opens: >3 cm Mallampati Score: III Focused Labs Anesthesia Preop lab: CBC WBC 23.3 K/mm3 (4.4-11.0) H 06/21/24 07:36 06/21/24 RBC 3.39 M/mm3 (4.6-6.2) L 06/21/24 07:36 06/21/24 Hgb 11.0 g/dL (13.0-16.5) L 06/21/24 07:36 06/21/24 Hct 32.5 % (40-54) L 06/21/24 07:36 06/21/24 Plt Count 480 K/mm3 (150-450) H 06/21/24 07:36 06/21/24 CHEMISTRY Potassium 3.8 mmol/L (3.3-5.1) 06/21/24 07:36 06/21/24 Sodium 132 mmol/L (133-145) L 06/21/24 07:36 06/21/24 BUN 22 mg/dL (4-19) H 06/21/24 07:36 06/21/24 Creatinine 1.42 mg/dL (0.70-1.20) H 06/21/24 07:36 06/21/24 Glucose 121 mg/dL (70-99) H 06/21/24 07:36 06/21/24 TSH 5.470 uIU/mL (0.358-3.740) H 03/17/24 04:49 03/17/24 COAG PT 12.9 SECONDS (11.7-14.9) 05/06/24 14:26 05/06/24 Pre-Assessment Anesthesia History 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 When Was Last Pacemaker Check QUESTION #4 FULL TEXT: You/Your Family Experience fever (hyperthermia) with Anesthesia Last Oral Intake Last Oral intake: Last Oral Intake NPO since Meds taken in AM with sips of water? 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 Female HX of Motion Sickness HX of N/V After Surgery Non-Smoker Duration of Surgery greater than 60 minutes Number of Risk Factors PONV Score Height & Weight Height & Weight: Anesthesia: Height & Weight Height 6 ft 06/21/24 07:31 Weight: 76 kg 06/21/24 07:31 Body Mass Index (BMI) 22.7 06/21/24 07:31 Respiratory Assessment Respiratory Assessment - hoisting pile driving engineer: Respiratory Tract Infection Hx - hoisting pile driving engineer Hx Respiratory Tract Infection No 05/29/24 10:01 STOP Sleep Apnea STOP Sleep Apnea - hoisting pile driving engineer: STOP Sleep Apnea - hoisting pile driving engineer Hx Hypertension Yes: CONTROLLED WITH MED 06/12/24 12:23 Hx Sleep Apnea No 05/29/24 10:01 CPAP No 06/11/24 14:03 BIPAP Do you snore loudly (louder than talking or can be heard Do you often feel tired/ fatigued/ sleepy during daytime? Has anyone observed you stop breathing during sleep? STOP Results QUESTION #5 FULL TEXT : Do you snore loudly (louder than talking or can be heard through closed doors)? 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 Specify any problems Hx of Preganancy in last 3 Months Nurse Filling Out Transfusion & Questions: Date: Time: Patient unable to answer at this time (ie. 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: /Reproductive Hx- hoisting pile driving engineer Hx Now Gestational Age (in weeks): EDC: Hx Hx Para Hx Section SAB No 05/26/24 08:30 Active Medications Active Medications: Current Medications Generic Name Dose Route Start Last Admin Trade Name Freq PRN Reason Stop Dose Admin Vancomycin HCl 1,250 mg/ 275 mls @ 167 mls/hr 06/21/24 08:39 06/21/24 09:41 Sodium Chloride IV 06/21/24 10:17 167 mls/hr X1 ONE Administration PFSH Medical History Blister Easy bruising Excessive bleeding Wears glasses Marijuana use Arthritis High cholesterol History of pain when walking History of edema Hypertension History of echocardiogram History of stress test Cardiology follow-up encounter Atherosclerosis of right lower extremity with rest pain PAD (peripheral artery disease) Alcohol abuse Smoker Home Medications ?Medication ?Instructions ?Recorded ?Last Taken ?Type aspirin 81 mg chewable tablet 81 mg PO BREAKFAST SUPPLEMENT #30 03/20/24 06/11/24 04:30 Rx tabs atorvastatin 80 mg tablet 80 mg PO QHS CHOLESTEROL #30 tabs 03/20/24 06/10/24 23:00 Rx metoprolol tartrate 25 mg tablet 25 mg PO BID BP 04/20/24 06/11/24 04:30 History losartan 50 mg tablet 50 mg PO QDAY blood pressure #30 05/08/24 06/11/24 04:30 Rx Held on 06/13/24. tabs Instructions: Resume on 06/20/24. acetaminophen 500 mg tablet 1,000 mg PO Q4H PRN pain 05/19/24 06/10/24 22:00 History (Tylenol Extra Strength) gabapentin 300 mg capsule 300 mg PO TID 30 days #90 caps 06/13/24 Unknown Rx clopidogrel 75 mg tablet (Plavix) 75 mg PO DAILY #30 tabs 06/20/24 Unknown Rx amlodipine 10 mg tablet 10 mg PO DAILY 06/21/24 Unknown History oxycodone 5 mg tablet 10 mg PO Q8 PRN Pain Score 6-10 06/21/24 06/20/24 History Allergy/AdvReac Type Severity Reaction Status Date / Time No Known Allergies Allergy Verified 06/11/24 05:53 Family History Father Colon cancer Surgical History History of excision of pilonidal cyst History of colonoscopy History of carotid endarterectomy History of cardiac catheterization Social History Smoking Status: Heavy Smoker (>10/day) Prior Cardiac Testing/Procedures Prior Cardiac Testing/Procedures: Echocardiogram and Stress Test Review of Systems (Anesthesia) ROS Narrative System reviewed and no additional complaints, except as documented.
--- NOTE | 2024-06-21 10:38 | ED.RN ---
Pt. brought back into ER room 1 and arrived at 1034. Dr. Banerjee at bedside. Pronounced by Dr. Banerjee at 1036.
--- NOTE | 2024-06-21 10:46 | ED.RN ---
THIS RN RESPONDED TO RAPID RESPONSE CALLED AT 1008 IN [facility]. UPON ARRIVAL CPR WAS IN PROGRESS. CPR STARTED AT 1009. THE CODE WAS DOCUMENTED ON PAPER BY [employer] KAMALJIT LOPEZ AND TRANSFERRED TO ELECTRONIC DOCUMENTATION BY THIS RN. PT CARE TRANSFERRED BACK TO ED STAFF AT 1032 IN PACU. PT ARRIVED IN ED AT 1034. TIME OF CALLED BY DR. GLENN MASTERSON AT 1036.
--- NOTE | 2024-06-21 10:55 | PCM.CODE.SUM ---
Code Blue Report Code Blue Summary Code Blue Summary: Mr. Pereira is a 64-year-old male who presented to the hospital with abdominal pain. Initial workup demonstrated pneumoperitoneum of unknown etiology. Medicine has been consulted for assistance in management after the OR however on the way to the operating room a rapid response was called at approximately 1010. On my arrival CPR was in progress as he lost his pulse. Reports indicated that he had gone to a wide-complex tachycardia he was transported into PACU where CPR was continued. He was given 2 rounds of epinephrine with no significant response, he was shocked 1 time for what appeared to be V-fib. He was given 2 g of magnesium as well as an amp of bicarb and he did recover a pulse after family had requested discontinuation of CPR. He was ventilated with a bag mask and while I was having discussions with family about transportation to the ICU to be placed on a ventilator pending further family arrival he went into torsades. Another 4 g of magnesium were given without response and family requested no further CPR or shocking. He did have a thready pulse at this time and was continued to be bagged on his way back to the emergency room where he lost his pulse. Time of was 1036 on 06/21/2024. Time spent: 25 minutes critical care time
--- NOTE | 2024-06-21 11:40 | CM.ED ---
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 Lvn Lpn provided comfort and condolences. Family very thankful and denied any other needs at this time. Antonietta Jensen, COMBINING MACHINE OPERATOR, CORPORATE LAW ASSISTANT
[2024-06-22 00:09] LABS: Lactic Acid 10.9 mmol/L (0.0-2.0)
== END 2024-06-21 13:22 ==
LOC: ED 09:31 → SDC 09:58 → ACINP 21:05 → ED 21:25
PROVIDERS: Emergency Provider Emergency Medicine; Visit Provider Emergency Medicine
DX: E87.20 Acidosis, unspecified (principal); R10.9 Unspecified abdominal pain; E78.00 Pure hypercholesterolemia, unspecified; I10 Essential (primary) hypertension; F10.10 Alcohol abuse, uncomplicated; Z79.82 Long term (current) use of aspirin; Z79.01 Long term (current) use of anticoagulants; F17.200 Nicotine dependence, unspecified, uncomplicated; Z98.890 Other specified postprocedural states; N17.9 Acute kidney failure, unspecified; K66.8 Other specified disorders of peritoneum; I73.9 Peripheral vascular disease, unspecified; Z79.899 Other long term (current) drug therapy
CPT/HCPCS: 31500; 74018; 75635; 80053; 83605; 83690; 85025; 87040; 92950; 93005; 96361; 96365; 96366; 96367; 96375; 99285; Q9967; A4216; J2405; J3475